=== PATIENT | male | born 1950 | race Caucasian/White ===

== ENCOUNTER 2019-02-09 17:26 | Emergency (ER) | payer MEDICARE ==
[2019-02-09 17:58] LABS: #Basophils 0.1 thou/uL (0.0-0.2); #Eosinphils 0.1 thou/uL (0.0-0.7); #Lymphocytes 1.7 thou/uL (1.20-3.40); #Monocytes 0.4 thou/uL (0.11-0.59); #Neutrophils 4.2 thou/uL (1.40-6.50); %Basophils 1.4 % (0.0-1.0); %Eosinophils 1.4 % (0.0-10.0); %Lymphocytes 26.2 % (21.0-51.0); %Monocytes 6.7 % (0.0-10.0); %Neutrophils 64.4 % (42.0-75.0); Hemoglobin 16.6 g/dL (14.0-18.0); Mean Corpuscular Hemoglobin 27.5 pg (27.0-31.0); Mean Corpuscular Volume 83.5 fL (78.0-98.0); Mean Platelet Volume 7.6 fL (7.4-10.4); Platelet Count 216 thou/uL (130-400); RBC Distribution Width 13.3 % (11.5-14.5); Red Blood Cell (RBC) Count 6.02 mill/uL (4.70-6.10); White Blood Cell (WBC) Count 6.5 thou/uL (4.8-10.8)
[2019-02-09 18:20] LABS: ALT (SGPT) 17 U/L (8-55); AST (SGOT) 18 U/L (5-34); Albumin 4.1 g/dL (3.4-4.8); Alkaline Phosphatase 90 U/L (40-150); Anion Gap 16 mmol/L (10-20); BUN (Urea Nitrogen) 17 mg/dL (8.4-25.7); Bilirubin, Total 0.6 mg/dL (0.2-1.2); Calc. Creatinine Clearance 0 mL/min (70-130); Calcium 9.4 mg/dL (7.8-10.44); Carbon Dioxide 23 mmol/L (23-31); Chloride 103 mmol/L (98-107); Estimated GFR-MDRD 78; Glucose 307 mg/dL (80-115); Potassium 3.8 mmol/L (3.5-5.1); Protein, Total 7.1 g/dL (5.8-8.1); Sodium 138 mmol/L (136-145)
--- NOTE | 2019-02-09 18:30 | CT ---
FCT head without contrast: Multiple axial tomograms obtained through the head without IV enhancement. INDICATIONS: Seizure COMPARISON: None FINDINGS: Ventricles have normal size and position. Mild frontal lobe volume loss. No evidence of hemorrhage, mass, or acute cortical infarct. There are focal areas of low-attenuation seen in the periventricular white matter and the deep white matter both cerebral hemispheres. While these findings may represent chronic ischemic white matter ch cara, the focal nature is somewhat atypical. Visualized sinuses and mastoids appear clear. Bony calvarium appears unremarkable. IMPRESSION: Multiple focal areas low attenuation in the periventricular and deep white matter of both cerebral he mispheres. Findings may represent old lacunar infarcts and/or chronic ischemic white matter change. T he focal appearance is atypical. Recommend further evaluation with MRI brain with and without contras t.
--- NOTE | 2019-02-09 21:33 | MRI ---
MRI BRAIN WITH AND WITHOUT CONTRAST: Technique: Multiplanar, multisequence MRI images were obtained of the brain. Post gadolinium images o btained after administering IV MultiHance. Indications: Dizziness, weakness, possible seizure. Exam was also performed in follow up to the CT he ad which showed focal areas of low attenuation in the deep white matter of both cerebral hemispheres. FINDINGS: The exam is somewhat degraded due to motion artifact on all sequences. Ventricles have normal size and position. FLAIR sequence shows areas of high signal in the periventri cular white matter bilaterally, corresponding to the CT findings. There is no abnormal enhancement as sociated with these foci. There is no restricted diffusion seen, and therefore, no evidence of acute cortical or lacunar infarct. There is no mass or edema within the brain. The intracranial internal carotid arteries and proximal cerebral arteries demonstrate expected flow v oids. Dural venous sinuses appear patent. Orbits unremarkable. Paranasal sinuses and mastoids appear clear. IMPRESSION: Increased T2 and FLAIR signal in the periventricular white matter corresponding to the areas of low a ttenuation seen on CT. No abnormal enhancement. Findings are probably related to chronic microvascula r ischemic white matter change in a patient of this age. POS: JUSTUS
== END 2019-02-09 21:52 | disposition home or self-care (01) ==
LOC: ERS 17:26
DX: R56.9 Unspecified convulsions (principal); E11.9 Type 2 diabetes mellitus without complications; M10.9 Gout, unspecified; F17.210 Nicotine dependence, cigarettes, uncomplicated
CPT/HCPCS: 36415; 70450; 70553; 80053; 85025; 93005

== ENCOUNTER 2019-11-23 03:12 | Inpatient (IN) | payer MEDICARE ==
[2019-11-23] MEDS ORDERED: Acetaminophen 325 MG TAB PO PRN (04:42)
[2019-11-23 05:06] LABS: Troponin I Less than 0.010 ng/mL (< 0.028)
--- NOTE | 2019-11-23 05:26 | HP ---
PRIMARY CARE PHYSICIAN: None. CHIEF COMPLAINT: Shortness of breath. HISTORY OF PRESENT ILLNESS: A 69-year-old male, limited historian, who presented to [facility] ER for shortness of breath that awoke him from his sleep, associated with cough, prompting further evaluation. The patient reports being in his usual state of health and being functional active at baseline. He reports at 4:00 p.m. feeding his Haley and tending to routine chores and at 7:30 p.m., eating tuna fish with crackers and then going to sleep. He awoke several hours later with some vague epigastric discomfort and shortness of breath and coughing episode expiratory and his boss called paramedics for further evaluation. The patient was placed on oxygen nasal cannula at a tertiary ER and a chest x-ray suggested bibasilar crackles. BNP was mildly elevated at 266.5, and the patient was administered oral aspirin, 80 mg IV Lasix, oral lisinopril, and transferred to [facility] ER for further evaluation. In ER, the patient was reported to be desaturating to 80s on room air and maintained with oxygen nasal cannula with appropriate oxygenation. At bedside, the patient reports feeling improved. Since hospitalization, he has voided a little bit. He denies any orthopnea or lower extremity edema or recent changes in functional status or angina. He denies any fevers or chills or any sick contacts. He does not use any nebulizer treatments at home and notes chronic tobacco use history. PAST MEDICAL HISTORY: None reported, and the patient does not seek any chronic medical care. PAST SURGICAL HISTORY: Right knee ACL repair. SOCIAL HISTORY: The patient admits to tobacco use, 1 pack to 1-1/2 packs per day. He denies alcohol or illicit drug use. ALLERGIES: ARE LISTED TO IBUPROFEN AND ADVIL. REVIEW OF SYSTEMS: Positive for chills. Pertinent positives noted as per HPI. Remainder of the review of systems negative. HOME MEDICATIONS: Will be reviewed as per admission medication reconciliation. FAMILY HISTORY: The patient notes longevity in both his family members. PHYSICAL EXAMINATION: VITAL SIGNS: Temperature 97.5, pulse 80s to 90s, sinus rhythm, blood pressure 137/85, oxygen saturation 94% on 2 L nasal cannula, and respirations 16 to 18 unlabored. GENERAL APPEARANCE: Elderly rugged-appearing male who is awake, alert, oriented, and limited historian, not in any obvious distress. HEENT: Normocephalic, atraumatic. No facial asymmetry. Pupils equally round. Extraocular muscles intact. Moist mucous membranes. NECK: Supple. CARDIOVASCULAR: S1, S2. Regular rate and rhythm. There is an audible S3. There are no harsh murmurs noted. There is no chest wall tenderness to palpation. LUNGS: Nonlabored respiration on bilateral posterior auscultation, coarse scattered breath sounds throughout bilateral posterior lung lopez with bibasilar rales noted. ABDOMEN: Soft, nontender, nondistended. No peritoneal signs. EXTREMITIES: No appreciable edema, cyanosis, or deformity. SKIN: Warm to touch without rash or pallor. Scattered abrasions throughout the body noted. LABORATORY DATA: Sodium 140, potassium 4.2, chloride 103, bicarb 27, glucose 242, BUN and creatinine 13/0.92, GFR 82. LFTs unremarkable. Troponin I negative x1. BNP 266.5. Albumin 4.0. WBC 7.9, hemoglobin and hematocrit 15.7/52.5, platelets 209. IMAGING DATA: One-view chest x-ray done in the ER. Official result is still pending, but reported to suggest bibasilar rales. ASSESSMENT: 1. Acute hypoxic respiratory failure, suspected secondary to acute congestive heart failure exacerbation. 2. Acute congestive heart failure exacerbation of unspecified type. 3. Chronic nicotine dependence. PLAN: 1. The patient will be admitted as inpatient status and placed on telemetry monitoring. He has been placed on oxygen nasal cannula, received 80 mg of IV Lasix with improvement in the symptoms and starting to diurese. We will monitor serial cardiac biomarkers to exclude acute coronary syndrome. We will obtain transthoracic echocardiogram to evaluate for any cardiac, structural, or valvular abnormalities. Continue IV Lasix. Monitor for electrolyte derangements. Monitor for weaning off oxygen nasal cannula for any other causes that may be contributing to resting hypoxia. The patient has good functional status and denies any concerns for venous stasis. 2. Deep venous thrombosis prophylaxis with Lovenox. 3. Check a.m. labs on 11/24/2019. CODE STATUS: Full code. The patient seen and examined on 11/23/2019. Job ID: [id number]
[2019-11-23] MEDS ORDERED: Nicotine 21 MG PATCH TD PRN (06:00)
[2019-11-23 06:03] VITALS: BMI 34.0
[2019-11-23] MEDS ORDERED: Dextrose 50% Abboject 50 ML SYRINGE SLOW IVP PRN (07:44)
[2019-11-23] MEDS ORDERED: Dextrose 5% in Water 1,000 ML IV PRN (07:44)
[2019-11-23 08:00] LABS: Troponin I 0.022 ng/mL (< 0.028)
[2019-11-23] MEDS ORDERED: levETIRAcetam 500 MG TAB PO SCH (10:00)
[2019-11-23] MEDS: Enoxaparin Sodium 40 MG/0.4 ML SYRINGE SC SCH (10:18)
[2019-11-23] MEDS: Furosemide 40 MG/4 ML VIAL SLOW IVP SCH ×2 (10:19→13:32)
[2019-11-23] MEDS: HumaLOG 300 UNITS/3 ML VIAL SC PRN ×2 (13:32→18:46)
--- NOTE | 2019-11-23 16:16 | PDOC.EVN ---
Event Note - Event Note Event Note: Patient seen and examined. He says he was told at one time that he was a borderline diabetic, but was not aware of being diabetic. Continues to smoke 1- 1.5 PPD cigs. Feeling much better overall. Heart RRR. Lungs diminished, but otherwise clear. Abd. benign. No edema. Continue diuresis. Follow up on echo. Diabetic diet, po meds.
[2019-11-23] MEDS: metFORMIN 500 MG TAB PO SCH (16:54)
[2019-11-23] MEDS: levETIRAcetam 500 MG TAB PO SCH (21:08)
[2019-11-24 04:45] LABS: Anion Gap 13 mmol/L (10-20); BUN (Urea Nitrogen) 20 mg/dL (8.4-25.7); Calc. Creatinine Clearance 106 mL/min (70-130); Calcium 9.2 mg/dL (7.8-10.44); Carbon Dioxide 30 mmol/L (23-31); Chloride 93 mmol/L (98-107); Estimated GFR-MDRD 76; Glucose 211 mg/dL (80-115); Potassium 3.2 mmol/L (3.5-5.1); Sodium 133 mmol/L (136-145)
[2019-11-24] MEDS ORDERED: Potassium Chloride 20 MEQ TAB PO SCH (07:45)
[2019-11-24] MEDS: metFORMIN 500 MG TAB PO SCH (08:53)
[2019-11-24] MEDS: Enoxaparin Sodium 40 MG/0.4 ML SYRINGE SC SCH (08:54)
[2019-11-24] MEDS: levETIRAcetam 500 MG TAB PO SCH ×2 (08:54→20:37)
[2019-11-24] MEDS: Aspirin Chewable 81 MG TAB PO SCH (08:54)
[2019-11-24] MEDS: HumaLOG 300 UNITS/3 ML VIAL SC PRN ×3 (08:57→19:44)
[2019-11-24] MEDS ORDERED: Communication Order-Pharmacy FS SCH ×2 (12:30→13:00)
--- NOTE | 2019-11-24 13:44 | CON ---
DATE OF CONSULTATION: HISTORY OF PRESENT ILLNESS: Wes Torre is a 69-year-old white male without any significant previous health problems except he thinks he has diabetes. He also has a seizure disorder that he states started in January 2019. He was evaluated in the emergency room here but not admitted. The emergency room records unfortunately cannot be called up on the computer system. He apparently was on top of a Hay, throwing Hay addis and then blacked out and found himself on the ground. He apparently was diagnosed as having seizure disorder and was placed on Keppra. He had another episode where he was walking upstairs to go to the bathroom and again found himself on the floor. He has never undergone cardiac evaluation. He does have some dyspnea on exertion if he walks rapidly. He denies any significant chest discomfort. He was taken to [facility] yesterday for increasing shortness of breath. He was transferred here for further evaluation. He apparently was desaturating to room air in the 80s in the emergency room. In [facility], he was given Lasix 40 mg IV, lisinopril 10 mg p.o., another 40 mg of Lasix IV, and aspirin 324 mg. At present time, he states that his breathing has improved. It is also of note that in January 2019 that his EKG was normal and now he has a left bundle-branch block. PAST MEDICAL HISTORY: Diabetes, untreated and history of seizure disorder, on Keppra. MEDICATIONS: 1. Keppra 500 mg b.i.d. 2. Aspirin 81 daily. ALLERGIES: NONSTEROIDAL ANTI-INFLAMMATORY DRUGS. PAST SURGICAL HISTORY: Right knee surgery. SOCIAL HISTORY: He continues to smoke 1 to 1-1/2 packs per day. He does not drink alcohol. FAMILY HISTORY: Mother had bypass surgery. Father of his heart wearing out. REVIEW OF SYSTEMS: Ten-point review of systems is otherwise unremarkable. PHYSICAL EXAMINATION: VITAL SIGNS: Blood pressure 106/64, pulse of 87. HEENT: PERRL. NECK: Supple. CHEST: Clear, but distant. CARDIOVASCULAR: S1 and S2 normal without any S3, S4, or murmurs. Carotid upstrokes normal without bruits. ABDOMEN: Normal bowel sounds without tenderness or organomegaly. EXTREMITIES: Revealed no clubbing, cyanosis, or edema. NEUROLOGICAL: Grossly intact. LABORATORY DATA: EKG reveals normal sinus rhythm with left bundle-branch block, which is a new finding from January 2019. Chest x-ray revealed probable pulmonary edema. His echocardiogram revealed ejection fraction of 25% to 30% with evidence for diastolic dysfunction, dilated left ventricle, septal bounce consistent with left bundle-branch block morphology, mild left atrial enlargement, mitral annular calcification, [id number] mitral regurgitation, aortic valvular sclerosis, mild tricuspid regurgitation. Hemoglobin 15.7, hematocrit 52.5, white count 7900, and platelets 209,000. Sodium 133, potassium 3.2, chloride 93, carbon dioxide 30, BUN 20, creatinine 0.98, and blood sugar has been as high as 327. Troponin I is unremarkable. IMPRESSION: 1. Acute pulmonary edema. 2. Severe left ventricular dysfunction. 3. Smoker. 4. Untreated diabetes. 5. Unknown cholesterol status. 6. Positive family history. 7. Questionable history of seizure disorder, which certainly could be due to some type of cardiac arrhythmia. 8. Wide-complex tachycardia at 140 to 150 per minute. PLAN: Fasting lipid profile will be obtained. The situation was discussed with the patient. It is recommended that he undergo cardiac catheterization with his severe left ventricular dysfunction and new left bundle-branch block. Risks of catheterization were discussed including , myocardial infarction, dye reaction, vascular injury, CVA, transfusion, limb loss, renal loss, etc. Also risk of intervention with PTCA and stent placement were discussed including , myocardial infarction, emergent CABG, restenosis, stent thrombosis, vessel perforation, etc. He has no history of gastrointestinal bleeding. He does not have any upcoming surgeries. He has never had a stroke. Overall, it is recommended that a drug-eluting stent be placed if required. At the present time, his blood pressure is somewhat low and I ideally would like to place him on carvedilol and an COOPER and attempt will be made to do this once his blood pressure has improved. Also, I am not certain about the diagnosis of seizures, he certainly could have had syncope on the basis of ventricular arrhythmias. Job ID: [id number] MTDD
--- NOTE | 2019-11-24 14:13 | PDOC.HOSPP ---
- Subjective Subjective: Says he feels ok. No SOB. No CP. Breathing is at baseline. - Objective Vital Signs & Weight: Vital Signs (12 hours) Temp Pulse Resp BP Pulse Ox 11/24/19 11:53 98.3 F 87 15 106/64 95 11/24/19 08:05 91 L 11/24/19 07:59 97.8 F 88 13 111/70 90 L 11/24/19 04:00 98.1 F 87 16 90/51 L 96 Weight Weight 221 lb 5 oz I&O: 11/23/19 11/24/19 11/25/19 06:59 06:59 06:59 Intake Total 1920 Balance 1920 Result Diagrams: 11/24/19 04:04 Additional Labs: Accuchecks 11/24/19 11/24/19 11/23/19 11:04 05:54 20:43 POC Glucose 264 H 218 H 211 H 11/23/19 17:43 POC Glucose 165 H Hospitalist ROS - Medication Medications: Active Medications Generic Name Dose Route Start Last Admin Trade Name Demondq PRN Reason Stop Dose Admin Aspirin 81 mg 11/24/19 09:00 11/24/19 08:54 Aspirin Chewable PO 81 mg DAILY AUDREY Administration Enoxaparin Sodium 40 mg 11/23/19 09:00 11/24/19 08:54 Lovenox SC 11/24/19 23:00 40 mg 0900 AUDREY Administration Insulin Human Lispro 0 units 11/23/19 07:44 11/24/19 12:09 Humalog SC 11/25/19 00:01 4 unit .MILD SLIDING SCALE PRN Administration Mild Correctional Scale Levetiracetam 500 mg 11/23/19 21:00 11/24/19 08:54 Keppra PO 500 mg BID AUDREY Administration Metformin HCl 500 mg 11/23/19 17:00 11/24/19 08:53 Glucophage PO 11/25/19 00:01 500 mg BID-WM AUDREY Administration Nicotine 21 mg 11/23/19 06:00 11/23/19 17:56 Nicoderm Patch TD 21 mg Q24HR PRN Administration Smoking Cessation - Exam General Appearance: NAD, awake alert Heart: RRR, no murmur, no gallops, no rubs, normal peripheral pulses Respiratory: CTAB, no wheezes, no rales, no ronchi, normal chest expansion, no tachypnea, normal percussion Respiratory - other findings: Diminished Gastrointestinal: soft, non-tender, non-distended, normal bowel sounds, no palpable masses, no hepatomegaly, no splenomegaly, no bruit Extremities: no cyanosis, no clubbing, no edema Skin: normal turgor Neurological: no focal deficits Musculoskeletal: normal tone Psychiatric: normal affect, normal behavior, A&O x 3 Hosp A/P (1) Acute systolic CHF (congestive heart failure), NYHA class 2 Code(s): I50.21 - ACUTE SYSTOLIC (CONGESTIVE) HEART FAILURE Status: Acute (2) Cardiomyopathy Code(s): I42.9 - CARDIOMYOPATHY, UNSPECIFIED Status: Acute (3) Diabetes mellitus Code(s): E11.9 - TYPE 2 DIABETES MELLITUS WITHOUT COMPLICATIONS Status: Acute (4) Wide-complex tachycardia Code(s): I47.2 - VENTRICULAR TACHYCARDIA Status: Acute (5) Hx of syncope Code(s): Z87.898 - PERSONAL HISTORY OF OTHER SPECIFIED CONDITIONS Status: Chronic (6) Tobacco abuse Code(s): Z72.0 - TOBACCO USE Status: Chronic - Plan Echo with severely reduced EF. BP does not allow for much medical intervention with ACEI, BB. Will defer that to cards. He will need a cath to define the source of the CM. Cardiology consult. Acute CHF symptoms appear to be improved. Appears euvolemic. Stop diuretics. Blood sugar control with meds. Will hold metformin in light of need for cath. SSI. Diabetic diet. Diabetic education. Discussed his wide complex tachycardia. Given his hx of syncopal events that were diagnosed as seizures, I have concern that he may have been experiencing arrhythmias. May need defibrillator sooner that later. Will need cath first. He has a nicotine patch. Says it doesn't help much. Strongly encouraged to DC smoking.
[2019-11-25 04:59] LABS: Anion Gap 11 mmol/L (10-20); BUN (Urea Nitrogen) 18 mg/dL (8.4-25.7); Calc. Creatinine Clearance 121 mL/min (70-130); Calcium 9.1 mg/dL (7.8-10.44); Carbon Dioxide 28 mmol/L (23-31); Cardiac Risk 6.3 (Less than 4.5); Chloride 102 mmol/L (98-107); Cholesterol 222 mg/dl (< 200 Desired); Estimated GFR-MDRD Greater than 90; Glucose 215 mg/dL (80-115); HDL Cholesterol 35 mg/dL (>60 Neg Risk); LDL Cholesterol, Calculated 145 mg/dL; Potassium 3.8 mmol/L (3.5-5.1); Sodium 137 mmol/L (136-145); Triglycerides 212 mg/dL (Less than 150)
[2019-11-25] MEDS: levETIRAcetam 500 MG TAB PO SCH ×2 (05:09→21:54)
[2019-11-25] MEDS: Aspirin Chewable 81 MG TAB PO SCH (05:09)
[2019-11-25] MEDS ORDERED: Sodium Chloride 0.9% 1,000 ML IV SCH ×3 (06:00→07:55)
[2019-11-25] MEDS ORDERED: Heparin (Artline) 1,000 ML ONE (06:27)
[2019-11-25] MEDS ORDERED: Heparin 10,000 UNITS/1 ML VIAL ONE (06:27)
[2019-11-25] MEDS ORDERED: Lidocaine 1% (PF) 30 ML VIAL ONE (06:28)
[2019-11-25] MEDS ORDERED: Fentanyl 100 MCG/2 ML VIAL ONE (07:12)
[2019-11-25] MEDS ORDERED: Midazolam HCl 2 mg/2 ml Vial ONE (07:12)
[2019-11-25] MEDS ORDERED: Protamine Sulfate 50 MG/5 ML VIAL ONE (07:38)
[2019-11-25] MEDS ORDERED: Acetaminophen/Codeine 30-300mg Tablet PO PRN ×2 (07:54)
[2019-11-25] MEDS ORDERED: Nitroglycerin 0.4 MG TAB (25 Tab Bottle) SL PRN (07:54)
[2019-11-25] MEDS ORDERED: Sodium Chloride 0.9% 250 ML 200 ML IV PRN (07:54)
[2019-11-25] MEDS: Furosemide 20 MG TAB PO SCH (08:47)
[2019-11-25] MEDS: Carvedilol 3.125 MG TAB PO SCH ×2 (08:48→16:47)
--- NOTE | 2019-11-25 11:47 | CON ---
DATE OF CONSULTATION: 11/25/2019 HISTORY OF PRESENT ILLNESS: I am seeing Mr. Torre at our [facility] telemetry floor as an electrophysiology technical services consultant. His problems are: 1. Newly found ischemic cardiomyopathy with acute decompensation. a. Three-vessel coronary artery disease on left heart catheterization today, planned medical management. b. 2D echo initial, LVEF of 25% to 30%. 2. Newly found left bundle-branch block. 3. Nonsustained ventricular tachycardia on telemetry. 4. History of syncope/seizure disorder, diagnosed last year. 5. History of smoking. 6. Hypercholesteremia. ALLERGIES: NONSTEROIDALS. MEDICATIONS AT HOME: 1. Aspirin. 2. Keppra. SUBJECTIVE: Mr. Torre is here after worsening heart failure like symptoms and dyspnea, starting just 4 or 5 days back. He has done fair prior to this. He does not pass out. No stroke-like symptoms. No neurological deficits. No fever, chills, or cough noted at this time. He had some PND and orthopnea. He also has dyspnea on walking fast. He has been diuresed and now feeling better, able to lie flat. REVIEW OF SYSTEMS: Rest of 12-point review of system otherwise unremarkable. PAST HISTORY: The patient had prior history of syncopal spell back in 01/2019, which again recurred later, the 1st episode occurred while he was throwing hay addis and backed out subsequently. The 2nd episode was happening while he walking upstairs. He was diagnosed with seizure disorder and was started on Keppra. Left heart catheterization this admission this morning actually revealed 3- vessel coronary artery disease and medical management is planned, 99% circumflex occlusion, 50% LAD and RCA occlusion, 60% mid-LAD occlusion is noted. His LVEF is severely reduced. Telemetry strips did reveal episode of nonsustained wide-complex tachycardia. His left bundle-branch block is newly found compared to his prior EKG in January. SOCIAL HISTORY: The patient denies drug abuse. He is a chronic smoker 1 to 1-1 /2 packs per day. Denies drug use. FAMILY HISTORY: Not contributory. OBJECTIVE DATA: VITAL SIGNS: Blood pressure is 109/69, heart rate 79, respirations 14, and temperature 97.8 degrees Fahrenheit. GENERAL: This is an alert and oriented man, in no apparent distress. NECK: Supple. Jugular veins not distended. CHEST: Coarse without crackles. HEART: Sounds are regular rate and rhythm. No murmur or gallop. ABDOMEN: Benign. Bowel sounds positive. EXTREMITIES: Lower extremities without edema, clubbing, or cyanosis. Pulses are adequate. NEUROLOGIC: The patient is nonfocal. MUSCULOSKELETAL: Without joint swelling or deformity. SKIN: Without rash. DATABASE: The EKG is reviewed, revealing left bundle-branch block pattern EKG, sinus rhythm, rate of 93 beats per minute, occasional PVCs are seen. Prior EKG from 01/2019 reveals a narrow-complex QRS. Telemetry strips revealed 10 beats of wide-complex tachycardia. ASSESSMENT AND PLAN: Mr. Torre is a 69-year-old man with prior history of diabetes, possible seizure disorder vs.syncopal spells, newly found acute heart failure with a newly found left bundle-branch block, severely reduced left ventricular ejection fraction, and a newly diagnosed coronary artery disease as well. I discussed the findings with him. I suspect he had a prior subclinical myocardial infarction, which resulted in his reduced his LVEF, and also LV dyssynchrony further worsening his cardiac function. Now he become symptomatic. Prior syncopal spells are very possibly due to ventricular tachycardia as well. He is clearly inb risk of future malignanat ventricular arrhythmia. I think it is reasonable to consider proceeding with ICD implant at this time, Bi-V stimulation likely will minimize future hospitalization and CHF recurrences as well. Risks and benefits were discussed. He is undecided, will consider for tomorrow. Job ID: [id number] [facility]
[2019-11-25] MEDS ORDERED: Iopamidol 370 76% 100 ML VIAL ONE (13:18)
--- NOTE | 2019-11-25 16:49 | PDOC.HOSPP ---
- Subjective Subjective: Doing well. Denies complaints. - Objective Vital Signs & Weight: Vital Signs (12 hours) Temp Pulse Resp BP Pulse Ox 11/25/19 12:00 97.8 F 84 18 123/73 94 L 11/25/19 08:05 94 L 11/25/19 08:00 97.8 F 79 14 109/69 94 L Weight Weight 217 lb 2.485 oz I&O: 11/24/19 11/25/19 11/26/19 06:59 06:59 06:59 Intake Total 1919 2159 Balance 1919 2159 Result Diagrams: 11/25/19 04:23 Additional Labs: Accuchecks 11/25/19 11/25/19 11/24/19 10:31 05:28 20:30 POC Glucose 205 H 210 H 232 H 11/24/19 18:23 POC Glucose 247 H Hospitalist ROS - Medication Medications: Active Medications Generic Name Dose Route Start Last Admin Trade Name Freq PRN Reason Stop Dose Admin Aspirin 81 mg 11/24/19 09:00 11/25/19 05:09 Aspirin Chewable PO 81 mg DAILY AUDREY Administration Carvedilol 1.5625 mg 11/25/19 08:00 11/25/19 08:48 Coreg PO 1.5625 mg BID-WM AUDREY Administration Furosemide 20 mg 11/25/19 09:00 11/25/19 08:47 Lasix PO 20 mg DAILY AUDREY Administration Levetiracetam 500 mg 11/23/19 21:00 11/25/19 05:09 Keppra PO 500 mg BID AUDREY Administration - Exam General Appearance: NAD, awake alert Heart: RRR, no murmur, no gallops, no rubs, normal peripheral pulses Respiratory: CTAB, no wheezes, no rales, no ronchi, normal chest expansion, no tachypnea, normal percussion Gastrointestinal: soft, non-tender, non-distended, normal bowel sounds, no palpable masses, no hepatomegaly, no splenomegaly, no bruit Extremities: no cyanosis, no clubbing, no edema Skin: normal turgor Psychiatric: normal affect, normal behavior, A&O x 3 Hosp A/P (1) Acute systolic CHF (congestive heart failure), NYHA class 2 Code(s): I50.21 - ACUTE SYSTOLIC (CONGESTIVE) HEART FAILURE Status: Acute (2) Cardiomyopathy Code(s): I42.9 - CARDIOMYOPATHY, UNSPECIFIED Status: Acute (3) Diabetes mellitus Code(s): E11.9 - TYPE 2 DIABETES MELLITUS WITHOUT COMPLICATIONS Status: Acute (4) Wide-complex tachycardia Code(s): I47.2 - VENTRICULAR TACHYCARDIA Status: Acute (5) Hx of syncope Code(s): Z87.898 - PERSONAL HISTORY OF OTHER SPECIFIED CONDITIONS Status: Chronic (6) Tobacco abuse Code(s): Z72.0 - TOBACCO USE Status: Chronic - Plan Echo with severely reduced EF. BP does not allow for much medical intervention with ACEI, BB. Cards started very low dose Coreg. Will watch BP. Cards did cath today with some CAD, but nothing necessitating intervention at this time. Acute CHF symptoms appear to be improved. Appears euvolemic. Stop diuretics. Blood sugar control with meds. Held metformin in light of need for cath. Can likely resume tomorrow. SSI. Diabetic diet. Diabetic education. Discussed his wide complex tachycardia. Given his hx of syncopal events that were diagnosed as seizures, I have concern that he may have been experiencing arrhythmias. Seen in consult by EP. Plan is for defib with Bi-V pacer this visit. He has a nicotine patch. Says it doesn't help much. Strongly encouraged to DC smoking.
[2019-11-25] MEDS ORDERED: HumaLOG 300 UNITS/3 ML VIAL SC PRN ×2 (20:24)
[2019-11-25] MEDS ORDERED: Atorvastatin Calcium 40 MG TAB PO SCH (21:00)
--- NOTE | 2019-11-26 00:13 | CON ---
DATE OF CONSULTATION: 11/25/2019 CONSULTING PHYSICIAN: Ryan Coy MD IMPRESSION: Seizure disorder that is well controlled on Keppra. PLAN: 1. Continue Keppra 500 mg twice a day. 2. Office followup. HISTORY OF PRESENT ILLNESS: Mr. Torre is a 69-year-old gentleman with a past history of seizure disorder, diabetes, and new diagnosis of congestive heart failure. He reports that his last seizure was sometime last year. He has been on Keppra and is tolerating it well. It seems he has not had any further seizures since starting on this medication. He had an MRI of the brain done several months ago, which showed some small-vessel ischemic changes but otherwise is unremarkable. He denies any history of stroke-like episodes in the past. He does not use any alcohol or drugs. He is noted to have an ejection fraction of around 25%. Dr. Coy is making game plan as to whether he needs a pacemaker defibrillator. PAST MEDICAL HISTORY: As listed above. ALLERGIES: NONSTEROIDAL. SOCIAL HISTORY: Positive for tobacco. FAMILY HISTORY: Noncontributory. REVIEW OF SYSTEMS: Ten-system review of systems is otherwise unremarkable. PHYSICAL EXAMINATION: GENERAL: He is a well-nourished elderly man, in no acute distress. VITAL SIGNS: Temperature 97.5, respirations 18. HEENT: Pupils are equal and reactive. Conjunctivae clear. Oropharynx clear. Cranium, normocephalic and atraumatic. NECK: Supple. No lymphadenopathy. EXTREMITIES: No cyanosis. NEUROLOGIC: He is alert and appropriate. His speech is fluent and clear. Cranial nerves 2 through 12 are intact. Motor exam showed good strength bilaterally. There is no fix or drift. There is no tremor or dysmetria. Sensation was intact to light touch. He can walk independently. No abnormal movements were seen. IMAGING: EKG shows a left bundle branch block. SUMMARY: Elderly gentleman with a history of seizures, does not appear to have an underlying structural cause other than his small vessel disease. He is well controlled on Keppra. I would be happy to follow up with him as an outpatient. Job ID: [id number]
[2019-11-26] MEDS: Aspirin Chewable 81 MG TAB PO SCH (08:13)
[2019-11-26] MEDS: Carvedilol 3.125 MG TAB PO SCH ×2 (08:13→16:08)
[2019-11-26] MEDS: levETIRAcetam 500 MG TAB PO SCH (08:14)
[2019-11-26] MEDS: metFORMIN 500 MG TAB PO SCH ×2 (08:14→16:08)
[2019-11-26] MEDS: Furosemide 20 MG TAB PO SCH (08:14)
[2019-11-26 10:20] LABS: Anion Gap 13 mmol/L (10-20); BUN (Urea Nitrogen) 15 mg/dL (8.4-25.7); Calc. Creatinine Clearance 116 mL/min (70-130); Calcium 9.5 mg/dL (7.8-10.44); Carbon Dioxide 26 mmol/L (23-31); Chloride 102 mmol/L (98-107); Estimated GFR-MDRD Greater than 90; Glucose 249 mg/dL (80-115); Potassium 4.4 mmol/L (3.5-5.1); Sodium 137 mmol/L (136-145)
--- NOTE | 2019-11-26 12:08 | PDOC.EP ---
- Subjective Date: 11/26/19 Time: 12:06 Interval History: follow up for consideration of BiV ICD and arrhythmia management. - Review of Systems Constitutional: denies: chills, fever, malaise, sweats, weakness Respiratory: reports: shortness of breath. denies: cough, pleuritic pain Cardiology: denies: chest pain, edema, light headedness, palpitations, passing out, pressure, swelling Gastrointestinal: denies: abdominal pain, constipation, diarrhea, nausea, vomitting Musculoskeletal: denies: unstable gait, falls, leg pain - Objective Allergies/Adverse Reactions: Allergies Allergy/AdvReac Type Severity Reaction Status Date / Time NSAIDS (Non-Steroidal Allergy Unverified 11/23/19 05:04 Anti-Inflamma Current Medications Acetaminophen (Tylenol) 650 mg PO Q4H PRN PRN Reason: Headache/Fever/Mild Pain (1-3) Acetaminophen/Codeine Phosphate (Tylenol #3) 1 tab PO Q4H PRN PRN Reason: Mild Pain (1-3) Acetaminophen/Codeine Phosphate (Tylenol #3) 2 tab PO Q4H PRN PRN Reason: Moderate Pain (4-6) Aspirin (Aspirin Chewable) 81 mg PO DAILY [facility] Last Admin: 11/26/19 08:13 Dose: 81 mg Atorvastatin Calcium (Lipitor) 40 mg PO HS [facility] Last Admin: 11/25/19 21:54 Dose: 40 mg Carvedilol (Coreg) 1.5625 mg PO BID-[facility] Last Admin: 11/26/19 08:13 Dose: 1.5625 mg Dextrose/Water (Dextrose 50%) 25 gm SLOW IVP PRN PRN PRN Reason: Hypoglycemia Furosemide (Lasix) 20 mg PO DAILY [facility] Last Admin: 11/26/19 08:14 Dose: 20 mg Glucagon (Glucagon) 1 mg IM PRN PRN PRN Reason: Hypoglycemia Dextrose/Water (D5w) 1,000 mls @ 0 mls/hr IV .Q0M PRN PRN Reason: Hypoglycemia Insulin Human Lispro (Humalog) 0 units SC .MILD SLIDING SCALE PRN PRN Reason: Mild Correctional Scale Insulin Human Lispro (Humalog) 0 units SC .BEDTIME SLIDING SC PRN PRN Reason: Bedtime Correctional Scale Last Admin: 11/25/19 21:54 Dose: 2 unit Levetiracetam (Keppra) 500 mg PO BID [facility] Last Admin: 11/26/19 08:14 Dose: 500 mg Metformin HCl (Glucophage) 500 mg PO BID-[facility] Last Admin: 11/26/19 08:14 Dose: Not Given Nitroglycerin (Nitrostat) 0.4 mg SL Q5MIN PRN PRN Reason: Chest Pain Vital Signs & Weight: Vital Signs Temp Pulse Pulse Pulse Resp BP BP 11/26/19 11:34 97.5 F L 76 17 11/26/19 10:10 11/26/19 10:03 75 84 111/68 126/67 11/26/19 07:52 98 F 77 18 11/26/19 03:20 97.4 F L 80 18 BP Pulse Ox Pulse Ox Pulse Ox 11/26/19 11:34 104/59 L 96 11/26/19 10:10 93 L 11/26/19 10:03 89 L 94 L 11/26/19 07:52 110/62 93 L 11/26/19 03:20 111/63 91 L Weight 215 lb I/O: I/O 11/25/19 11/26/19 11/27/19 06:59 06:59 06:59 Intake Total 2160 2200 Output Total 1050 Balance 2160 1150 - Physical Exam General: alert & oriented x3, appears well, no apparent distress, speech clear, affect appropriate HEENT: mucus membranes moist, normocephaly, EOMI. negative: jaundice Neck: supple neck, midline trachea, no lymphadenopathy, JVD/HJR Cardiology: regular rate and rhythm, regular rate, PMI, lateral displaced Lungs: clear to auscultation, normal breath sounds, no wheeze, rales, rhonchi Neurology: cranial nerve 2-12 intact, grossly intact, sensory function intact Abdomen: unremarkable, active bowel sounds, no pulsations/bruits, no hepatosplenomegaly Extremities: dry, strong pulses, warm - Labs Result Diagrams: 11/26/19 09:36 - EKG Interpretation EKG Method: Telemetry EKG shows: Sinus rhythm (LBBB) - Assessment/Plan Assessment/Plan: 1. Newly found ischemic cardiomyopathy with acute decompensation. a. Three-vessel coronary artery disease on left heart catheterization today, planned medical management. b. 2D echo initial, LVEF of 25% to 30%. 2. Newly found left bundle-branch block. 3. Nonsustained ventricular tachycardia on telemetry. 4. History of syncope/seizure disorder, diagnosed last year. 5. History of smoking. 6. Hypercholesteremia. Recommend BiV ICD to correct LV dissynchrony and protect from SCD with cardiomyopathy. Patient is declining ICD implant after extensive conversation about indications and concerns. He opts for medical management at this time but would be willing to consider device in the future if medication efforts are not enough to recover EF alone. He also declined life vest.
[2019-11-26 15:50] VITALS: BP 113/77; TEMP 97.6
--- NOTE | 2019-11-27 15:20 | DIS ---
DATE OF ADMISSION: 11/23/2019 DATE OF DISCHARGE: 11/26/2019 DISCHARGE DIAGNOSES: 1. Acute hypoxic respiratory failure. 2. Ischemic cardiomyopathy with ejection fraction of 25% to 30%. 3. Three-vessel coronary artery disease. 4. Left bundle branch block. 5. Nonsustained ventricular tachycardia. 6. Hyperlipidemia. 7. Tobacco abuse. 8. History of syncope, previously diagnosed seizure disorder. 9. Newly diagnosed diabetes mellitus with a hemoglobin A1c of 10.0. 10. Mild hyponatremia and hypokalemia. HISTORY OF PRESENT ILLNESS: This patient is a 69-year-old male, who has a history of several prior syncopal episodes, which were diagnosed as seizure disorder and treated with Keppra. The patient presented to the emergency department reporting increasing dyspnea and shortness of breath along with orthopnea. His initial presentation was consistent with pulmonary edema and congestive heart failure with elevated BNP. He was subsequently admitted to the hospital. HOSPITAL COURSE: The patient had initial diuresis and had substantial initial improvement following the first dose of diuresis. Echocardiogram subsequently revealed an ejection fraction of 25% to 30% with grade 1 diastolic dysfunction with epyn-ve-vxyaqzpc mitral regurgitation. He was seen in consultation by Cardiology and then underwent a heart catheterization which revealed three-vessel coronary artery disease with severely impaired ejection fraction. The details revealed ostial lesion of the proximal LAD at 30% proximal LAD, distal subsection with 50% stenosis and mid LAD at 60% stenosis, distal circumflex with 99% stenosis, third obtuse marginal with 60% stenosis and RCA with lesion of the proximal RCA at 50% and distal RCA at 50% as well with an ejection fraction measured at 20%. This was felt to be most appropriately managed with medical management. The patient also had nonsustained ventricular tachycardia noted on his telemetry. He was seen in consultation by Dr. Lyn with the plan for defibrillator and biventricular pacer to be placed prior to this discharge. He was also seen in consultation again by Dr. Ferro primarily with a question regarding his prior episodes and the appropriateness of the seizure diagnosis versus symptomatic ventricular arrhythmia. This was all explained to the patient in detail and the risks associated with the cardiomyopathy and ventricular arrhythmias with the risk of sudden . However, ultimately the patient declined intervention and declined a LifeVest as well. He was up and ambulating in the halls and felt well otherwise and was felt to be appropriate for discharge at that time given his choices. On day of discharge, temperature is 97.6, pulse 77, respirations 14, O2 saturation 94% on room air, BP is 113/77. He is awake and alert. His heart was regular without murmurs. Lungs were clear bilaterally. Abdomen was soft, nontender, and nondistended with positive bowel sounds. Extremities; no cyanosis, clubbing, or edema. The patient was noted to be hyperglycemic. At presentation, he had no history of diabetes, however, hemoglobin A1c was elevated at 10.0. He was initially placed on metformin, but this was subsequently discontinued for the heart catheterization and then resumed prior to discharge. The patient was educated on diabetic diet and follow up. DISPOSITION: The patient is discharged to home. He is to be on a heart healthy, diabetic, low-sodium diet. ACTIVITY: As tolerated. MEDICATIONS: Include, 1. Nitroglycerin 0.4 mg sublingual q.5 minutes p.r.n. 2. Atorvastatin 40 mg at bedtime. 3. Carvedilol 1.5625 one p.o. b.i.d. 4. Lasix 20 mg daily. 5. Metformin 500 mg b.i.d. 6. Aspirin 81 mg daily. 7. Keppra 500 mg b.i.d. FOLLOWUP: The patient is to follow up with the Cardiac Rehab in [place]. He will have followup at the [facility] on 12/01/2019 at 0215 hours. He should follow up with Dr. Coy in 7 days and he can return to the hospital at anytime he has the need to do so. He was strongly encouraged to discontinue smoking. TIME SPENT: Total time in discharge activities was 39 minutes. Job ID: [id number]
--- NOTE | 2019-11-28 03:04 | PQF ---
TEENA CAMPBELL DAVID R MD [id number] CLINICAL DOCUMENTATION CLARIFICATION FORM: POST DISCHARGE Addendum to original discharge summary date: ____ Late entry note date: __ DATE: 11/28/2019 ATTN: Sascha Dhillon Please exercise your independent, professional judgment in responding to the clarification form. Clinical indicators are provided on the bottom of this form for your review Please check appropriate box(s) to clarify if the following diagnosis has been ruled in or ruled out: Acute Hypoxic Respiratory Failure [ ] Ruled in diagnosis [ ] Continue to treat [ ] Resolved [ ] Ruled out diagnosis [ ] Cannot rule out diagnosis [ ] Other diagnosis [ ] Unable to determine In addition, please specify: Present on Admission (POA): [ ] Yes [ ] No [ ] Unable to determine For continuity of documentation, please document condition throughout progress notes and discharge summary. Thank You. CLINICAL INDICATORS - SIGNS / SYMPTOMS / LABS H&P p1 11/23 Dr Alegre presented to [facility] for shortness of breath that awoke him from his sleep, associated with cough, prompting further evaluation. H&P p1 11/23 Dr Alegre The patient was placed on oxygen nasal cannula at a tertiary ER and a chest x-ray suggested bibasilar crackles. H&P p1 11/23 Dr Alegre transferred to [facility] for further evaluation. In ER , the patient was reported to be de saturating to 80s on room air and maintained with oxygen nasal cannula with appropriate oxygenation. H&P p2 11/23 Dr Alegre Vital signs: Pulse 80s to 90s, Oxygen saturation 94% on 2L nasal cannula and respiration 16 to 18 unlabored H&P p3 11/23 Dr Alegre Monitoring for weaning off oxygen nasal cannula for any other causes that may be contributing to resting hypoxia RISK FACTORS H&P p1 1 69-year-old male H&P p2 11/23 Acute Hypoxic Respiratory Failure H&P p2 11/23 Acute Congestive heart failure H&P p2 11/23 Chronic nicotine dependence TREATMENTS Respiratory Panel 11/23 Oxygen 2L via nasal cannula H&P p2 11/23 Placed on telemetry monitoring MAR 11/23 IV Lasix (This form is maintained as a part of the permanent medical record) 2014 [employer]. All Rights Reserved [email or web address] [not provided] MTDD
== END 2019-11-26 17:11 | disposition home or self-care (01) | DRG 286 ==
LOC: ERS 03:12 → 2NO 05:44
PROVIDERS: ADMIT Hospitalist; ATTEND Emergency Medicine
PROC: 4A023N7 Measurement of Cardiac Sampling and Pressure, Left Heart, Percutaneous Approach (ICD-10-PCS; principal; 2019-11-25)
PROC: B2151ZZ Fluoroscopy of Left Heart using Low Osmolar Contrast (ICD-10-PCS; 2019-11-25)
PROC: B2111ZZ Fluoroscopy of Multiple Coronary Arteries using Low Osmolar Contrast (ICD-10-PCS; 2019-11-25)
DX: I50.21 Acute systolic (congestive) heart failure (principal); J96.01 Acute respiratory failure with hypoxia; I47.2 Ventricular tachycardia; I25.5 Ischemic cardiomyopathy; I44.7 Left bundle-branch block, unspecified; G40.909 Epilepsy, unspecified, not intractable, without status epilepticus; E78.00 Pure hypercholesterolemia, unspecified; F17.200 Nicotine dependence, unspecified, uncomplicated; I25.10 Atherosclerotic heart disease of native coronary artery without angina pectoris; Z88.6 Allergy status to analgesic agent; Z79.899 Other long term (current) drug therapy; Z79.82 Long term (current) use of aspirin
CPT/HCPCS: 36415; 36416; 80048; 80061; 83036; 85347; 93306; 93458; 93798; 94760; 99152; C1769; J1644; J1650; J1940; J2001; J2250; J2720; J3010; Q9967

== ENCOUNTER 2019-11-30 17:49 | Emergency (ER) | payer MEDICARE | END 2019-11-30 21:18 | disposition home or self-care (01) | LOC: ERS 17:49 | DX: R07.9 Chest pain, unspecified (principal); E11.9 Type 2 diabetes mellitus without complications; M10.9 Gout, unspecified; I11.0 Hypertensive heart disease with heart failure; I50.9 Heart failure, unspecified; F17.210 Nicotine dependence, cigarettes, uncomplicated | CPT/HCPCS: 36415; 93005 ==

== ENCOUNTER 2020-01-04 17:33 | Inpatient (IN) | payer MEDICARE ==
[2020-01-04 18:31] VITALS: BMI 32.2
[2020-01-04] MEDS ORDERED: Acetaminophen 325 MG TAB PO PRN (18:33)
[2020-01-04] MEDS ORDERED: Ondansetron PF 4 MG/2 ML Vial IVP PRN (18:33)
[2020-01-04] MEDS ORDERED: Ondansetron ODT 4 MG TAB PO PRN (18:33)
[2020-01-04] MEDS ORDERED: Senokot S 8.6-50 MG TAB PO PRN (18:33)
[2020-01-04] MEDS ORDERED: Nitroglycerin 0.4 MG TAB (25 Tab Bottle) SL PRN (18:36)
[2020-01-04 18:57] LABS: #Lymphocytes 0.5 thou/uL (1.20-3.40); #Monocytes 1.2 thou/uL (0.11-0.59); #Neutrophils 10.9 thou/uL (1.40-6.50); %Basophils 0.3 % (0.0-1.0); %Eosinophils 0.2 % (0.0-10.0); %Lymphocytes 3.9 % (21.0-51.0); %Monocytes 9.2 % (0.0-10.0); %Neutrophils 86.4 % (42.0-75.0); Hemoglobin 15.6 g/dL (14.0-18.0); Mean Corpuscular Hemoglobin 28.4 pg (27.0-31.0); Mean Corpuscular Volume 83.3 fL (78.0-98.0); Mean Platelet Volume 8.3 fL (7.4-10.4); Platelet Count 170 thou/uL (130-400); RBC Distribution Width 12.9 % (11.5-14.5); Red Blood Cell (RBC) Count 5.49 mill/uL (4.70-6.10); White Blood Cell (WBC) Count 12.6 thou/uL (4.8-10.8)
[2020-01-04 19:14] LABS: Anion Gap 15 mmol/L (10-20); BUN (Urea Nitrogen) 28 mg/dL (8.4-25.7); Calc. Creatinine Clearance 87 mL/min (70-130); Calcium 9.2 mg/dL (7.8-10.44); Carbon Dioxide 23 mmol/L (23-31); Chloride 97 mmol/L (98-107); Estimated GFR-MDRD 64; Glucose 336 mg/dL (80-115); Potassium 4.4 mmol/L (3.5-5.1); Sodium 131 mmol/L (136-145)
[2020-01-04 20:50] LABS: Bacteria/HPF None Seen HPF (None Seen); Bilirubin Negative (Negative); Blood, Urine Negative (Negative); Clarity Clear (Clear); Glucose, Urine (Dipstick) 200 mg/dL (Negative); Leukocyte Negative Leu/uL (Negative); Nitrite Negative (Negative); Protein, Urine (Dipstick) 10 mg/dL (Neg-Trace); Squamous Epithelial None Seen HPF (0-3); Urobilinogen Normal mg/dL (Less than 2); WBC/HPF 0-3 HPF (0-3)
[2020-01-04] MEDS: Furosemide 20 MG/2 ML VIAL SLOW IVP SCH (21:48)
[2020-01-04] MEDS: Atorvastatin Calcium 40 MG TAB PO SCH (21:48)
[2020-01-04] MEDS: levETIRAcetam 500 MG TAB PO SCH (21:48)
[2020-01-05 01:17] LABS: Troponin I 0.022 ng/mL (< 0.028)
[2020-01-05] MEDS ORDERED: Dextrose 50% Abboject 50 ML SYRINGE IVP PRN (02:29)
[2020-01-05] MEDS ORDERED: Dextrose 5% in Water 1,000 ML IV PRN (02:29)
[2020-01-05] MEDS: Cephalexin 250 MG CAP PO SCH ×4 (03:21→20:50)
[2020-01-05] MEDS: HumaLOG 300 UNITS/3 ML VIAL SC PRN ×4 (03:23→22:08)
[2020-01-05 05:01] LABS: #Lymphocytes 0.9 thou/uL (1.20-3.40); #Monocytes 1.2 thou/uL (0.11-0.59); %Basophils 0.3 % (0.0-1.0); %Eosinophils 0.1 % (0.0-10.0); %Lymphocytes 6.9 % (21.0-51.0); %Neutrophils 83.7 % (42.0-75.0); Mean Corpuscular HGB CONC 32.4 g/dL (32.0-36.0); Mean Corpuscular Hemoglobin 26.9 pg (27.0-31.0); Mean Corpuscular Volume 82.9 fL (78.0-98.0); Platelet Count 160 thou/uL (130-400); Red Blood Cell (RBC) Count 5.21 mill/uL (4.70-6.10); White Blood Cell (WBC) Count 13.1 thou/uL (4.8-10.8)
[2020-01-05 05:26] LABS: Anion Gap 16 mmol/L (10-20); BUN (Urea Nitrogen) 39 mg/dL (8.4-25.7); Calc. Creatinine Clearance 75 mL/min (70-130); Calcium 8.8 mg/dL (7.8-10.44); Carbon Dioxide 23 mmol/L (23-31); Chloride 95 mmol/L (98-107); Estimated GFR-MDRD 53; Glucose 428 mg/dL (80-115); Potassium 4.5 mmol/L (3.5-5.1); Sodium 129 mmol/L (136-145)
--- NOTE | 2020-01-05 05:39 | HP ---
CHIEF COMPLAINT: Chest pain. HISTORY OF PRESENT ILLNESS: A 69-year-old male, with recent pacemaker placement at an outside facility, presented with chest pain at [place] [facility]. Based on the sketchy review of the chart, it appears that pacemaker placed on . Chest pain started this morning, constant. He also had a worsening heart failure like symptoms with dyspnea. He was evaluated at [place] and transferred here for further care. It appears EP has seen him in the ER. He has a new ischemic cardiomyopathy with acute decompensation on the three-vessel coronary artery disease and the left heart catheterization planned and medical management. On my exam, the patient states that his chest pain is still ongoing. Severe shortness of breath. Subjective hard to breathe. He appears well, able to complete his sentences. He is on full Venti-Mask. So complete information is not obtainable. The patient denies any abdominal pain, recent fever, or productive cough. REVIEW OF SYSTEMS: 13-point review of systems is not obtainable completely from him currently in his current state. ALLERGIES: HE IS ALLERGIC TO NSAIDS. MEDICATIONS: He is on aspirin and Keppra. PAST MEDICAL HISTORY: Recent pacemaker placement. SOCIAL HISTORY: He denies any smoking or alcohol use, but he used to smoke and drink heavily in the past. PAST FAMILY HISTORY: Noncontributory. PHYSICAL EXAMINATION: VITAL SIGNS: Vitals are still pending on the floor. GENERAL: He is on full breathing mask, but he is hemodynamically stable. HEENT: Pupils equal, round, and reactive to light. Anicteric. Mucous membranes moist. CARDIOVASCULAR: He has a new pacemaker placed on his left-sided chest. He has swelling associated with the pacer placement. Suture site looks good. No erythema or foul smelling noted around the site. CARDIOVASCULAR: Regular rate and rhythm without murmurs, rubs, or gallops. LUNGS: Clear to auscultation bilaterally without wheezing, rales, or rhonchi. ABDOMEN: Soft, nontender, nondistended. Good bowel sounds. EXTREMITIES: Without any pitting edema. NEURO: No focal deficits. LABORATORY DATA: Labs done in [place] showed D-dimer of 1.71. Lipase was 21. CPK 76. Sodium 133, potassium 4.2, creatinine 0.98, blood glucose 322, calcium 9. LFTs in the normal range. BNP 56.5. Troponin 0.016. His hemoglobin 14.2, WBC 7.3, platelets 171. EKG showed paced rhythm at a rate of 83 beats per minute, atrial captured. Chest x-ray showed cardiomegaly with worsening bilateral vascular congestion. IMPRESSION AND PLAN: This is a 69-year-old male, with recent pacemaker placement, presenting with the following; 1. New ischemic cardiomyopathy with acute decompensation. 2. Acute decompensation with echo evaluation of 25% to 30% EF. 3. Left bundle branch block. 4. He showed a nonsustained ventricular tachycardia on the tele in the [place] ER. 5. History of seizure disorder, on Keppra. 6. Hyperlipidemia. 7. Three-vessel coronary artery disease. Plan for cath soon. The patient is admitted in the tele. Continue his medications including aspirin , Keppra, lisinopril, and statin. Since he has decompensated cardiomyopathy, I am going to hold the Coreg for now and start him on Lasix. Even though his BNP is only 56, chest x-ray is clearly showing some congestion and exam suggestive of acute congestive heart failure. We will give him IV diuretics and reassess in the morning. Consult coding technician as well as roulette dealer. DVT prophylaxis. Renally-dosed Lovenox. Job ID: [id number] MTDD
[2020-01-05] MEDS ORDERED: Carvedilol 3.125 MG TAB PO SCH (08:00)
[2020-01-05] MEDS: Furosemide 20 MG/2 ML VIAL SLOW IVP SCH (08:19)
[2020-01-05] MEDS: Aspirin Chewable 81 MG TAB PO SCH (08:20)
[2020-01-05] MEDS: levETIRAcetam 500 MG TAB PO SCH ×2 (08:20→20:50)
[2020-01-05] MEDS ORDERED: Furosemide 20 MG TAB PO SCH (09:00)
[2020-01-05] MEDS ORDERED: Sodium Chloride 0.9% 250 ML 250 ML IVPB SCH (10:00)
[2020-01-05] MEDS: Lisinopril 2.5 MG TAB PO SCH (11:15)
[2020-01-05] MEDS: metFORMIN 500 MG TAB PO SCH ×2 (11:15→18:03)
--- NOTE | 2020-01-05 12:11 | CON ---
DATE OF CONSULTATION: 01/05/2020 ADDITIONAL REFERRING PHYSICIAN: Yoana James MD. HISTORY OF PRESENT ILLNESS: I am seeing Mr. Torre at our [facility] telemetry floor as an electrophysiology retail sales vitamin consultant. His problems are: 1. Atypical pleuritic chest pain as well as diaphragmatic stim like discomforts, prompting current admission. 2. Status post Bi-V ICD implant with a Medtronic MRI-compatible Bi-V ICD on 01/02/2020. 3. Chronic systolic congestive heart failure with ischemic cardiomyopathy. a. 2D echo from 11/23/2019 shows LVEF of 25% to 30%. b. Left heart catheterization from 11/25/2019 shows 3-vessel coronary artery disease, severely impaired left ventricular systolic function, on medical management. 4. History of syncopal spells. 5. History of nonsustained ventricular tachycardia. 6. Left bundle-branch block. 7. History of COPD, smoking in the past. ALLERGIES: NONSTEROIDAL ANTI-INFLAMMATORY AGENTS. MEDICATIONS AT HOME: Included: 1. Aspirin. 2. Levetiracetam. 3. Nitroglycerin. 4. Lipitor. 5. Carvedilol. 6. Furosemide. 7. Metformin. 8. Lisinopril. 9. Cephalexin. SUBJECTIVE: Mr. Torre underwent an uneventful [facility] He has developed hiccup like sensations as well as some pleuritic appearing discomfort in the chest. He has had some swelling in his neck and radiating to the back of his neck. He had his pacing interrogated, found to be with adequate order. He was started on IV diuretics. This morning, he is feeling somewhat better. On occasion, still has some diaphragmatic stimulation like discomfort. His pleuritic pains are better. REVIEW OF SYSTEMS: Rest of 12-point review of system is unremarkable. PAST MEDICAL HISTORY: As above. SOCIAL HISTORY: The patient is a smoker, trying to cut back. Denies EtOH or drug abuse. [place] FAMILY HISTORY: Not contributory. OBJECTIVE DATA: VITAL SIGNS: Blood pressure is 88/56, heart rate 85, respirations 20, and temperature 97.3 degrees Fahrenheit. GENERAL: This is an alert and oriented man, in no apparent distress. NECK: Supple. Jugular veins not distended. CHEST: Coarse without crackles. HEART: Sounds are regular to rate and rhythm. I do not hear murmur, gallop, or rub. PMI is nonpalpable. Left precordial ICD insertion site with minimal reaction. Mild heme discoloration in the area without significant hematoma. ABDOMEN: Mildly distended. Bowel sounds positive. No hepatosplenomegaly or masses are felt. EXTREMITIES: Lower extremities without clubbing or cyanosis. 1+ edema. NEUROLOGIC: The patient is nonfocal. MUSCULOSKELETAL: Without joint swelling or deformity. SKIN: Without rash. DATABASE: Chest CT from 01/04/2020 shows no pulmonary embolus. Atelectasis in the right lung base. Small pericardial fluid on the right side. No pneumothorax or enlarged lymph nodes in the mediastinum. Review of the CT images, no significant pericardial effusion. Enlarged heart. ICD wire is in adequate position. LABORATORY DATA: White cell count 13.1, hemoglobin 14, and platelet count is 160 following 24 hours. Sodium 129, potassium 4.5, BUN is 39, and creatinine 1.33. Troponin-I 0.022. BNP is on the low at 56 on the . Chest x-ray reveals some right lung consolidation. The ICD interrogation revealing a Medtronic MRI compatible Bi-V ICD, longevity 3.6 years. Lead parameters are adequate sensing 1.9 mV in the atrium and over 20 mV in the right ventricle, impedance is 361, 418 and 247 ohms respectively. No ventricular tachyarrhythmias are seen. No therapies delivered since implant. The EKG checks reveals a sinus rhythm, ventricular pacing, morphology is questionable for LV pacing. Telemetry strips revealed continued ventricular pacing. ASSESSMENT AND PLAN: Mr. Torre is a pleasant 69-year-old man with history of congestive heart failure and ischemic cardiomyopathy, nonsustained ventricular tachycardia, recurrent syncopal spells in the past. He underwent a biventricular implantable cardiac defibrillator implantation on 01/02/2020 without apparent early complications. Now, he is returning after developing atypical chest discomforts including pleuritic discomfort with some radiation to the neck, also some symptoms of diaphragmatic stimulation may be present as well. So far, the workup reveals no pericardial effusion. Adequate positioning of the wires are seen on the reviewed images. Our plan is to have his device re-interrogated and look for diaphragmatic stimulation, also reassess his left ventricular capture threshold. Should that be found in order, he may be able to go home. For now, I am not suspecting any major arrhythmias and looks like his heart failure still felt stable. He has no obvious complication of pericardial effusion. Minor pericardial irritation likely will improve. We will continue also prophylactic antibiotic therapy as initiated for at least a week. I gave instructions for the Medtronic biotechnician to evaluate him. Thank you again for letting me to participate in the care of this patient. Job ID: [id number]
--- NOTE | 2020-01-05 16:26 | EKG ---
Test Reason : Blood Pressure : / mmHG Vent. Rate : 083 BPM Atrial Rate : 083 BPM P-R Int : 098 ms QRS Dur : 162 ms QT Int : 440 ms P-R-T Axes : 053 035 057 degrees QTc Int : 517 ms Paced rhythm Abnormal ECG When compared with ECG of 30-NOV-2019 20:01, Electronic demand pacing is now Present Premature ventricular complexes are now Present Abberant conduction is no longer Present Left bundle branch block is no longer Present Confirmed by DR. Shayna ZARATE ([id number]) on 01/05/2020 4:26:37 PM Referred By: STEFFANIE Confirmed By:DR. Shayna ZARATE
--- NOTE | 2020-01-05 20:32 | CON ---
DATE OF CONSULTATION: HISTORY OF PRESENT ILLNESS: Wes Torre is a 69-year-old white male, who I initially evaluated last month. He had a previous history of seizure disorder made in January 2019. He was apparently throwing hay addis, blacked out and found himself on the ground. He was then diagnosed as having a seizure disorder and was placed on Keppra. He also had another episode where he was walking upstairs to go to the bathroom and again found himself on the floor. He previously had never undergone any cardiac evaluation. He then developed increasing shortness of breath and was transferred to [facility] and then was sent here for further evaluation. He would desaturate on room air into the 80s in the emergency room. He is given Lasix 40 mg IV, lisinopril 10 p.o., and then another 40 of Lasix IV. His breathing significantly improved. In January 2019, his EKG was normal. However, on the admission in November 2019, he had a left bundle-branch block. Echocardiogram revealed ejection fraction of 25% to 30%, grade 1/3 diastolic dysfunction, dilated left ventricle, mild left atrial enlargement, mitral annular calcification, [id number] mitral regurgitation, aortic valvular sclerosis, mild tricuspid regurgitation. He underwent cardiac catheterization, which revealed severe global hypokinesis with ejection fraction of 25% to 30%. There was 30% proximal and 60% mid LAD. The circumflex had a distal 99% lesion, however, this was approximately 1 mm vessel and filled retrograde from the left. There was a 60% third obtuse marginal lesion. The right coronary artery had 50% mid lesion, 50% distal lesion. It was felt best to treat him medically for his 3-vessel coronary artery disease. During his time in the hospital, he had episodes of wide-complex tachycardia. With his previous history of syncope (questionable seizures), wide complex tachycardia and new left bundle-branch block, Electrophysiology was consulted. Dr. Lyn recommended that a biventricular defibrillator be placed, however, the patient declined. He also declined LifeVest. Mr. Torre since decided to proceed with biventricular ICD placement and this was performed on 01/02/2020, [facility] He then began to notice some pleuritic-type chest pain in the epigastric area that seemed to radiate to his shoulder. He also had a hiccup-type sensation, which probably was diaphragmatic stimulation. He therefore is admitted for further evaluation. He has undergone chest CT, which revealed no CT evidence of pulmonary embolism. There was no pericardial effusion. There was some right pleural fluid with compression atelectasis. At the present time, he states that his breathing has improved and with a deep breath, has only minimal discomfort. PAST MEDICAL HISTORY: Diabetes, hypercholesterolemia; 3-vessel coronary artery disease, for medical therapy; probably nonischemic cardiomyopathy with ejection fraction 25% to 30%, left bundle-branch block, wide-complex tachycardia. MEDICATIONS: 1. Aspirin 81 daily. 2. Atorvastatin 40 at bedtime. 3. Carvedilol 1.5625 b.i.d. 4. Keflex 250 q.6 hours. 5. Furosemide 20 mg q.a.m. 6. Keppra 500 mg b.i.d. 7. Lisinopril 2.5 mg daily. 8. Metformin 500 mg b.i.d. 9. Nitroglycerin p.r.n. ALLERGIES: NSAIDS. SOCIAL HISTORY: Smokes 1 to 1-1/2 packs per day. He does not drink alcohol. FAMILY HISTORY: Mother had bypass surgery. Father of "heart wearing out. " REVIEW OF SYSTEMS: 10-point review of systems is otherwise unremarkable. PAST SURGICAL HISTORY: Right knee surgery and biventricular ICD placement. PHYSICAL EXAMINATION: VITAL SIGNS: Blood pressure 90/52, pulse 81. HEENT: PERRL. NECK: Supple. CHEST: Reveals distant breath sounds. CARDIOVASCULAR: S1 and S2 normal without any S3, S4, or murmurs. ABDOMEN: Normal bowel sounds without tenderness or organomegaly. EXTREMITIES: Reveal no clubbing, cyanosis, or edema. NEUROLOGICAL: Grossly intact. SKIN: Warm and dry. LABORATORY DATA: EKG reveals ventricular pacing. Hemoglobin 14.0, hematocrit 43.2, white count 06202, platelets 160,000. D-dimer 1.71. Sodium 129, potassium 4.5, chloride 95, carbon dioxide 23, BUN 39, creatinine 1.33. Troponin I is normal x3. TSH is normal. IMPRESSION: 1. Pleuritic chest pain, probably due to pericardial irritation from the screw in leads. This has improved. 2. Left bundle-branch block. 3. Three-vessel coronary artery disease, for medical therapy. 4. Severe probably nonischemic cardiomyopathy with ejection fraction of 25% to 30%. 5. Status post biventricular ICD placement. 6. Episodes of wide-complex tachycardia. 7. History of syncope, questionable seizures. 8. Smoker. 9. Hypercholesterolemia. 10. Diabetes. 11. Positive family history. PLAN: Mr. Torre has had improvement in his current symptoms. Fasting lipid profile will be obtained in the morning. He may be discharged whenever there is approval from Electrophysiology. Job ID: [id number] MTDD
[2020-01-05] MEDS: Atorvastatin Calcium 40 MG TAB PO SCH (20:50)
[2020-01-05] MEDS ORDERED: traMADol HCl 50 MG TAB PO PRN (21:52)
[2020-01-05] MEDS ORDERED: Melatonin 3 MG TAB PO PRN (21:53)
[2020-01-05] MEDS ORDERED: Melatonin 3 MG TAB PO SCH (22:00)
[2020-01-06] MEDS: Cephalexin 250 MG CAP PO SCH ×4 (05:12→20:36)
[2020-01-06 05:18] LABS: Cardiac Risk 3.7 (Less than 4.5)
[2020-01-06] MEDS: Lisinopril 2.5 MG TAB PO SCH (08:19)
[2020-01-06] MEDS: metFORMIN 500 MG TAB PO SCH ×2 (08:19→17:28)
[2020-01-06] MEDS: Aspirin Chewable 81 MG TAB PO SCH (08:22)
[2020-01-06] MEDS: levETIRAcetam 500 MG TAB PO SCH ×2 (08:22→20:36)
[2020-01-06] MEDS ORDERED: Furosemide 20 MG TAB PO SCH (09:00)
[2020-01-06] MEDS ORDERED: Amiodarone 200 MG TAB PO SCH (10:30)
[2020-01-06 11:12] LABS: ALT (SGPT) 17 U/L (8-55); AST (SGOT) 19 U/L (5-34); Albumin 3.4 g/dL (3.4-4.8); Alkaline Phosphatase 81 U/L (40-110); Bilirubin, Direct 0.6 mg/dL (0.1-0.3); Bilirubin, Total 1.1 mg/dL (0.2-1.2); Protein, Total 6.3 g/dL (5.8-8.1)
[2020-01-06] MEDS: HumaLOG 300 UNITS/3 ML VIAL SC PRN ×3 (12:33→20:40)
--- NOTE | 2020-01-06 12:46 | PDOC.EP ---
- Subjective Date: 01/06/20 Time: 08:00 Interval History: follow up for ICD and arrhythmia management. - Review of Systems Constitutional: denies: chills, fever, malaise, sweats, weakness, other Respiratory: denies: cough, dry, hemoptysis, pleuritic pain, shortness of breath , SOB with excertion, sputum, wheezing, other Cardiology: denies: chest pain, edema, heart racing, light headedness, paroxysmal noc. dyspnea, orthopnea, palpitations, passing out, pleuritic pain, pressure, swelling, other Gastrointestinal: denies: abdominal pain, constipation, diarrhea, hematochezia, melena, nausea, vomitting, other Musculoskeletal: denies: unstable gait, falls, neck pain - Objective Allergies/Adverse Reactions: Allergies Allergy/AdvReac Type Severity Reaction Status Date / Time NSAIDS (Non-Steroidal Allergy Verified 01/04/20 21:34 Anti-Inflamma Current Medications Acetaminophen (Tylenol) 650 mg PO Q4H PRN PRN Reason: Headache/Fever/Mild Pain (1-3) Amiodarone HCl (Cordarone) 400 mg PO BID [facility] Aspirin (Aspirin Chewable) 81 mg PO DAILY [facility] Last Admin: 01/06/20 08:22 Dose: 81 mg Atorvastatin Calcium (Lipitor) 40 mg PO HS [facility] Last Admin: 01/05/20 20:50 Dose: 40 mg Cephalexin (Keflex) 500 mg PO 0300,0900,1500,2100 [facility] Last Admin: 01/06/20 08:18 Dose: 500 mg Dextrose/Water (Dextrose 50%) 25 gm IVP PRN PRN PRN Reason: HYPOGLYCEMIA PROTOCOL Furosemide (Lasix) 20 mg PO DAILY [facility] Last Admin: 01/06/20 08:23 Dose: 20 mg Glucagon (Glucagon) 1 mg IM PRN PRN PRN Reason: HYPOGLYCEMIA PROTOCOL Dextrose/Water (D5w) 1,000 mls @ 0 mls/hr IV INF PRN PRN Reason: HYPOGLYCEMIA PROTOCOL Insulin Human Lispro (Humalog) 0 units SC .MODERATE SLIDING SC PRN; Protocol PRN Reason: MODERATE SLIDING SCALE Last Admin: 01/05/20 18:02 Dose: 6 unit Insulin Human Lispro (Humalog) 0 units SC .BEDTIME SLIDING SC PRN; Protocol PRN Reason: BEDTIME SLIDING SCALE Last Admin: 01/05/20 22:08 Dose: 3 unit Levetiracetam (Keppra) 500 mg PO BID [facility] Last Admin: 01/06/20 08:22 Dose: 500 mg Lisinopril (Zestril) 2.5 mg PO DAILY [facility] Last Admin: 01/06/20 08:19 Dose: 2.5 mg Melatonin (Melatonin) 3 mg PO HS PRN PRN Reason: Insomnia Metformin HCl (Glucophage) 500 mg PO BID[facility] Last Admin: 01/06/20 08:19 Dose: 500 mg Nitroglycerin (Nitrostat) 0.4 mg SL Q5MIN PRN PRN Reason: Chest Pain Ondansetron HCl (Zofran Odt) 4 mg PO Q6H PRN PRN Reason: Nausea/Vomiting Ondansetron HCl (Zofran) 4 mg IVP Q6H PRN PRN Reason: Nausea/Vomiting Senna/Docusate Sodium (Senokot S) 2 tab PO BID PRN PRN Reason: Constipation Sodium Chloride (Flush - Normal Saline) 10 ml IVF Q12HR [facility] Last Admin: 01/06/20 08:23 Dose: 10 ml Sodium Chloride (Flush - Normal Saline) 10 ml IVF PRN PRN PRN Reason: Saline Flush Tramadol HCl (Ultram) 50 mg PO Q4H PRN PRN Reason: Moderate Pain (4-6) Last Admin: 01/05/20 22:05 Dose: 50 mg Vital Signs & Weight: Vital Signs Temp Pulse Resp BP BP Pulse Ox 01/06/20 12:00 98.5 F 75 18 94/51 L 93 L 01/06/20 11:11 94/51 L 01/06/20 09:02 92 L 01/06/20 08:20 107/53 L 92 L 01/06/20 08:19 57 L 01/06/20 07:48 98.4 F 98 18 119/58 L 90 L 01/06/20 04:00 98 F 72 16 103/62 92 L Weight 218 lb 8 oz I/O: I/O 01/05/20 01/06/20 01/07/20 06:59 06:59 06:59 Intake Total 240 920 550 Output Total 780 575 Balance 240 140 -25 - Quality Measures Condition: Atrial Fibrillation/Flutter (hx or current) - Physical Exam General: alert & oriented x3, appears well, no apparent distress, speech clear, affect appropriate HEENT: mucus membranes moist, normocephaly Neck: supple neck, midline trachea, no JVD/HJR, no masses, no bruit, no lymphadenopathy, no thromegaly Cardiology: irregularly irregular Lungs: clear to auscultation, normal breath sounds Neurology: cranial nerve 2-12 intact, grossly intact, coordination normal Abdomen: unremarkable, active bowel sounds, HJR negative Extremities: dry, strong pulses, warm Skin: device site stable w/o swelling. negative: bruising, drainage, erosion - Chadsvasc Risk factors Congestive heart failure: 1 Age 65-74: 1 Diabetes mellitus: 1 Vascular disease: 1 Risk Score: 4 - Labs Result Diagrams: 01/05/20 04:20 01/05/20 04:20 - EKG Interpretation EKG Method: Telemetry EKG shows: Atrial fibrillation - Device Device: biventricular, defibrillator Device Result: Medtronic - Assessment/Plan Assessment/Plan: 1. Atypical pleuritic chest pain as well as diaphragmatic stim like discomforts, prompting current admission. 2. Status post Bi-V ICD implant with a Medtronic MRI-compatible Bi-V ICD on 01/02/2020. 3. Chronic systolic congestive heart failure with ischemic cardiomyopathy. a. 2D echo from 11/23/2019 shows LVEF of 25% to 30%. b. Left heart catheterization from 11/25/2019 shows 3-vessel coronary artery disease, severely impaired left ventricular systolic function, on medical management. 4. History of syncopal spells. 5. History of nonsustained ventricular tachycardia. 6. Left bundle-branch block. 7. History of COPD, smoking in the past. 8. Atrial fibrillation - newly diagnosed 01/06/2020 - CHADS2-VASC score of 4, not on OAC currently although it is indicated. - started on amiodarone loading 01/06/2020
--- NOTE | 2020-01-06 16:36 | PDOC.HOSPP ---
- Subjective Encounter Date: 01/06/20 Encounter Time: 12:45 Subjective: sitting in the chair, afib, started on amio. looks much better, denies any chest /epigas discomfort. - Objective Vital Signs & Weight: Vital Signs (12 hours) Temp Pulse Resp BP BP Pulse Ox 01/06/20 15:18 97.8 F 14 101/56 L 92 L 01/06/20 12:30 101/57 L 01/06/20 12:00 98.5 F 75 18 94/51 L 93 L 01/06/20 11:11 94/51 L 01/06/20 09:02 92 L 01/06/20 08:20 107/53 L 92 L 01/06/20 08:19 57 L 01/06/20 07:48 98.4 F 98 18 119/58 L 90 L Weight Weight 218 lb 8 oz I&O: 01/05/20 01/06/20 01/07/20 06:59 06:59 06:59 Intake Total 240 920 670 Output Total 780 575 Balance 240 140 95 Result Diagrams: 01/05/20 04:20 01/05/20 04:20 Additional Labs: Accuchecks 01/06/20 01/06/20 01/05/20 11:10 06:29 20:52 POC Glucose 269 H 216 H 279 H 01/05/20 16:44 POC Glucose 252 H Hospitalist ROS - Medication Medications: Active Medications Generic Name Dose Route Start Last Admin Trade Name Freq PRN Reason Stop Dose Admin Aspirin 81 mg 01/05/20 09:00 01/06/20 08:22 Aspirin Chewable PO 81 mg DAILY [facility] Administration Atorvastatin Calcium 40 mg 01/04/20 21:00 01/05/20 20:50 Lipitor PO 40 mg HS [facility] Administration Cephalexin 500 mg 01/05/20 03:00 01/06/20 15:29 Keflex PO 500 mg 0300,0900,1500,2100 [facility] Administration Furosemide 20 mg 01/06/20 09:00 01/06/20 08:23 Lasix PO 20 mg DAILY [facility] Administration Insulin Human Lispro 0 units 01/05/20 02:29 01/06/20 12:33 Humalog SC 6 unit .MODERATE SLIDING SC PRN Administration MODERATE SLIDING SCALE Protocol Insulin Human Lispro 0 units 01/05/20 02:01/05/20 22:08 Humalog SC 3 unit .BEDTIME SLIDING SC PRN Administration BEDTIME SLIDING SCALE Protocol Levetiracetam 500 mg 01/04/20 21:00 01/06/20 08:22 Keppra PO 500 mg BID [facility] Administration Lisinopril 2.5 mg 01/05/20 09:00 01/06/20 08:19 Zestril PO 2.5 mg DAILY [facility] Administration Metformin HCl 500 mg 01/05/20 08:00 01/06/20 08:19 Glucophage PO 500 mg BID-WM [facility] Administration Sodium Chloride 10 ml 01/05/20 21:00 01/06/20 08:23 Flush - Normal Saline IVF 10 ml Q12HR [facility] Administration Tramadol HCl 50 mg 01/05/20 21:52 01/05/20 22:05 Ultram PO 50 mg Q4H PRN Administration Moderate Pain (4-6) - Exam General Appearance: NAD, awake alert Eye: PERRL ENT: normocephalic atraumatic Neck: supple Heart: irregular, murmur present Respiratory: CTAB, no wheezes, no rales, no ronchi, normal chest expansion, no tachypnea Gastrointestinal: soft, normal bowel sounds Neurological: no focal deficits Hosp A/P - Plan ischemic CMy with EF of 30%, s/p ICD placement on 01/02 AFib LBBB NSVT Wide complex tachy prior to ICD placement Hx of ? seizure s/p bvICD on [facility] at [facility] DM2 on metformin --amiodar started today --His BP is better lately - cw with his keflex, lasix and lisinopril low doses. dispo - pt lives alone and his family nearby.
--- NOTE | 2020-01-06 17:03 | EKG ---
Test Reason : Blood Pressure : / mmHG Vent. Rate : 080 BPM Atrial Rate : 080 BPM P-R Int : 106 ms QRS Dur : 182 ms QT Int : 440 ms P-R-T Axes : 031 -25 072 degrees QTc Int : 507 ms Electronic ventricular pacemaker When compared with ECG of 05-JAN-2020 00:39, Previous ECG has undetermined rhythm, needs review Confirmed by DR. Shayna ZARATE ([id number]) on 01/06/2020 5:03:12 PM Referred By: [facility] Confirmed By:DR. Shayna ZARATE
[2020-01-06] MEDS: Rivaroxaban 10 MG TAB PO SCH (17:28)
[2020-01-06] MEDS: Atorvastatin Calcium 40 MG TAB PO SCH (20:36)
[2020-01-06] MEDS: Amiodarone 200 MG TAB PO SCH (20:36)
[2020-01-07] MEDS: Cephalexin 250 MG CAP PO SCH ×4 (03:56→22:23)
[2020-01-07] MEDS: HumaLOG 300 UNITS/3 ML VIAL SC PRN ×4 (06:37→22:46)
[2020-01-07 08:10] LABS: #Monocytes 0.7 thou/uL (0.11-0.59); #Neutrophils 4.8 thou/uL (1.40-6.50); %Basophils 0.1 % (0.0-1.0); %Eosinophils 0.6 % (0.0-10.0); %Lymphocytes 14.6 % (21.0-51.0); %Monocytes 11.1 % (0.0-10.0); %Neutrophils 73.7 % (42.0-75.0); Hemoglobin 12.9 g/dL (14.0-18.0); Mean Corpuscular HGB CONC 32.9 g/dL (32.0-36.0); Mean Corpuscular Hemoglobin 27.9 pg (27.0-31.0); Mean Corpuscular Volume 84.8 fL (78.0-98.0); Mean Platelet Volume 8.7 fL (7.4-10.4); Platelet Count 162 thou/uL (130-400); RBC Distribution Width 12.9 % (11.5-14.5); Red Blood Cell (RBC) Count 4.64 mill/uL (4.70-6.10); White Blood Cell (WBC) Count 6.5 thou/uL (4.8-10.8)
[2020-01-07] MEDS ORDERED: Furosemide 20 MG TAB PO SCH (09:00)
[2020-01-07] MEDS: metFORMIN 500 MG TAB PO SCH ×2 (09:19→17:55)
[2020-01-07] MEDS: Amiodarone 200 MG TAB PO SCH ×2 (09:20→22:18)
[2020-01-07] MEDS: Aspirin Chewable 81 MG TAB PO SCH (09:20)
[2020-01-07] MEDS: levETIRAcetam 500 MG TAB PO SCH ×2 (09:22→22:18)
[2020-01-07] MEDS: Lisinopril 2.5 MG TAB PO SCH (09:47)
--- NOTE | 2020-01-07 10:50 | PDOC.EP ---
- Subjective Date: 01/07/20 Time: 08:00 Interval History: follow up for ICD and arrhythmia management. - Review of Systems Constitutional: reports: other. denies: chills, fever, malaise, sweats, weakness Respiratory: denies: cough, dry, hemoptysis, pleuritic pain, shortness of breath Cardiology: denies: chest pain, edema, heart racing, light headedness, palpitations Gastrointestinal: denies: abdominal pain, constipation, diarrhea - Objective Allergies/Adverse Reactions: Allergies Allergy/AdvReac Type Severity Reaction Status Date / Time NSAIDS (Non-Steroidal Allergy Verified 01/04/20 21:34 Anti-Inflamma Current Medications Acetaminophen (Tylenol) 650 mg PO Q4H PRN PRN Reason: Headache/Fever/Mild Pain (1-3) Amiodarone HCl (Cordarone) 400 mg PO BID [facility] Last Admin: 01/07/20 09:20 Dose: 400 mg Aspirin (Aspirin Chewable) 81 mg PO DAILY [facility] Last Admin: 01/07/20 09:20 Dose: 81 mg Atorvastatin Calcium (Lipitor) 40 mg PO HS [facility] Last Admin: 01/06/20 20:36 Dose: 40 mg Cephalexin (Keflex) 500 mg PO 0300,0900,1500,2100 [facility] Last Admin: 01/07/20 09:20 Dose: 500 mg Dextrose/Water (Dextrose 50%) 25 gm IVP PRN PRN PRN Reason: HYPOGLYCEMIA PROTOCOL Furosemide (Lasix) 20 mg PO DAILY [facility] Last Admin: 01/07/20 09:22 Dose: Not Given Glucagon (Glucagon) 1 mg IM PRN PRN PRN Reason: HYPOGLYCEMIA PROTOCOL Dextrose/Water (D5w) 1,000 mls @ 0 mls/hr IV INF PRN PRN Reason: HYPOGLYCEMIA PROTOCOL Insulin Human Lispro (Humalog) 0 units SC .MODERATE SLIDING SC PRN; Protocol PRN Reason: MODERATE SLIDING SCALE Last Admin: 01/07/20 06:37 Dose: 4 unit Insulin Human Lispro (Humalog) 0 units SC .BEDTIME SLIDING SC PRN; Protocol PRN Reason: BEDTIME SLIDING SCALE Last Admin: 01/06/20 20:40 Dose: 2 unit Levetiracetam (Keppra) 500 mg PO BID [facility] Last Admin: 01/07/20 09:22 Dose: 500 mg Lisinopril (Zestril) 2.5 mg PO DAILY [facility] Last Admin: 01/07/20 09:47 Dose: Not Given Melatonin (Melatonin) 3 mg PO HS PRN PRN Reason: Insomnia Metformin HCl (Glucophage) 500 mg PO BID-[facility] Last Admin: 01/07/20 09:19 Dose: 500 mg Nitroglycerin (Nitrostat) 0.4 mg SL Q5MIN PRN PRN Reason: Chest Pain Ondansetron HCl (Zofran Odt) 4 mg PO Q6H PRN PRN Reason: Nausea/Vomiting Ondansetron HCl (Zofran) 4 mg IVP Q6H PRN PRN Reason: Nausea/Vomiting Rivaroxaban (Xarelto) 20 mg PO 1800 [facility] Last Admin: 01/06/20 17:28 Dose: 20 mg Senna/Docusate Sodium (Senokot S) 2 tab PO BID PRN PRN Reason: Constipation Sodium Chloride (Flush - Normal Saline) 10 ml IVF Q12HR [facility] Last Admin: 01/07/20 09:18 Dose: 10 ml Sodium Chloride (Flush - Normal Saline) 10 ml IVF PRN PRN PRN Reason: Saline Flush Tramadol HCl (Ultram) 50 mg PO Q4H PRN PRN Reason: Moderate Pain (4-6) Last Admin: 01/05/20 22:05 Dose: 50 mg Vital Signs & Weight: Vital Signs Temp Pulse Resp BP BP BP Pulse Ox 01/07/20 09:47 71 108/62 01/07/20 07:38 98.2 F 70 15 97/54 L 95 01/07/20 04:00 97.8 F 70 18 101/59 L 92 L 01/07/20 00:00 97.8 F 75 18 101/59 L 92 L Weight 218 lb 8 oz I/O: I/O 01/06/20 01/07/20 01/08/20 06:59 06:59 06:59 Intake Total 920 870 Output Total 780 675 Balance 140 195 - Quality Measures Condition: Atrial Fibrillation/Flutter (hx or current) CV meds: Xarelto: Yes - Physical Exam General: alert & oriented x3, appears well, no apparent distress, speech clear, affect appropriate HEENT: mucus membranes moist, normocephaly, EOMI Neck: supple neck, midline trachea, no JVD/HJR Cardiology: regular rate and rhythm, no murmur, PMI nondisplaced Lungs: clear to auscultation, normal breath sounds, no wheeze, rales, rhonchi Neurology: cranial nerve 2-12 intact, grossly intact, sensory function intact Skin: device site stable w/o swelling, bruising, left sided device. negative: drainage, erosion - Labs Result Diagrams: 01/07/20 07:45 01/05/20 04:20 - Assessment/Plan Assessment/Plan: 1. Atypical pleuritic chest pain as well as diaphragmatic stim like discomforts, prompting current admission. 2. Status post Bi-V ICD implant with a Medtronic MRI-compatible Bi-V ICD on 01/02/2020. 3. Chronic systolic congestive heart failure with ischemic cardiomyopathy. a. 2D echo from 11/23/2019 shows LVEF of 25% to 30%. b. Left heart catheterization from 11/25/2019 shows 3-vessel coronary artery disease, severely impaired left ventricular systolic function, on medical management. 4. History of syncopal spells. 5. History of nonsustained ventricular tachycardia. 6. Left bundle-branch block. 7. History of COPD, smoking in the past. 8. Atrial fibrillation - newly diagnosed 01/06/2020 - CHADS2-VASC score of 4, started xarelto 01/06 PM - started on amiodarone loading 01/06/2020. - converted to SR 0900 on 01/06. now demand AP, [employer] pacing. 9. Amiodarone therapy - CXR 01/04 - TSH and LFTs WNL 01/05 Continue amiodarone loading. has maintained SR overnight. Continue xarelto. Continue Keflef s/p ICD implant last week.
--- NOTE | 2020-01-07 12:33 | EKG ---
Test Reason : Blood Pressure : / mmHG Vent. Rate : 074 BPM Atrial Rate : 074 BPM P-R Int : 102 ms QRS Dur : 192 ms QT Int : 484 ms P-R-T Axes : 027 -27 076 degrees QTc Int : 537 ms Electronic ventricular pacemaker When compared with ECG of 06-JAN-2020 08:59, Vent. rate has decreased BY [address] Shayna ZARATE ([id number]) on 01/07/2020 12:32:29 PM Referred By: [facility] Confirmed By:DR. Shayna ZARATE
--- NOTE | 2020-01-07 13:59 | PDOC.HOSPP ---
- Subjective Encounter Date: 01/07/20 Encounter Time: 11:50 Subjective: pt is stable, no c/o of sob, cp or dizziness, BP ont he low end. given amio this am. and coreg on hold. his BP on the low side. - Objective Vital Signs & Weight: Vital Signs (12 hours) Temp Pulse Resp BP BP BP Pulse Ox 01/07/20 11:44 98.4 F 113 H 16 96/67 95 01/07/20 09:47 71 108/62 01/07/20 07:38 98.2 F 70 15 97/54 L 95 01/07/20 04:00 97.8 F 70 18 101/59 L 92 L Weight Weight 218 lb 8 oz I&O: 01/06/20 01/07/20 01/08/20 06:59 06:59 06:59 Intake Total 920 870 Output Total 780 675 Balance 140 195 Result Diagrams: 01/07/20 07:45 01/05/20 04:20 Additional Labs: Accuchecks 01/07/20 01/07/20 01/06/20 10:51 05:25 20:29 POC Glucose 213 H 211 H 205 H 01/06/20 17:02 POC Glucose 256 H Hospitalist ROS - Medication Medications: Active Medications Generic Name Dose Route Start Last Admin Trade Name Freq PRN Reason Stop Dose Admin Amiodarone HCl 400 mg 01/06/20 21:00 01/07/20 09:20 Cordarone PO 400 mg BID [facility] Administration Aspirin 81 mg 01/05/20 09:00 01/07/20 09:20 Aspirin Chewable PO 81 mg DAILY [facility] Administration Atorvastatin Calcium 40 mg 01/04/20 21:00 01/06/20 20:36 Lipitor PO 40 mg HS [facility] Administration Cephalexin 500 mg 01/05/20 03:00 01/07/20 09:20 Keflex PO 500 mg 0300,0900,1500,2100 [facility] Administration Insulin Human Lispro 0 units 01/05/20 02:29 01/07/20 12:06 Humalog SC 4 unit .MODERATE SLIDING SC PRN Administration MODERATE SLIDING SCALE Protocol Insulin Human Lispro 0 units 01/05/20 02:29 01/06/20 20:40 Humalog SC 2 unit .BEDTIME SLIDING SC PRN Administration BEDTIME SLIDING SCALE Protocol Levetiracetam 500 mg 01/04/20 21:00 01/07/20 09:22 Keppra PO 500 mg BID [facility] Administration Lisinopril 2.5 mg 01/05/20 09:00 01/07/20 09:47 Zestril PO Not Given DAILY [facility] Metformin HCl 500 mg 01/05/20 08:00 01/07/20 09:19 Glucophage PO 500 mg BID-WM [facility] Administration Rivaroxaban 20 mg 01/06/20 18:00 01/06/20 17:28 Xarelto PO 20 mg 1800 [facility] Administration Sodium Chloride 10 ml 01/05/20 21:00 01/07/20 09:18 Flush - Normal Saline IVF 10 ml Q12HR [facility] Administration Tramadol HCl 50 mg 01/05/20 21:52 01/05/20 22:05 Ultram PO 50 mg Q4H PRN Administration Moderate Pain (4-6) - Exam Eye: PERRL ENT: normocephalic atraumatic Neck: supple Heart: RRR Respiratory: CTAB Gastrointestinal: normal bowel sounds Extremities: no cyanosis Hosp A/P - Plan ischemic CMy with EF of 30%, s/p ICD placement on 01/02 AFib LBBB NSVT Wide complex tachy prior to ICD placement Hx of ? seizure s/p bvICD on st at [facility] DM2 on metformin --amiodar started today --His BP is better lately - cw with his keflex, lasix and lisinopril low doses. dispo - pt lives alone and his family nearby. Low normal BP --reduce coreg dose, hold 2.5mg lisinopril until BP improves -started amio -back in SR with brief afib episode -TSH, LFT are in nl range -plan for dc in am, if BP improves and OK w.. EP.
[2020-01-07] MEDS ORDERED: Lisinopril 2.5 MG TAB PO SCH (14:00)
[2020-01-07] MEDS: Rivaroxaban 10 MG TAB PO SCH (17:55)
[2020-01-07] MEDS: Atorvastatin Calcium 40 MG TAB PO SCH (22:18)
[2020-01-08] MEDS: Cephalexin 250 MG CAP PO SCH ×3 (03:18→15:53)
[2020-01-08] MEDS: HumaLOG 300 UNITS/3 ML VIAL SC PRN ×2 (06:29→11:33)
[2020-01-08] MEDS: Amiodarone 200 MG TAB PO SCH (08:17)
[2020-01-08] MEDS: metFORMIN 500 MG TAB PO SCH (08:17)
[2020-01-08] MEDS: Aspirin Chewable 81 MG TAB PO SCH (08:17)
[2020-01-08] MEDS: levETIRAcetam 500 MG TAB PO SCH (08:19)
[2020-01-08] MEDS ORDERED: Lisinopril 2.5 MG TAB PO SCH (09:00)
--- NOTE | 2020-01-08 14:00 | PDOC.EP ---
- Subjective Date: 01/08/20 Time: 09:00 Interval History: follow up for ICD and arrhythmia management. No cardiac concerns or complaints today. Feels well. - Review of Systems Constitutional: denies: chills, fever, malaise, sweats, weakness, other Respiratory: denies: cough, dry, hemoptysis, pleuritic pain, shortness of breath , SOB with excertion, sputum, wheezing, other Cardiology: denies: chest pain, edema, heart racing, light headedness, paroxysmal noc. dyspnea, orthopnea, palpitations, passing out, pleuritic pain, pressure, swelling, other - Objective Allergies/Adverse Reactions: Allergies Allergy/AdvReac Type Severity Reaction Status Date / Time NSAIDS (Non-Steroidal Allergy Verified 01/04/20 21:34 Anti-Inflamma Current Medications Acetaminophen (Tylenol) 650 mg PO Q4H PRN PRN Reason: Headache/Fever/Mild Pain (1-3) Amiodarone HCl (Cordarone) 400 mg PO BID [facility] Last Admin: 01/08/20 08:17 Dose: 400 mg Aspirin (Aspirin Chewable) 81 mg PO DAILY [facility] Last Admin: 01/08/20 08:17 Dose: 81 mg Atorvastatin Calcium (Lipitor) 40 mg PO HS [facility] Last Admin: 01/07/20 22:18 Dose: 40 mg Cephalexin (Keflex) 500 mg PO 0300,0900,1500,2100 [facility] Last Admin: 01/08/20 08:19 Dose: 500 mg Dextrose/Water (Dextrose 50%) 25 gm IVP PRN PRN PRN Reason: HYPOGLYCEMIA PROTOCOL Glucagon (Glucagon) 1 mg IM PRN PRN PRN Reason: HYPOGLYCEMIA PROTOCOL Dextrose/Water (D5w) 1,000 mls @ 0 mls/hr IV INF PRN PRN Reason: HYPOGLYCEMIA PROTOCOL Insulin Human Lispro (Humalog) 0 units SC .MODERATE SLIDING SC PRN; Protocol PRN Reason: MODERATE SLIDING SCALE Last Admin: 01/08/20 11:33 Dose: 4 unit Insulin Human Lispro (Humalog) 0 units SC .BEDTIME SLIDING SC PRN; Protocol PRN Reason: BEDTIME SLIDING SCALE Last Admin: 01/07/20 22:46 Dose: 5 unit Levetiracetam (Keppra) 500 mg PO BID [facility] Last Admin: 01/08/20 08:19 Dose: 500 mg Lisinopril (Zestril) 2.5 mg PO DAILY [facility] Last Admin: 01/08/20 08:18 Dose: 2.5 mg Melatonin (Melatonin) 3 mg PO HS PRN PRN Reason: Insomnia Metformin HCl (Glucophage) 500 mg PO BID-WM [facility] Last Admin: 01/08/20 08:17 Dose: 500 mg Nitroglycerin (Nitrostat) 0.4 mg SL Q5MIN PRN PRN Reason: Chest Pain Ondansetron HCl (Zofran Odt) 4 mg PO Q6H PRN PRN Reason: Nausea/Vomiting Ondansetron HCl (Zofran) 4 mg IVP Q6H PRN PRN Reason: Nausea/Vomiting Rivaroxaban (Xarelto) 20 mg PO 1800 [facility] Last Admin: 01/07/20 17:55 Dose: 20 mg Senna/Docusate Sodium (Senokot S) 2 tab PO BID PRN PRN Reason: Constipation Sodium Chloride (Flush - Normal Saline) 10 ml IVF Q12HR [facility] Last Admin: 01/08/20 08:21 Dose: Not Given Sodium Chloride (Flush - Normal Saline) 10 ml IVF PRN PRN PRN Reason: Saline Flush Tramadol HCl (Ultram) 50 mg PO Q4H PRN PRN Reason: Moderate Pain (4-6) Last Admin: 01/05/20 22:05 Dose: 50 mg Vital Signs & Weight: Vital Signs Temp Pulse Resp BP BP Pulse Ox 01/08/20 11:43 97.5 F L 68 16 120/60 92 L 01/08/20 08:18 66 111/68 01/08/20 08:15 93 L 01/08/20 07:46 98.5 F 67 16 96/54 L 91 L 01/08/20 04:00 98.1 F 69 16 103/61 92 L Weight 218 lb 8 oz I/O: I/O 01/07/20 01/08/20 01/09/20 06:59 06:59 06:59 Intake Total 870 Output Total 675 Balance 195 - Quality Measures Condition: Atrial Fibrillation/Flutter (hx or current) CV meds: Xarelto: Yes - Physical Exam General: alert & oriented x3 HEENT: mucus membranes moist, normocephaly Neck: supple neck, midline trachea, no JVD/HJR, no masses, no bruit, no lymphadenopathy, no thromegaly Cardiology: regular rate and rhythm, no murmur, S1/S2. negative: audible murmur Lungs: clear to auscultation, normal breath sounds Neurology: cranial nerve 2-12 intact, grossly intact, coordination normal Abdomen: unremarkable, active bowel sounds, HJR negative - Labs Result Diagrams: 01/07/20 07:45 01/05/20 04:20 - EKG Interpretation EKG Method: Telemetry EKG shows: Sinus rhythm - Device Device: biventricular, defibrillator Device Result: Medtronic - Assessment/Plan Assessment/Plan: 1. Atypical pleuritic chest pain as well as diaphragmatic stim like discomforts, prompting current admission. 2. Status post Bi-V ICD implant with a Medtronic MRI-compatible Bi-V ICD on 01/02/2020. 3. Chronic systolic congestive heart failure with ischemic cardiomyopathy. a. 2D echo from 11/23/2019 shows LVEF of 25% to 30%. b. Left heart catheterization from 11/25/2019 shows 3-vessel coronary artery disease, severely impaired left ventricular systolic function, on medical management. 4. History of syncopal spells. 5. History of nonsustained ventricular tachycardia. 6. Left bundle-branch block. 7. History of COPD, smoking in the past. 8. Atrial fibrillation - newly diagnosed 01/06/2020 - CHADS2-VASC score of 4, started xarelto 01/06 PM - started on amiodarone loading 01/06/2020. - converted to SR 0900 on 01/06. now demand AP, TRACKMOBILE OPERATOR pacing. 9. Amiodarone therapy - CXR 01/04 - TSH and LFTs WNL 01/05 Continue amiodarone loading. Maintaining SR (, TRACKMOBILE OPERATOR pacing). Continue xarelto. Continue Keflef s/p ICD implant last week. OK for DC by EP. 2 week follow up device/wound check will be arranged.
[2020-01-08] MEDS ORDERED: Loperamide HCl 2 MG CAP PO SCH (15:00)
[2020-01-08 15:39] VITALS: BP 113/67; TEMP 98.2
== END 2020-01-08 16:03 | disposition home or self-care (01) | DRG 204 ==
LOC: 2SE 17:33
PROVIDERS: ADMIT Internal Medicine; ATTEND Internal Medicine
DX: R07.81 Pleurodynia (principal); I47.2 Ventricular tachycardia; I50.22 Chronic systolic (congestive) heart failure; J98.11 Atelectasis; I25.5 Ischemic cardiomyopathy; I25.10 Atherosclerotic heart disease of native coronary artery without angina pectoris; I44.7 Left bundle-branch block, unspecified; G40.909 Epilepsy, unspecified, not intractable, without status epilepticus; E78.5 Hyperlipidemia, unspecified; J44.9 Chronic obstructive pulmonary disease, unspecified; Z88.8 Allergy status to other drugs, medicaments and biological substances; Z95.810 Presence of automatic (implantable) cardiac defibrillator; E11.9 Type 2 diabetes mellitus without complications; E78.00 Pure hypercholesterolemia, unspecified; F17.210 Nicotine dependence, cigarettes, uncomplicated; Z82.49 Family history of ischemic heart disease and other diseases of the circulatory system; I48.91 Unspecified atrial fibrillation
CPT/HCPCS: 36415; 36416; 80048; 80061; 80076; 81001; 83735; 84443; 84484; 85025; 93005; 93010; J1940; J7050

== ENCOUNTER 2020-09-13 13:34 | Inpatient (IN) | payer MEDICARE ==
[2020-09-13] MEDS ORDERED: Norepinephrine 8 MG/0.9% NS 250 ML ONE (13:47)
[2020-09-13] MEDS ORDERED: Acetaminophen 500 MG TAB ONE (13:48)
[2020-09-13] MEDS ORDERED: Cefepime 2 GM VIAL ONE (13:52)
[2020-09-13] MEDS ORDERED: Vancomycin 1 GM/200 ML BAG ONE (13:52)
[2020-09-13 14:14] LABS: Hemoglobin 15.3 g/dL (14.0-18.0); Mean Corpuscular HGB CONC 35.1 g/dL (32.0-36.0); Mean Corpuscular Hemoglobin 28.6 pg (27.0-31.0); Mean Corpuscular Volume 81.4 fL (78.0-98.0); Mean Platelet Volume 8.4 fL (7.4-10.4); Platelet Count 107 thou/uL (130-400); Red Blood Cell (RBC) Count 5.36 mill/uL (4.70-6.10); White Blood Cell (WBC) Count 13.7 thou/uL (4.8-10.8)
[2020-09-13 14:29] LABS: Band 18 % (5-11); Lymphocytes 3 % (21-51); MDiff Complete? YES; Metamyelocyte 6 % (0-0); Monocytes 7 % (0-10); Neutrophil 66 % (42-75); Platelet Morphology Comment Appears Decreased; RBC Morphology Normal
--- NOTE | 2020-09-13 14:33 | RAD ---
RADIOGRAPH CHEST 1 VIEW: DATE: 09/13/2020 TIME: 2:12 PM HISTORY: 70-year-old male status post acute chest trauma from fall COMPARISON: 01/28/2020 FINDINGS: Previously demonstrated small right pleural effusion is smaller now than before. There is blunting of the left lateral costophrenic angle which appears similar to prior study which m ay or may not be a small left pleural effusion. Left subclavian AICD remains. Previously seen mild pulmonary interstitial edema has resolved. No new consolidation. No pneumothorax. IMPRESSION: Small right pleural effusion and questionable small left pleural effusion.
--- NOTE | 2020-09-13 14:33 | RAD ---
Exam:2 views left hip HISTORY: Unwitnessed fall. Pain. COMPARISON: None FINDINGS: Contour of the femoral head is maintained. Joint space appears to be preserved. No fracture or dislocation. Visualized left pelvis is intact. IMPRESSION: No fracture. If the patient is unable to bear weight, CT is recommended.
[2020-09-13 14:35] LABS: ALT (SGPT) 24 U/L (8-55); AST (SGOT) 54 U/L (5-34); Albumin 3.5 g/dL (3.4-4.8); Alkaline Phosphatase 55 U/L (40-110); Anion Gap 17 mmol/L (10-20); BUN (Urea Nitrogen) 26 mg/dL (8.4-25.7); Bilirubin, Total 1.7 mg/dL (0.2-1.2); Calc. Creatinine Clearance 0 mL/min (70-130); Calcium 8.3 mg/dL (7.8-10.44); Carbon Dioxide 21 mmol/L (23-31); Chloride 93 mmol/L (98-107); Estimated GFR-MDRD 47; Globulin 2.5 g/dL (2.4-3.5); Glucose 271 mg/dL (80-115); Potassium 3.3 mmol/L (3.5-5.1); Sodium 128 mmol/L (136-145)
[2020-09-13 14:49] LABS: Acetaminophen Less than 6.0 mcg/mL (10.0-30.0); Alcohol Less than 10 mg/dL (Less than 10); CK (CPK) 2437 U/L (30-200); Salicylate Less than 8.0 mg/dL (15.0-30.0)
--- NOTE | 2020-09-13 15:42 | CT ---
CT BRAIN NONCONTRAST: DATE: 09/13/2020 HISTORY: 70-year-old male status post acute head trauma from fall FINDINGS: There is no evidence of acute intra-axial or extra-axial hemorrhage. There is no midline shift or any other mass effect. There is no extra-axial fluid collection. There is no evidence of obstructive hydrocephalus. Calvarium is intact. There are multiple focal small patchy irregularly-shaped focal wh ite matter hypodense lesions in the periventricular and deep cerebral white matter bilaterally, involving hooper radiata and centrum semiovale. These are not typical for chronic ischemic white leticia er changes. There has been no interval change since 02/09/2019. IMPRESSION: 1. No acute intracranial findings. 2. Multifocal bilateral cerebral periventricular and deep white matter lesions. If the patient has a diagnosis of multiple sclerosis prior to the age of 50, then these could represent demyelinating plaques of multiple sclerosis. Alternatively, these could represent multiple deep cerebral white leticia er small old infarctions. 3. No interval change since 02/09/2019.
[2020-09-13 15:45] LABS: CKMB 8.1 ng/mL (0-6.6)
--- NOTE | 2020-09-13 15:45 | CT ---
CT OF CERVICAL SPINE PERFORMED WITHOUT CONTRAST ENHANCEMENT: History: Fall with neck injury. FINDINGS: Vertebral bodies are normal in height. Degenerative changes are seen along the course of the spine. D isc narrowing from C3-4 to C7-T1, most pronounced at the C5-6 level. The facets are in normal alignme nt. No significant canal stenosis. Some mild left sided foraminal narrowing at C3-4 and C5-6. There i s no CT evidence for fracture. Carotid bulb calcifications are present. Lung apices show some nonspecific parenchymal change. This i s not appreciated on the plain film examination done earlier today. IMPRESSION: 1. No CT evidence of fracture. 2. Some interstitial changes are seen in the lung apices. I cannot exclude this as some minimal groun d glass type infiltrate. It is not appreciated on the plain film examination. POS: PHNAI
[2020-09-13 15:50] LABS: SARS-CoV-2 NAA Rapid Test Not Detected (NotDetected)
[2020-09-13 15:50] LABS: Bacteria/HPF None Seen HPF (None Seen); Bilirubin Negative (Negative); Blood, Urine 3+ (Negative); Clarity Turbid (Clear); Glucose, Urine (Dipstick) Normal (Negative); Ketone, Urine Negative (Negative); Leukocyte 250 Leu/uL (Negative); Nitrite Negative (Negative); Protein, Urine (Dipstick) 100 mg/dL (Neg-Trace); Specific Gravity, Urine 1.015 (1.002-1.036); Squamous Epithelial 0-3 HPF (0-3); Urobilinogen Normal mg/dL (Less than 2); pH, Urine 5.5 (5.0-9.0)
[2020-09-13 15:58] LABS: Amphetamine Not Detected (NotDetected); Benzodiazepine Screen Not Detected (NotDetected); Cocaine Metabolite Screen Not Detected (NotDetected); Medtox Reader # READER 4; Methamphetamine Not Detected (NotDetected); Opiate Screen Not Detected (NotDetected); Phencyclidine (PCP) Not Detected (NotDetected); THC/Cannabinoid Screen Not Detected (NotDetected)
[2020-09-13 15:59] LABS: Barbiturates Screen Not Detected (NotDetected); Medtox Control Line Valid? VALID (VALID); Methadone Not Detected (NotDetected); Oxycodone Screen Not Detected (NotDetected); Tricyclic Screen Not Detected (NotDetected)
[2020-09-13 17:11] LABS: Lactic Acid 1.3 mmol/L (0.5-2.2)
[2020-09-13] MEDS ORDERED: Ondansetron PF 4 MG/2 ML Vial IVP PRN (17:15)
[2020-09-13] MEDS ORDERED: Acetaminophen 325 MG TAB PO PRN (17:15)
[2020-09-13] MEDS ORDERED: Ondansetron ODT 4 MG TAB SL PRN (17:15)
[2020-09-13 17:21] VITALS: BMI 188.4
[2020-09-13] MEDS ORDERED: Nitroglycerin 0.4 MG TAB (25 Tab Bottle) SL PRN (17:21)
[2020-09-13] MEDS ORDERED: Dextrose 5% in Water 1,000 ML IV PRN (17:23)
[2020-09-13] MEDS ORDERED: Dextrose 50% Abboject 50 ML SYRINGE SLOW IVP PRN (17:23)
--- NOTE | 2020-09-13 17:31 | PDOC.HHP ---
Hospitalist HPI - History of Present Illness Found down History of Present Illness: 70 YO M with a PMH of HTN, DM, Afib, PM, Gout and Seizures who was brought in by family after he was found down in his home covered with feces and urine. Pt is a poor historian and does not remember a lot. Hx is therefore taken from the ER DrSunitha Umaña thinks he has been down for about 3-4 daay. Does not know if he fell or pas sed out. Does not recall preceding events. Upon presentation, he was noted to be febrile w temps of 103F, elevated lactic acid and CK. UA is consisted with UTI. He will be admitted for further evaluation Hospitalist ROS - Review of Systems ROS unobtainable: due to mental status Constitutional: reports: weakness, malaise Hospitalist History - Past Medical History Cardiac: reports: AFIB, HTN, Other (Pacemaker) - Past Surgical History Past Surgical History: reports: Appendectomy, Other (knee surgery) - Family History Family History: reports: hypertension - Social History Smoking Status: Current every day smoker Tobacco Type: cigarettes Alcohol: reports: None Drugs: reports: none Living Situation: Alone Domestic Violence: Negative Activity level: independent ambulation - Exam General Appearance: awake alert, ill appearing Eye: PERRL, anicteric sclera ENT: normocephalic atraumatic, no oropharyngeal lesions Neck: supple, symmetric, no JVD, no thyromegaly Heart: RRR, no murmur, no gallops, no rubs Respiratory: CTAB, no wheezes, no rales, no ronchi Gastrointestinal: soft, non-tender, non-distended, normal bowel sounds Extremities: no cyanosis, no clubbing, no edema Skin: no lesions Skin - other findings: bruises on left knee. Scabs sen on BL LE Neurological: cranial nerve grossly intact, no focal deficits Musculoskeletal: normal strength, no muscle wasting Psychiatric: normal affect, normal behavior, oriented to place Hospitalist Results - Labs Result Diagrams: 09/13/20 13:56 09/13/20 13:56 Lab results: WBC 13.7 thou/uL (4.8-10.8) H 09/13/20 13:56 Hgb 15.3 g/dL (14.0-18.0) 09/13/20 13:56 Hct 43.6 % (42.0-52.0) 09/13/20 13:56 MCV 81.4 fL (78.0-98.0) 09/13/20 13:56 Plt Count 107 thou/uL (130-400) L 09/13/20 13:56 Band Neuts % (Manual) 18 % (5-11) H 09/13/20 13:56 Sodium 128 mmol/L (136-145) L 09/13/20 13:56 Potassium 3.3 mmol/L (3.5-5.1) L 09/13/20 13:56 Chloride 93 mmol/L (98-107) L 09/13/20 13:56 Carbon Dioxide 21 mmol/L (23-31) L 09/13/20 13:56 BUN 26 mg/dL (8.4-25.7) H 09/13/20 13:56 Creatinine 1.48 mg/dL (0.7-1.3) H 09/13/20 13:56 Glucose 271 mg/dL (80-115) H 09/13/20 13:56 Lactic Acid 1.3 mmol/L (0.5-2.2) 09/13/20 16:36 Calcium 8.3 mg/dL (7.8-10.44) 09/13/20 13:56 Total Bilirubin 1.7 mg/dL (0.2-1.2) H 09/13/20 13:56 AST 54 U/L (5-34) H 09/13/20 13:56 ALT 24 U/L (8-55) 09/13/20 13:56 Alkaline Phosphatase 55 U/L (40-110) 09/13/20 13:56 Creatine Kinase 2437 U/L (30-200) H 09/13/20 13:56 CK-MB (CK-2) 8.1 ng/mL (0-6.6) H* 09/13/20 13:56 Troponin I 0.109 ng/mL (< 0.028) H 09/13/20 13:56 Serum Total Protein 6.0 g/dL (5.8-8.1) 09/13/20 13:56 Albumin 3.5 g/dL (3.4-4.8) 09/13/20 13:56 Urine Ketones Negative mg/dL (Negative) 09/13/20 15:00 Urine Blood 3+ (Negative) A 09/13/20 15:00 Urine Nitrite Negative (Negative) 09/13/20 15:00 Ur Leukocyte Esterase 250 Hodan/uL (Negative) A 09/13/20 15:00 Urine RBC 7-10 HPF (0-3) A 09/13/20 15:00 Urine WBC 11-20 HPF (0-3) A 09/13/20 15:00 Ur Squamous Epith Cells 0-3 HPF (0-3) 09/13/20 15:00 Urine Bacteria None Seen HPF (None Seen) 09/13/20 15:00 Hospitalist H&P A/P - Problem (1) Rhabdomyolysis Code(s): M62.82 - RHABDOMYOLYSIS Status: Acute Qualifiers: Rhabdomyolysis type: non-traumatic Qualified Code(s): M62.82 - Rhabdomyolysis Assessment and Plan: Likely due to staying on floor for a few days. Will hydrate and check CK levels. (2) WILL (acute kidney injury) Code(s): N17.9 - ACUTE KIDNEY FAILURE, UNSPECIFIED Status: Acute Assessment and Plan: Will hydrate and check Cr. (3) Hypokalemia Code(s): E87.6 - HYPOKALEMIA Status: Acute Assessment and Plan: Will replace. Monitor K levels. (4) Sepsis Code(s): A41.9 - SEPSIS, UNSPECIFIED ORGANISM Status: Acute Qualifiers: Sepsis type: sepsis due to unspecified organism Assessment and Plan: Determined by fever, leucocytosis and elevated lactic acid. Possible source is a UTI. Will cont abx, f/u with bld and urine cx. (5) UTI (urinary tract infection) Status: Acute (6) Acute systolic CHF (congestive heart failure), NYHA class 2 Code(s): I50.21 - ACUTE SYSTOLIC (CONGESTIVE) HEART FAILURE Status: Acute Assessment and Plan: Cont med mgt. Will monitor for symp of vol overload, given current hydration for WILL and Rhabdo. (7) Diabetes mellitus Code(s): E11.9 - TYPE 2 DIABETES MELLITUS WITHOUT COMPLICATIONS Status: Acute Assessment and Plan: Cont prior meds Cover with SSI. (8) Hx of syncope Code(s): Z87.898 - PERSONAL HISTORY OF OTHER SPECIFIED CONDITIONS Status: C hronic Assessment and Plan: Unclear etiology. Pt has a PM too. May need to get interrogated. Have consulted cardiology. (9) Tobacco abuse Code(s): Z72.0 - TOBACCO USE Status: Chronic Assessment and Plan: Will be counseled prior to dc when more stable. Will give nicotine patch for now - Plan Plan: PPx: SCDs. CODE: FULL. Dispo: Admit as inpt.
--- NOTE | 2020-09-13 17:41 | RAD ---
EXAM: CHEST ONE VIEW HISTORY: Sepsis COMPARISON: 09/13/2020 at 1412 hours FINDINGS: Triple lead left subclavian AICD device remains in place. Cardiac silhouette is magnified by projecti on. Inferior aspect left lateral costophrenic angle is excluded from view. There are linear densities at the left lung base probably attributable to atelectasis. Small left pleural effusion see n on prior study is less perceptible on this exam. Right lung is clear. No other interval change. IMPRESSION: Atelectasis left lung base. The inferior aspect left lateral costophrenic angle is excluded from view on this exam.
[2020-09-13] MEDS ORDERED: Potassium Chloride 20 MEQ TAB PO SCH (17:45)
[2020-09-13] MEDS ORDERED: Rivaroxaban 10 MG TAB PO SCH (18:00)
[2020-09-13] MEDS: Lactated Ringer's 1,000 ML IV SCH (18:15)
[2020-09-13] MEDS: Sodium Chloride 0.9% 1,000 ML IV SCH (18:15)
[2020-09-13] MEDS: HumaLOG 300 UNITS/3 ML VIAL SC PRN (18:24)
[2020-09-13 18:41] LABS: CKMB 13.9 ng/mL (0-6.6)
[2020-09-13] MEDS: Atorvastatin Calcium 40 MG TAB PO SCH (20:44)
[2020-09-13] MEDS: Amiodarone 200 MG TAB PO SCH (20:44)
[2020-09-13] MEDS: levETIRAcetam 500 MG TAB PO SCH (20:45)
[2020-09-13 21:06] LABS: Troponin I 0.185 ng/mL (< 0.028)
[2020-09-13] MEDS ORDERED: Cefepime 2 GM VIAL IVPB SCH (22:00)
[2020-09-14] MEDS: Lactated Ringer's 1,000 ML IV SCH (01:24)
[2020-09-14] MEDS: Cefepime 2 GM in Sodium Chloride 0.9% 100 ML IVPB SCH ×2 (01:27→18:20)
[2020-09-14] MEDS: Sodium Chloride 0.9% 1,000 ML IV SCH ×3 (01:28→21:25)
[2020-09-14] MEDS ORDERED: Sodium Chloride 0.9% 250 ML IV SCH (02:45)
[2020-09-14 03:58] LABS: #Lymphocytes 0.5 thou/uL (1.20-3.40); #Monocytes 0.6 thou/uL (0.11-0.59); #Neutrophils 8.3 thou/uL (1.40-6.50); %Basophils 0.2 % (0.0-1.0); %Eosinophils 0.1 % (0.0-10.0); %Lymphocytes 5.5 % (21.0-51.0); %Monocytes 6.3 % (0.0-10.0); %Neutrophils 87.9 % (42.0-75.0); Hemoglobin 14.4 g/dL (14.0-18.0); Mean Corpuscular HGB CONC 34.1 g/dL (32.0-36.0); Mean Corpuscular Hemoglobin 28.2 pg (27.0-31.0); Mean Corpuscular Volume 82.8 fL (78.0-98.0); Mean Platelet Volume 8.4 fL (7.4-10.4); Platelet Count 99 thou/uL (130-400); RBC Distribution Width 13.1 % (11.5-14.5); Red Blood Cell (RBC) Count 5.08 mill/uL (4.70-6.10); White Blood Cell (WBC) Count 9.5 thou/uL (4.8-10.8)
[2020-09-14 04:33] LABS: ALT (SGPT) 32 U/L (8-55); AST (SGOT) 88 U/L (5-34); Albumin 3.1 g/dL (3.4-4.8); Alkaline Phosphatase 51 U/L (40-110); Anion Gap 13 mmol/L (10-20); BUN (Urea Nitrogen) 21 mg/dL (8.4-25.7); Bilirubin, Total 1.1 mg/dL (0.2-1.2); CK (CPK) 3163 U/L (30-200); Calc. Creatinine Clearance 103 mL/min (70-130); Calcium 8.3 mg/dL (7.8-10.44); Carbon Dioxide 27 mmol/L (23-31); Chloride 100 mmol/L (98-107); Estimated GFR-MDRD 83; Globulin 2.4 g/dL (2.4-3.5); Glucose 157 mg/dL (80-115); Potassium 3.2 mmol/L (3.5-5.1); Protein, Total 5.5 g/dL (5.8-8.1); Sodium 137 mmol/L (136-145)
[2020-09-14] MEDS ORDERED: Electrolyte Replacement Protocol FS PRN (07:00)
[2020-09-14] MEDS ORDERED: FLU VACC QS2020-21(65YR UP)/PF 240 MCG/0.7 ML SYRINGE IM ONE (09:00)
[2020-09-14] MEDS: Lisinopril 2.5 MG TAB PO SCH (09:14)
[2020-09-14] MEDS: levETIRAcetam 500 MG TAB PO SCH ×2 (09:15→21:24)
[2020-09-14] MEDS: Carvedilol 3.125 MG TAB PO SCH ×2 (09:15→17:49)
[2020-09-14] MEDS: Aspirin Chewable 81 MG TAB PO SCH (09:15)
[2020-09-14] MEDS: Famotidine 20 MG TAB PO SCH (09:15)
[2020-09-14] MEDS: Amiodarone 200 MG TAB PO SCH ×2 (09:16→21:25)
[2020-09-14] MEDS: Furosemide 20 MG TAB PO SCH (09:16)
[2020-09-14] MEDS: metFORMIN 500 MG TAB PO SCH ×2 (09:16→17:49)
[2020-09-14] MEDS ORDERED: Iopamidol-370 76% 500 ML 1 ML ONE (10:24)
[2020-09-14 12:24] LABS: Potassium 3.5 mmol/L (3.5-5.1)
--- NOTE | 2020-09-14 14:33 | CT ---
CT CHEST AND ABDOMEN AND PELVIS WITH IV CONTRAST: Date: 09/14/2020 PROVIDED CLINICAL HISTORY: Bacteremia. FINDINGS: Correlation is made with CT angiogram of the chest dated 01/04/2020. The mckeon, pericardium, and great vessels demonstrate an unremarkable CT appearance other than vascula r calcification including coronary calcium. There is no evidence for thoracic lymph node enlargement. Evaluation of the lung parenchyma is limite d by patient respiratory motion. Findings typical for atelectatic change demonstrated in both lung ba ses. Emphysematous changes are seen involving the lung apices. There is no pleural fluid or pneumotho rax apparent. The airway appears patent and of normal caliber. The liver, spleen, pancreas, kidneys, and adrenal glands appear unremarkable. There is no bowel dilatation, inflammatory fat stranding, free fluid, or lymph node enlargement appar ent. There are occasional somewhat linear filling defects within the distal small bowel, the etiology and significance of which are not certain. There is a 3.1 cm infrarenal abdominal aortic aneurysm. Conspicuous sigmoid colonic diverticulosis without CT evidence for diverticulitis. The osseous structures demonstrate no concerning lytic or blastic lesions. IMPRESSION: No definite evidence for an acute process. Chronic findings as above. POS: AH
--- NOTE | 2020-09-14 15:40 | PDOC.HOSPP ---
- Subjective Encounter Date: 09/14/20 Encounter Time: 10:50 Subjective: awake, no cough, chest pain, palp or abd pain no nausea or diarrhea is eating well, oriented well now has flaking of his skin all over, he doesn't know if he has a skin condition leading to those - Objective Vital Signs & Weight: Vital Signs (12 hours) Temp Pulse Pulse Ox 09/14/20 15:00 99.8 F H 09/14/20 09:14 97 09/14/20 08:00 98 09/14/20 07:14 99.0 F 09/14/20 04:02 98.6 F Weight Weight 209 lb 7.026 oz Most Recent Monitor Data Heart Rate from ECG 87 NIBP 109/66 NIBP BP-Mean 80 Respiration from ECG 19 SpO2 97 I&O: 09/13/20 09/14/20 09/15/20 06:59 06:59 06:59 Intake Total 1590 Output Total 1200 275 Balance 390 -275 Result Diagrams: 09/14/20 03:18 09/14/20 11:52 Additional Labs: Accuchecks 09/14/20 09/13/20 09/13/20 05:31 20:56 18:14 POC Glucose 138 H 208 H 232 H Hospitalist ROS - Medication Medications: Active Medications Generic Name Dose Route Start Last Admin Trade Name Demondq PRN Reason Stop Dose Admin Amiodarone HCl 400 mg 09/13/20 21:00 09/14/20 09:16 Amiodarone 200 Mg Tab PO 09/18/20 21:01 400 mg BID AUDREY Administration Aspirin 81 mg 09/14/20 09:00 09/14/20 09:15 Aspirin Chewable 81 Mg Tab PO 81 mg DAILY AUDREY Administration Atorvastatin Calcium 40 mg 09/13/20 21:00 09/13/20 20:44 Atorvastatin Calcium 40 Mg Tab PO 40 mg HS AUDREY Administration Carvedilol 1.5625 mg 09/14/20 08:00 09/14/20 09:15 Carvedilol 3.125 Mg Tab PO 1.5625 mg BID-WM AUDREY Administration Famotidine 20 mg 09/14/20 09:00 09/14/20 09:15 Famotidine 20 Mg Tab PO 20 mg DAILY AUDREY Administration Furosemide 20 mg 09/14/20 09:00 09/14/20 09:16 Furosemide 20 Mg Tab PO 20 mg DAILY AUDREY Administration Cefepime HCl 2 gm/ Sodium 100 mls @ 200 mls/hr 09/14/20 02:00 09/14/20 01:27 Chloride IVPB 100 mls 0200,1400 AUDREY Administration Sodium Chloride 1,000 mls @ 100 mls/hr 09/14/20 07:55 09/14/20 09:17 Normal Saline 0.9% IV 1,000 mls .Q10H AUDREY Administration Insulin Human Lispro 0 units 09/13/20 17:23 09/13/20 18:24 Humalog 300 Units/3 Ml Vial SC 4 unit .MODERATE SLIDING SC PRN Administration Moderate Correctional Scale Levetiracetam 500 mg 09/13/20 21:00 09/14/20 09:15 Levetiracetam 500 Mg Tab PO 500 mg BID AUDREY Administration Lisinopril 2.5 mg 09/14/20 09:00 09/14/20 09:14 Lisinopril 2.5 Mg Tab PO 2.5 mg DAILY AUDREY Administration Metformin HCl 500 mg 09/14/20 08:00 09/14/20 09:16 Metformin 500 Mg Tab PO 500 mg BID-WM AUDREY Administration - Exam General Appearance: awake alert Eye: PERRL, anicteric sclera ENT: no oropharyngeal lesions, dry oral mucosa Neck: supple, no JVD Heart: RRR, no murmur Respiratory: no wheezes, no rales, rhonchi Gastrointestinal: soft, non-tender, non-distended, normal bowel sounds Extremities: no cyanosis, no edema Neurological: cranial nerve grossly intact, no focal deficits Psychiatric: normal affect, A&O x 3 Hosp A/P (1) Bacteremia Code(s): R78.81 - BACTEREMIA Status: Acute (2) WILL (acute kidney injury) Code(s): N17.9 - ACUTE KIDNEY FAILURE, UNSPECIFIED Status: Resolved (3) Rhabdomyolysis Code(s): M62.82 - RHABDOMYOLYSIS Status: Acute Qualifiers: Rhabdomyolysis type: non-traumatic Qualified Code(s): M62.82 - Rhabdomyolysis (4) Sepsis Code(s): A41.9 - SEPSIS, UNSPECIFIED ORGANISM Status: Acute Qualifiers: Sepsis type: sepsis due to unspecified organism (5) UTI (urinary tract infection) Status: Acute Qualifiers: Urinary tract infection type: acute cystitis Hematuria presence: without hematuria Qualified Code(s): N30.00 - Acute cystitis without hematuria (6) Cardiomyopathy Code(s): I42.9 - CARDIOMYOPATHY, UNSPECIFIED Status: Chronic Qualifiers: Cardiomyopathy type: unspecified Qualified Code(s): I42.9 - Cardiomyopathy, unspecified (7) Diabetes mellitus Code(s): E11.9 - TYPE 2 DIABETES MELLITUS WITHOUT COMPLICATIONS Status: Chronic Qualifiers: Diabetes mellitus type: type 2 Diabetes mellitus termite control servicer insulin use: without termite control servicer use (8) Wide-complex tachycardia Code(s): I47.2 - VENTRICULAR TACHYCARDIA Status: Suspected - Plan is on amiodarone, iv fluids, cefepime and vanc await full cultures results, is growing gm +ve cocci 2/2, ID consultation CT chest, abd and pelvis, no obvious source likely infection source is his skin? echo CT brain showed lesions s/o MS? or severe chr isch changes is on asp, lipitor, coreg, keppra, lisinopril, metformin, xarelto hemostable may tx to tele
--- NOTE | 2020-09-14 17:28 | CON ---
DATE OF CONSULTATION: HISTORY: Wes Torre is a 70-year-old white male, initially evaluated in November 2019. He had previous history of seizure disorder, made in January 2019. He apparently was throwing hay addis, blacked down, found himself on the ground. He was then diagnosed to have a seizure disorder and was placed on Keppra. He also had another episode where he was walking upstairs to go to the bathroom and again found himself on the floor. Prior to that, he had never undergone any cardiac evaluation. He then developed increasing shortness of breath. He was transferred to [facility] and then was sent here for further evaluation. He would desaturate on room air into the 80s in the emergency room. He was given Lasix 40 mg IV, lisinopril 10 mg p.o., and another 40 mg of Lasix IV. His breathing significantly improved. In January 2019, his EKG was normal. However, on admission in November 2019, he had left bundle-branch block. Echocardiogram in November 2019 revealed ejection fraction of 25% to 30% with grade 1/3 diastolic dysfunction, dilated left ventricle, mild left atrial enlargement, mitral annular calcification, [id number] mitral regurgitation, aortic valvular sclerosis, mild tricuspid regurgitation. He underwent cardiac catheterization which revealed severe global left ventricular hypokinesis with ejection fraction of 25% to 30%. There was a 30% proximal LAD and 60% mid LAD lesion. The circumflex had a distal 99% lesion; however, this was approximately 1-mm vessel and filled retrograde from the left. There was 60% 3rd obtuse marginal lesion. The right coronary artery had a 50% mid lesion and 50% distal lesion. It was felt best to treat him medically for his 3-vessel coronary artery disease. During that admission, at times, he would have episodes of wide-complex tachycardia. With his previous history of syncope, (questionable seizures), wide-complex tachycardia, new left bundle-branch block, Electrophysiology was consulted. Dr. Lyn recommended a biventricular defibrillator be placed; however, he declined. He also declined a LifeVest. Mr. Torre then decided to proceed with biventricular ICD placement, which was performed on [facility] He then began to notice some pleuritic-type chest pain in the epigastric area that seemed to radiate to his shoulder. He also had hiccup-type sensation, which probably was diaphragmatic stimulation. Chest CT revealed no evidence of pulmonary embolism. There was no pericardial effusion. His shortness of breath improved, although the chest discomfort was pleuritic in nature. He did not require any specific treatment and was discharged 4 days later. He was seen in April 2020 via telemedicine followup. He denies any chest discomfort or shortness of breath. He stated that his energy level had dramatically improved with the device. He again was seen for telemedicine visit in May 2020, and again denied any chest discomfort or shortness of breath. Echocardiogram was performed, which revealed ejection fraction of 25% to 30% with severe global hypokinesis, evidence for diastolic dysfunction, defibrillator lead in the right ventricle, left atrial enlargement, aortic valve sclerosis, moderate mitral regurgitation, mild tricuspid regurgitation. His carvedilol was increased at that time, and there was consideration of placing him on Entresto in the future, but I did not have any recent blood work to know what his creatinine was. He apparently was doing well until several days ago. He apparently was found down at home, covered with feces and urine. The patient does not recall exactly what happened, but just "I fell." He thought he had been down for approximately 3 to 4 days. He was found to have a temperature of 103 and is growing gram-positive cocci in 2/2 blood cultures. He denies any chest discomfort, shortness of breath, or leg edema and again re-emphasized that his energy level dramatically improved after placement of the biventricular ICD, although his ejection fraction was not significantly improved. PAST MEDICAL HISTORY: Diabetes, hypercholesterolemia, 3-vessel coronary artery disease for medical therapy, probably nonischemic cardiomyopathy with ejection fraction of 25% to 30%, left bundle-branch block, wide-complex tachycardia. MEDICATIONS: 1. Amiodarone 200 mg b.i.d. 2. Aspirin 81 daily. 3. Atorvastatin 40 mg at bedtime. 4. Carvedilol 3.125 b.i.d. 5. Furosemide 20 mg daily. 6. Keppra 500 mg b.i.d. 7. Lisinopril 2.5 daily. 8. Metformin 500 mg b.i.d. 9. Nitroglycerin p.r.n. 10. Xarelto 20 mg daily. ALLERGIES: NSAIDS. OPERATIONS: Appendectomy and knee surgery. SOCIAL HISTORY: He smoked 1 to 1-1/2 packs per day, but apparently stopped in May. He does not drink alcohol. FAMILY HISTORY: Mother had bypass surgery. REVIEW OF SYSTEMS: A 10-point review of systems unremarkable. PHYSICAL EXAMINATION: VITAL SIGNS: Blood pressure 109/66, pulse of 87. HEENT: PERRL. NECK: Supple. CHEST: Clear. CARDIAC: S1 and S2 normal without any S3, S4, or murmurs. ABDOMEN: Normal bowel sounds without tenderness or organomegaly. EXTREMITIES: Revealed no clubbing, cyanosis, or edema. NEUROLOGIC: Grossly intact. LABORATORY DATA: EKG reveals ventricular pacing. Chest CT, abdominal CT results are pending. Brain CT revealed multifocal bilateral cerebral, periventricular, and deep white matter lesions. On admission, white count was 13,700, but is now down to 9500. Urine drug screen is negative. COVID is negative. Sodium 137, potassium 3.2, carbon dioxide 27, BUN 21, creatinine 0.91. Creatine kinase 3163, CK-MB 13.9, troponin I 0.194. 2/2 blood cultures growing gram-positive cocci. IMPRESSION: 1. Found down at home for possibly 3 days. 2. Rhabdomyolysis. 3. Ccw-IV-slcblxq elevation myocardial infarction, type 2. 4. 3-vessel coronary artery disease for medical therapy. 5. Severe left ventricular dysfunction with last ejection fraction of 25% to 30%. 6. Status post biventricular implantable cardioverter-defibrillator with dramatic improvement in his energy level. 7. Left bundle-branch block which was new in November 2019. 8. Hypercholesterolemia. 9. Former smoker. 10. Syncope. 11. Diabetes. 12. Seizure disorder. 13. Aortic valvular sclerosis. 14. Moderate mitral regurgitation. RECOMMENDATIONS: The patient will continue on current medications. Blood pressure will be watched closely and consideration may be given to therapy with Entresto. He is being covered with broad-spectrum antibiotics. Also, his ICD will be interrogated. Job ID: [id number] [facility]
[2020-09-14] MEDS: Rivaroxaban 10 MG TAB PO SCH (17:48)
--- NOTE | 2020-09-14 18:48 | CON ---
DATE OF CONSULTATION: 09/14/2020 REASON FOR CONSULTATION: Bacteremia. HISTORY OF PRESENT ILLNESS: A 70-year-old gentleman, who has a history of ischemic cardiomyopathy, EF 25% to 30% and an AICD placed recently, who was found unconscious in his house by his traffic expert and EMS was brought him over to the emergency room at [facility]. On arrival, he was febrile with a temperature of 103 and BP in 86/55, O2 saturations were 87 on room air and 91 on 2 L. The exam shows mild erythema in the gluteal region. He did not appear in acute distress, was alert and oriented. Initial findings included white cell count 13.7, hemoglobin 15, platelets 107, and bands were 18%. Creatinine 0.91, AST 88, and alkaline phosphatase was 51. CK was 3100, albumin 3.1, and troponin 0.185. Urinalysis with 11 to 20 wbc's. Toxicology with less than 10 alcohol plasma. No other drug found in his toxic screen. SARS-CoV was not detected. CT abdomen, chest, and pelvis were not particularly remarkable. No infiltrates in the chest noted. He had a cervical spine CT without any findings of significance. Of note, there was some motion artifact in the CT of chest. Brain CT with periventricular and deep white matter lesions of unclear etiology and now, we have 2 sets of blood cultures positive for likely Staphylococcus aureus, pending identification and susceptibility profile. Currently, Mr. Torre is awake. He is pleasant. He denies any headaches. No visual symptoms, sore throat, odynophagia, or dysphagia. He denies any dyspnea or chest pain right now. No abdominal pain. He is voiding without difficulty. No diarrhea. He had some low back pain, but he blames the bed for that, did not have it before he was admitted to the hospital. No joint symptoms outside that area. PAST MEDICAL HISTORY: Ischemic cardiomyopathy, three-vessel coronary artery disease managed medically, AICD placement, chronic smoking, previously diagnosed seizure disorder although this has a somewhat questionable documentation, and type 2 diabetes with A1c of 10. He has a longstanding history of smoking. He has had appendectomy in the past. FAMILY HISTORY: Hypertension. SOCIAL HISTORY: He works for [employer], who [place] in [place]. He does not drink any alcoholic beverages. PHYSICAL EXAMINATION: VITAL SIGNS: The T-max 99, blood pressure 109/66, heart rate 97, and O2 saturation is 98 on 1 L/minute. SKIN: With a few areas of excoriation. He has had areas of end bite hines noted. He has peripheral IV access. The AICD pocket site appears normal without any fluid or erythema. No lymphadenopathy. HEENT: Ocular movements conjugate. Oral cavity with still quite a few teeth in place with some decay and gum disease. Oral mucosa is normal. NECK: Supple. No jugular vein distention. No back tenderness. HEART: S1 and S2. Regular rate. Markedly diminished heart sounds. LUNGS: Sounds appear clear without crackles or wheezing. ABDOMEN: Soft, not distended or tender. No ascites. No bladder distention. EXTREMITIES: No joint inflammatory activity. No edema. Pulses 1+ in dorsalis pedis. Plantar responses are flexor. He moves all extremities equally. NEUROLOGIC: He is awake, oriented, and follows commands. Speech is normal. Recollection is good. LABORATORY DATA: The latest lab data; white cell count 9.5, hemoglobin 14, platelets 99, and 87% neutrophils. His potassium 3.5. ASSESSMENT AND PLAN: Ischemic cardiomyopathy, recent automatic implantable cardioverter-defibrillator placement, now sepsis with likely Staphylococcus aureus bacteremia, pending final identification and susceptibility results. Evidently, could be a coagulase-negative Staph as well, but we will wait for the final identification. This could reflect colonization of the automatic implantable cardioverter-defibrillator or endocarditis. Other sites of involvement are not apparent at this time. We will leave him on this current regimen until we have the final identification of the organism and then deescalate accordingly. He probably will need a transesophageal echocardiogram depending on the final identification of the organism and will likely require long-term antimicrobial therapy administration. Evidently, if the leads are involved, then the device would have to be extracted. Job ID: [id number]
[2020-09-14] MEDS: Vancomycin 1.5 GRAM/300 ML BAG 1.5 GM in Premix Bag 1 BAG IVPB SCH (19:09)
[2020-09-14] MEDS: Atorvastatin Calcium 40 MG TAB PO SCH (21:24)
[2020-09-15] MEDS: Cefepime 2 GM in Sodium Chloride 0.9% 100 ML IVPB SCH ×2 (02:38→14:46)
[2020-09-15] MEDS: HYDROcodone/Acetaminophen 5/325 mg Tablet PO PRN ×2 (02:43→16:30)
[2020-09-15 04:00] LABS: Hemoglobin 13.6 g/dL (14.0-18.0); Platelet Count 95 thou/uL (130-400)
[2020-09-15 04:31] LABS: Calc. Creatinine Clearance 120 mL/min (70-130); Cholesterol 75 mg/dl (< 200 Desired); Estimated GFR-MDRD Greater than 90; HDL Cholesterol Less than 8 mg/dL (>60 Neg Risk); Triglycerides 195 mg/dL (Less than 150)
[2020-09-15 04:37] LABS: Cardiac Risk TEST NOT PERFORMED (Less than 4.5)
[2020-09-15] MEDS ORDERED: Potassium Chloride 20 MEQ TAB PO SCH (06:30)
[2020-09-15] MEDS: HumaLOG 300 UNITS/3 ML VIAL SC PRN ×3 (06:35→17:39)
[2020-09-15] MEDS: Sodium Chloride 0.9% 1,000 ML IV SCH ×2 (06:41→17:41)
[2020-09-15] MEDS: Amiodarone 200 MG TAB PO SCH ×2 (08:28→21:58)
[2020-09-15] MEDS: metFORMIN 500 MG TAB PO SCH ×2 (08:28→16:30)
[2020-09-15] MEDS: Furosemide 20 MG TAB PO SCH (08:28)
[2020-09-15] MEDS: levETIRAcetam 500 MG TAB PO SCH ×2 (08:29→21:57)
[2020-09-15] MEDS: Famotidine 20 MG TAB PO SCH ×2 (08:29→22:00)
[2020-09-15] MEDS: Aspirin Chewable 81 MG TAB PO SCH (08:29)
[2020-09-15] MEDS: Lisinopril 2.5 MG TAB PO SCH (08:29)
[2020-09-15] MEDS: Carvedilol 3.125 MG TAB PO SCH ×2 (08:29→16:30)
[2020-09-15 09:43] LABS: Anion Gap 12 mmol/L (10-20); BUN (Urea Nitrogen) 11 mg/dL (8.4-25.7); Calc. Creatinine Clearance 130 mL/min (70-130); Calcium 7.8 mg/dL (7.8-10.44); Carbon Dioxide 27 mmol/L (23-31); Chloride 98 mmol/L (98-107); Estimated GFR-MDRD Greater than 90; Glucose 209 mg/dL (80-115); Potassium 3.3 mmol/L (3.5-5.1); Sodium 134 mmol/L (136-145)
--- NOTE | 2020-09-15 12:47 | PDOC.HOSPP ---
- Subjective Encounter Date: 09/15/20 Encounter Time: 11:15 Subjective: no sob or chest pain or palp feels better no fever is ambulating in room - Objective Vital Signs & Weight: Vital Signs (12 hours) Temp Pulse Pulse Resp BP BP BP 09/15/20 11:29 97.5 F L 75 16 98/60 09/15/20 09:03 80 104/63 09/15/20 08:09 09/15/20 07:35 98.0 F 86 16 101/51 L 09/15/20 03:46 97.2 F L 83 18 109/58 L Pulse Ox 09/15/20 11:29 100 09/15/20 09:03 09/15/20 08:09 98 09/15/20 07:35 92 L 09/15/20 03:46 92 L Weight Weight 214 lb 6.4 oz Most Recent Monitor Data Heart Rate from ECG 87 NIBP 127/67 NIBP BP-Mean 87 Respiration from ECG 19 SpO2 97 I&O: 09/14/20 09/15/20 09/16/20 06:59 06:59 06:59 Intake Total 1590 1896 Output Total 1200 1650 Balance 390 246 Result Diagrams: 09/15/20 03:16 09/15/20 09:05 Additional Labs: Accuchecks 09/15/20 09/15/20 09/14/20 10:33 05:22 21:17 POC Glucose 234 H 165 H 236 H Hospitalist ROS - Medication Medications: Active Medications Generic Name Dose Route Start Last Admin Trade Name Freq PRN Reason Stop Dose Admin Hydrocodone Bitart/Acetaminophen 1 tab 09/13/20 17:14 09/15/20 02:43 Hydrocodone/Acetaminophen 5/325 Mg Tablet PO 1 tab Q4H PRN Administration Moderate Pain (4-6) Amiodarone HCl 400 mg 09/13/20 21:00 09/15/20 08:28 Amiodarone 200 Mg Tab PO 09/18/20 21:01 400 mg BID AUDREY Administration Aspirin 81 mg 09/14/20 09:00 09/15/20 08:29 Aspirin Chewable 81 Mg Tab PO 81 mg DAILY AUDREY Administration Atorvastatin Calcium 40 mg 09/13/20 21:00 09/14/20 21:24 Atorvastatin Calcium 40 Mg Tab PO 40 mg HS AUDREY Administration Carvedilol 1.5625 mg 09/14/20 08:00 09/15/20 08:29 Carvedilol 3.125 Mg Tab PO 1.5625 mg BID-WM AUDREY Administration Furosemide 20 mg 09/14/20 09:00 09/15/20 08:28 Furosemide 20 Mg Tab PO 20 mg DAILY AUDREY Administration Vancomycin HCl 1.5 gm/ Device 300 mls @ 200 mls/hr 09/14/20 15:00 09/14/20 19:09 IVPB 300 mls 1500 AUDREY Administration Cefepime HCl 2 gm/ Sodium 100 mls @ 200 mls/hr 09/14/20 02:00 09/15/20 02:38 Chloride IVPB 100 mls 0200,1400 AUDREY Administration Sodium Chloride 1,000 mls @ 100 mls/hr 09/14/20 07:55 09/15/20 06:41 Normal Saline 0.9% IV 1,000 mls .Q10H AUDREY Administration Insulin Human Lispro 0 units 09/13/20 17:23 09/15/20 12:09 Humalog 300 Units/3 Ml Vial SC 4 unit .MODERATE SLIDING SC PRN Administration Moderate Correctional Scale Levetiracetam 500 mg 09/13/20 21:00 09/15/20 08:29 Levetiracetam 500 Mg Tab PO 500 mg BID AUDREY Administration Lisinopril 2.5 mg 09/14/20 09:00 09/15/20 08:29 Lisinopril 2.5 Mg Tab PO 2.5 mg DAILY AUDREY Administration Metformin HCl 500 mg 09/14/20 08:00 09/15/20 08:28 Metformin 500 Mg Tab PO 500 mg BID-WM AUDREY Administration Rivaroxaban 20 mg 09/14/20 17:00 09/14/20 17:48 Rivaroxaban 10 Mg Tab PO 20 mg 1700 AUDREY Administration Sodium Chloride 10 ml 09/14/20 21:00 09/15/20 09:53 Flush - Normal Saline 10 Ml Syringe IVF 10 ml Q12HR AUDREY Administration - Exam General Appearance: awake alert Eye: PERRL, anicteric sclera ENT: no oropharyngeal lesions, moist mucosa Neck: supple, no JVD Heart: RRR, no murmur Respiratory: no wheezes, no rales, rhonchi Gastrointestinal: soft, non-tender, non-distended, normal bowel sounds Extremities: no cyanosis, no edema Neurological: cranial nerve grossly intact, no focal deficits Psychiatric: normal affect, A&O x 3 Hosp A/P (1) Bacteremia Code(s): R78.81 - BACTEREMIA Status: Acute (2) WILL (acute kidney injury) Code(s): N17.9 - ACUTE KIDNEY FAILURE, UNSPECIFIED Status: Resolved (3) Rhabdomyolysis Code(s): M62.82 - RHABDOMYOLYSIS Status: Acute Qualifiers: Rhabdomyolysis type: non-traumatic Qualified Code(s): M62.82 - Rhabdomyolysis (4) Sepsis Code(s): A41.9 - SEPSIS, UNSPECIFIED ORGANISM Status: Acute Qualifiers: Sepsis type: methicillin susceptible Staphylococcus aureus Severe sepsis shock status: without septic shock (5) UTI (urinary tract infection) Status: Acute Qualifiers: Urinary tract infection type: acute cystitis Hematuria presence: without hematuria Qualified Code(s): N30.00 - Acute cystitis without hematuria (6) Cardiomyopathy Code(s): I42.9 - CARDIOMYOPATHY, UNSPECIFIED Status: Chronic Qualifiers: Cardiomyopathy type: unspecified Qualified Code(s): I42.9 - Cardiomyopathy, unspecified (7) Diabetes mellitus Code(s): E11.9 - TYPE 2 DIABETES MELLITUS WITHOUT COMPLICATIONS Status: Chronic Qualifiers: Diabetes mellitus type: type 2 Diabetes mellitus intermodal dispatcher insulin use: without fdc use (8) Wide-complex tachycardia Code(s): I47.2 - VENTRICULAR TACHYCARDIA Status: Suspected - Plan is on amiodarone, iv fluids, cefepime and vanc await full cultures results, is growing staph aureus 2/2 CT chest, abd and pelvis shows no obvious source likely infection source is his skin?/aicd echo, may need ILYA if tte is -ve for veg CT brain showed lesions s/o MS? or severe chr isch changes is on asp, lipitor, coreg, keppra, lisinopril, metformin, xarelto hemostable
[2020-09-15] MEDS: Rivaroxaban 10 MG TAB PO SCH (16:29)
[2020-09-15] MEDS: Vancomycin 1.5 GRAM/300 ML BAG 1.5 GM in Premix Bag 1 BAG IVPB SCH (16:31)
[2020-09-15] MEDS: Atorvastatin Calcium 40 MG TAB PO SCH (21:58)
[2020-09-16] MEDS: Cefepime 2 GM in Sodium Chloride 0.9% 100 ML IVPB SCH ×2 (02:26→14:32)
[2020-09-16] MEDS: Sodium Chloride 0.9% 1,000 ML IV SCH ×3 (02:28→22:51)
[2020-09-16 04:41] LABS: #Lymphocytes 0.7 thou/uL (1.20-3.40); #Monocytes 0.8 thou/uL (0.11-0.59); #Neutrophils 4.5 thou/uL (1.40-6.50); %Basophils 0.7 % (0.0-1.0); %Eosinophils 0.7 % (0.0-10.0); %Lymphocytes 10.8 % (21.0-51.0); %Monocytes 12.9 % (0.0-10.0); %Neutrophils 74.9 % (42.0-75.0); Hemoglobin 12.7 g/dL (14.0-18.0); Mean Corpuscular HGB CONC 34.1 g/dL (32.0-36.0); Mean Corpuscular Hemoglobin 28.5 pg (27.0-31.0); Mean Corpuscular Volume 83.8 fL (78.0-98.0); Mean Platelet Volume 9.3 fL (7.4-10.4); Platelet Count 109 thou/uL (130-400); RBC Distribution Width 13.2 % (11.5-14.5); Red Blood Cell (RBC) Count 4.45 mill/uL (4.70-6.10)
[2020-09-16 05:00] LABS: Anion Gap 12 mmol/L (10-20); BUN (Urea Nitrogen) 11 mg/dL (8.4-25.7); Calc. Creatinine Clearance 131 mL/min (70-130); Calcium 7.8 mg/dL (7.8-10.44); Carbon Dioxide 24 mmol/L (23-31); Chloride 101 mmol/L (98-107); Estimated GFR-MDRD Greater than 90; Glucose 242 mg/dL (80-115); Potassium 3.3 mmol/L (3.5-5.1); Sodium 134 mmol/L (136-145)
[2020-09-16] MEDS: HumaLOG 300 UNITS/3 ML VIAL SC PRN ×2 (06:29→16:41)
[2020-09-16] MEDS ORDERED: Potassium Chloride 20 MEQ TAB PO SCH (06:45)
[2020-09-16] MEDS: metFORMIN 500 MG TAB PO SCH ×2 (08:46→16:43)
[2020-09-16] MEDS: levETIRAcetam 500 MG TAB PO SCH ×2 (08:46→22:50)
[2020-09-16] MEDS: Lisinopril 2.5 MG TAB PO SCH (08:47)
[2020-09-16] MEDS: Amiodarone 200 MG TAB PO SCH ×2 (08:47→22:50)
[2020-09-16] MEDS: Carvedilol 3.125 MG TAB PO SCH ×2 (08:47→16:43)
[2020-09-16] MEDS: Aspirin Chewable 81 MG TAB PO SCH (08:48)
[2020-09-16] MEDS: Famotidine 20 MG TAB PO SCH ×2 (08:49→22:51)
[2020-09-16] MEDS: Furosemide 20 MG TAB PO SCH (08:49)
[2020-09-16] MEDS ORDERED: PROPOFOL 200 MG/20 ML VIAL ONE (11:16)
--- NOTE | 2020-09-16 12:42 | PDOC.HOSPP ---
- Subjective Encounter Date: 09/16/20 Encounter Time: 11:15 Subjective: feels better is npo for ilya amb in room, no chest pain or palp or sob - Objective Vital Signs & Weight: Vital Signs (12 hours) Temp Pulse Pulse Pulse Resp BP BP 09/16/20 11:58 98.0 F 73 14 09/16/20 11:17 73 74 107/63 114/64 09/16/20 07:51 09/16/20 07:44 99.1 F 80 16 09/16/20 05:27 09/16/20 04:45 97.6 F 80 18 BP Pulse Ox 09/16/20 11:58 107/63 93 L 09/16/20 11:17 09/16/20 07:51 93 L 09/16/20 07:44 112/61 93 L 09/16/20 05:27 93 L 09/16/20 04:45 121/66 93 L Weight Weight 221 lb Most Recent Monitor Data Heart Rate from ECG 87 NIBP 127/67 NIBP BP-Mean 87 Respiration from ECG 19 SpO2 97 I&O: 09/15/20 09/16/20 09/17/20 06:59 06:59 06:59 Intake Total 1896 3850 Output Total 1650 1800 Balance 246 2049 Result Diagrams: 09/16/20 04:07 09/16/20 04:07 Additional Labs: Accuchecks 09/16/20 09/16/20 09/15/20 10:34 05:46 20:07 POC Glucose 202 H 241 H 196 H 09/15/20 16:48 POC Glucose 238 H Hospitalist ROS - Medication Medications: Active Medications Generic Name Dose Route Start Last Admin Trade Name Freq PRN Reason Stop Dose Admin Hydrocodone Bitart/Acetaminophen 1 tab 09/13/20 17:14 09/15/20 16:30 Hydrocodone/Acetaminophen 5/325 Mg Tablet PO 1 tab Q4H PRN Administration Moderate Pain (4-6) Amiodarone HCl 400 mg 09/13/20 21:00 09/16/20 08:47 Amiodarone 200 Mg Tab PO 09/18/20 21:01 400 mg BID AUDREY Administration Aspirin 81 mg 09/14/20 09:00 09/16/20 08:48 Aspirin Chewable 81 Mg Tab PO 81 mg DAILY AUDREY Administration Atorvastatin Calcium 40 mg 09/13/20 21:00 09/15/20 21:58 Atorvastatin Calcium 40 Mg Tab PO 40 mg HS AUDREY Administration Carvedilol 1.5625 mg 09/14/20 08:00 09/16/20 08:47 Carvedilol 3.125 Mg Tab PO 1.5625 mg BID-WM AUDREY Administration Famotidine 20 mg 09/15/20 21:00 09/16/20 08:49 Famotidine 20 Mg Tab PO 20 mg BID AUDREY Administration Furosemide 20 mg 09/14/20 09:00 09/16/20 08:49 Furosemide 20 Mg Tab PO 20 mg DAILY AUDREY Administration Vancomycin HCl 1.5 gm/ Device 300 mls @ 200 mls/hr 09/14/20 15:00 09/15/20 16:31 IVPB 300 mls 1500 AUDREY Administration Cefepime HCl 2 gm/ Sodium 100 mls @ 200 mls/hr 09/14/20 02:00 09/16/20 02:26 Chloride IVPB 100 mls 0200,1400 AUDREY Administration Sodium Chloride 1,000 mls @ 100 mls/hr 09/14/20 07:55 09/16/20 02:28 Normal Saline 0.9% IV 1,000 mls .Q10H AUDREY Administration Insulin Human Lispro 0 units 09/13/20 17:23 09/16/20 06:29 Humalog 300 Units/3 Ml Vial SC 4 unit .MODERATE SLIDING SC PRN Administration Moderate Correctional Scale Levetiracetam 500 mg 09/13/20 21:00 09/16/20 08:46 Levetiracetam 500 Mg Tab PO 500 mg BID AUDREY Administration Lisinopril 2.5 mg 09/14/20 09:00 09/16/20 08:47 Lisinopril 2.5 Mg Tab PO 2.5 mg DAILY AUDREY Administration Metformin HCl 500 mg 09/14/20 08:00 09/16/20 08:46 Metformin 500 Mg Tab PO 500 mg BID-WM AUDREY Administration Rivaroxaban 20 mg 09/14/20 17:00 09/15/20 16:29 Rivaroxaban 10 Mg Tab PO 20 mg 1700 AUDREY Administration Sodium Chloride 10 ml 09/14/20 21:00 09/16/20 09:59 Flush - Normal Saline 10 Ml Syringe IVF Not Given Q12HR AUDREY - Exam General Appearance: awake alert Eye: PERRL, anicteric sclera ENT: no oropharyngeal lesions, moist mucosa Neck: supple, no JVD Heart: RRR, no murmur Respiratory: no wheezes, no rales Gastrointestinal: soft, non-tender, non-distended, normal bowel sounds Extremities: no cyanosis, no edema Neurological: cranial nerve grossly intact, no focal deficits Psychiatric: normal affect, A&O x 3 Hosp A/P (1) Bacteremia Code(s): R78.81 - BACTEREMIA Status: Acute (2) WILL (acute kidney injury) Code(s): N17.9 - ACUTE KIDNEY FAILURE, UNSPECIFIED Status: Resolved (3) Rhabdomyolysis Code(s): M62.82 - RHABDOMYOLYSIS Status: Resolved Qualifiers: Rhabdomyolysis type: non-traumatic Qualified Code(s): M62.82 - Rhabdomyolysis (4) Sepsis Code(s): A41.9 - SEPSIS, UNSPECIFIED ORGANISM Status: Acute Qualifiers: Sepsis type: methicillin susceptible Staphylococcus aureus Severe sepsis shock status: without septic shock (5) UTI (urinary tract infection) Status: Acute Qualifiers: Urinary tract infection type: acute cystitis Hematuria presence: without hematuria Qualified Code(s): N30.00 - Acute cystitis without hematuria (6) Cardiomyopathy Code(s): I42.9 - CARDIOMYOPATHY, UNSPECIFIED Status: Chronic Qualifiers: Cardiomyopathy type: unspecified Qualified Code(s): I42.9 - Cardiomyopathy, unspecified (7) Diabetes mellitus Code(s): E11.9 - TYPE 2 DIABETES MELLITUS WITHOUT COMPLICATIONS Status: Chronic Qualifiers: Diabetes mellitus type: type 2 Diabetes mellitus fdc insulin use: without local intermodal truck driver use (8) Wide-complex tachycardia Code(s): I47.2 - VENTRICULAR TACHYCARDIA Status: Suspected - Plan is on amiodarone, cefepime and vanc has mssa bacteremia 2/2, for ILYA today, transthoracic echo did not reveal obvious veg. CT chest, abd and pelvis shows no obvious source likely infection source is his skin?/aicd CT brain showed lesions s/o MS? or severe chr isch changes is on asp, lipitor, coreg, keppra, lisinopril, metformin, xarelto hemostable
--- NOTE | 2020-09-16 14:53 | OP ---
DATE OF PROCEDURE: 09/16/2020 PROCEDURE PERFORMED: Transesophageal echocardiogram. INDICATIONS: A 70-year-old gentleman with paroxysmal atrial fibrillation. DESCRIPTION OF PROCEDURE: The patient was taken to the PACU. The patient was sedated by Anesthesiology. A transesophageal probe was placed in the distal esophagus and stomach. Echocardiographic images were obtained. The transesophageal probe was removed. FINDINGS: 1. Severe decrease in left ventricular systolic function. 2. Normal mitral and aortic valves. 3. [id number] mitral regurgitation. 4. Mild tricuspid regurgitation. 5. Defibrillator noted in the right ventricle. 6. No vegetations noted on the aortic, mitral, or tricuspid valves. 7. No vegetations were noted on the defibrillator wires. IMPRESSION: No vegetation noted on the defibrillator wires or cardiac valves. Job ID: [id number] [facility]
[2020-09-16] MEDS: Vancomycin 1.5 GRAM/300 ML BAG 1.5 GM in Premix Bag 1 BAG IVPB SCH ×2 (15:39→15:45)
[2020-09-16] MEDS: Rivaroxaban 10 MG TAB PO SCH (16:43)
[2020-09-16] MEDS: HYDROcodone/Acetaminophen 5/325 mg Tablet PO PRN (22:50)
[2020-09-16] MEDS: Atorvastatin Calcium 40 MG TAB PO SCH (22:50)
[2020-09-17] MEDS: Cefepime 2 GM in Sodium Chloride 0.9% 100 ML IVPB SCH ×2 (02:48→15:16)
[2020-09-17] MEDS: Vancomycin 1.5 GRAM/300 ML BAG 1.5 GM in Premix Bag 1 BAG IVPB SCH ×2 (04:44→16:34)
[2020-09-17 05:18] LABS: Anion Gap 12 mmol/L (10-20); BUN (Urea Nitrogen) 11 mg/dL (8.4-25.7); Calc. Creatinine Clearance 121 mL/min (70-130); Calcium 8.3 mg/dL (7.8-10.44); Carbon Dioxide 30 mmol/L (23-31); Chloride 100 mmol/L (98-107); Estimated GFR-MDRD Greater than 90; Glucose 289 mg/dL (80-115); Sodium 138 mmol/L (136-145)
[2020-09-17 06:27] LABS: Band 10 % (5-11); Hemoglobin 12.8 g/dL (14.0-18.0); Lymphocytes 17 % (21-51); MDiff Complete? YES; Mean Corpuscular HGB CONC 34.4 g/dL (32.0-36.0); Mean Corpuscular Hemoglobin 28.9 pg (27.0-31.0); Mean Corpuscular Volume 84.1 fL (78.0-98.0); Mean Platelet Volume 9.1 fL (7.4-10.4); Monocytes 9 % (0-10); Neutrophil 63 % (42-75); Platelet Count 119 thou/uL (130-400); Platelet Morphology Comment Appears Decreased; RBC Distribution Width 13.3 % (11.5-14.5); Reactive Lymphocytes 1 % (0-10); Red Blood Cell (RBC) Count 4.43 mill/uL (4.70-6.10); White Blood Cell (WBC) Count 6.2 thou/uL (4.8-10.8)
[2020-09-17] MEDS: HumaLOG 300 UNITS/3 ML VIAL SC PRN ×3 (06:34→17:02)
[2020-09-17] MEDS: Lisinopril 2.5 MG TAB PO SCH (09:25)
[2020-09-17] MEDS: Famotidine 20 MG TAB PO SCH ×2 (09:25→22:04)
[2020-09-17] MEDS: Aspirin Chewable 81 MG TAB PO SCH (09:25)
[2020-09-17] MEDS: Amiodarone 200 MG TAB PO SCH ×2 (09:26→22:04)
[2020-09-17] MEDS: metFORMIN 500 MG TAB PO SCH ×2 (09:26→16:33)
[2020-09-17] MEDS: Furosemide 20 MG TAB PO SCH (09:26)
[2020-09-17] MEDS: Carvedilol 3.125 MG TAB PO SCH ×2 (09:26→16:33)
[2020-09-17] MEDS: levETIRAcetam 500 MG TAB PO SCH ×2 (09:27→22:04)
[2020-09-17] MEDS: Sodium Chloride 0.9% 1,000 ML IV SCH ×2 (09:31→16:46)
--- NOTE | 2020-09-17 14:02 | PDOC.HOSPP ---
- Subjective Encounter Date: 09/17/20 Encounter Time: 11:30 Subjective: no fever, sob or chest pain feels good has no c/o pain in his spine, no wounds on her buttocks no cough - Objective Vital Signs & Weight: Vital Signs (12 hours) Temp Pulse Pulse Pulse Resp BP BP 09/17/20 11:21 98.2 F 63 12 09/17/20 10:00 71 65 145/80 H 122/70 09/17/20 07:45 98.4 F 71 12 09/17/20 07:33 09/17/20 05:51 98.3 F 71 14 09/17/20 05:37 BP BP Pulse Ox Pulse Ox Pulse Ox 09/17/20 11:21 116/58 L 99 09/17/20 10:00 99 97 09/17/20 07:45 121/68 96 09/17/20 07:33 96 09/17/20 05:51 113/58 L 92 L 09/17/20 05:37 92 L Weight Weight 221 lb Most Recent Monitor Data Heart Rate from ECG 87 NIBP 127/67 NIBP BP-Mean 87 Respiration from ECG 19 SpO2 97 I&O: 09/16/20 09/17/20 09/18/20 06:59 06:59 06:59 Intake Total 3850 2700 Output Total 1800 1150 Balance 2050 1550 Result Diagrams: 09/17/20 04:38 09/17/20 04:38 Additional Labs: Accuchecks 09/17/20 09/17/20 09/16/20 11:08 06:18 20:29 POC Glucose 236 H 271 H 214 H Hospitalist ROS - Medication Medications: Active Medications Generic Name Dose Route Start Last Admin Trade Name Freq PRN Reason Stop Dose Admin Hydrocodone Bitart/Acetaminophen 1 tab 09/13/20 17:14 09/16/20 22:50 Hydrocodone/Acetaminophen 5/325 Mg Tablet PO 1 tab Q4H PRN Administration Moderate Pain (4-6) Amiodarone HCl 400 mg 09/13/20 21:00 09/17/20 09:26 Amiodarone 200 Mg Tab PO 09/18/20 21:01 400 mg BID AUDREY Administration Aspirin 81 mg 09/14/20 09:00 09/17/20 09:25 Aspirin Chewable 81 Mg Tab PO 81 mg DAILY AUDREY Administration Atorvastatin Calcium 40 mg 09/13/20 21:00 09/16/20 22:50 Atorvastatin Calcium 40 Mg Tab PO 40 mg HS AUDREY Administration Carvedilol 1.5625 mg 09/14/20 08:00 09/17/20 09:26 Carvedilol 3.125 Mg Tab PO 1.5625 mg BID-WM AUDREY Administration Famotidine 20 mg 09/15/20 21:00 09/17/20 09:25 Famotidine 20 Mg Tab PO 20 mg BID AUDREY Administration Furosemide 20 mg 09/14/20 09:00 09/17/20 09:26 Furosemide 20 Mg Tab PO 20 mg DAILY AUDREY Administration Cefepime HCl 2 gm/ Sodium 100 mls @ 200 mls/hr 09/14/20 02:00 09/17/20 02:48 Chloride IVPB 100 mls 0200,1400 AUDREY Administration Sodium Chloride 1,000 mls @ 100 mls/hr 09/14/20 07:55 09/17/20 09:31 Normal Saline 0.9% IV Not Given .Q10H AUDREY Vancomycin HCl 1.5 gm/ Device 300 mls @ 200 mls/hr 09/16/20 16:00 09/17/20 04:44 IVPB 300 mls 0400,1600 AUDREY Administration Insulin Human Lispro 0 units 09/13/20 17:23 09/17/20 12:27 Humalog 300 Units/3 Ml Vial SC 4 unit .MODERATE SLIDING SC PRN Administration Moderate Correctional Scale Levetiracetam 500 mg 09/13/20 21:00 09/17/20 09:27 Levetiracetam 500 Mg Tab PO 500 mg BID AUDREY Administration Lisinopril 2.5 mg 09/14/20 09:00 09/17/20 09:25 Lisinopril 2.5 Mg Tab PO 2.5 mg DAILY AUDREY Administration Metformin HCl 500 mg 09/14/20 08:00 09/17/20 09:26 Metformin 500 Mg Tab PO 500 mg BID-WM AUDREY Administration Rivaroxaban 20 mg 09/14/20 17:00 09/16/20 16:43 Rivaroxaban 10 Mg Tab PO 20 mg 1700 AUDREY Administration Sodium Chloride 10 ml 09/14/20 21:00 09/17/20 09:27 Flush - Normal Saline 10 Ml Syringe IVF Not Given Q12HR AUDREY - Exam General Appearance: awake alert Eye: PERRL, anicteric sclera ENT: no oropharyngeal lesions, moist mucosa Neck: supple, no JVD Heart: RRR, no murmur Respiratory: no wheezes, no rales Gastrointestinal: soft, non-tender, non-distended, normal bowel sounds Extremities: no cyanosis, no edema Neurological: cranial nerve grossly intact, no focal deficits Psychiatric: normal affect, A&O x 3 Hosp A/P (1) Bacteremia Code(s): R78.81 - BACTEREMIA Status: Acute (2) WILL (acute kidney injury) Code(s): N17.9 - ACUTE KIDNEY FAILURE, UNSPECIFIED Status: Resolved (3) Rhabdomyolysis Code(s): M62.82 - RHABDOMYOLYSIS Status: Resolved Qualifiers: Rhabdomyolysis type: non-traumatic Qualified Code(s): M62.82 - Rhabdomyolysis (4) Sepsis Code(s): A41.9 - SEPSIS, UNSPECIFIED ORGANISM Status: Acute Qualifiers: Sepsis type: methicillin susceptible Staphylococcus aureus Severe sepsis shock status: without septic shock (5) UTI (urinary tract infection) Status: Acute Qualifiers: Urinary tract infection type: acute cystitis Hematuria presence: without hematuria Qualified Code(s): N30.00 - Acute cystitis without hematuria (6) Cardiomyopathy Code(s): I42.9 - CARDIOMYOPATHY, UNSPECIFIED Status: Chronic Qualifiers: Cardiomyopathy type: unspecified Qualified Code(s): I42.9 - Cardiomyopathy, unspecified (7) Diabetes mellitus Code(s): E11.9 - TYPE 2 DIABETES MELLITUS WITHOUT COMPLICATIONS Status: Chronic Qualifiers: Diabetes mellitus type: type 2 Diabetes mellitus [facility] insulin use: without [facility] use (8) Wide-complex tachycardia Code(s): I47.2 - VENTRICULAR TACHYCARDIA Status: Suspected - Plan is on ancef q8h till 10/11, weekly labs per will need outpt antibiotic to be set up, PICC line has mssa bacteremia 2/2, ILYA and transthoracic echo did not reveal obvious veg. CT chest, abd and pelvis shows no obvious source likely infection source is his skin? CT brain showed lesions s/o MS? or severe chr isch changes is on asp, lipitor, coreg, keppra, lisinopril, metformin, xarelto hemostable May dc once outpt antibiotics and PICC line is placed
--- NOTE | 2020-09-17 14:27 | PRG ---
DATE OF SERVICE: 09/17/2020 SUBJECTIVE: Mr. Torre feels better. No dyspnea or chest pain. No back pain. No abdominal pain or diarrhea. OBJECTIVE: VITAL SIGNS: Normal temperature, BP 116/58, heart rate 63, O2 saturation 99% on 2 L. GENERAL: The patient appears in no distress, alert. NECK: Supple. LUNGS: Symmetric. Clear breath sounds. HEART: S1, S2 without murmurs. ABDOMEN: Soft. Not distended. NEURO: Nonfocal. LABORATORY DATA: Labs showed white cell count 6.2, hemoglobin 12.8, platelets 119. Creatinine 0.82. Microbiology with methicillin-sensitive Staphylococcus aureus identified. The patient had a ILYA, which was performed by Dr. Moore and showed severe decrease in LV function, normal mitral and aortic valves, [id number] mitral regurg, defibrillator noted in the right ventricle. No vegetations noted. ASSESSMENT AND DISCUSSION: Ischemic cardiomyopathy, recent defibrillator implantation, sepsis due to MSSA. Even though the ILYA was normal, we will pursue 4 weeks of IV cefazolin through a PICC line. Place orders for Case Management. If he may experience recurrence of this bacteremia in that case, the AICD may have to be removed. ILYA is reassuring regarding the absence of obvious vegetation or perivalvular abscess or other complications, so I think treating with antimicrobials for 4 weeks would be a reasonable approach for now. Job ID: [id number]
--- NOTE | 2020-09-17 15:40 | SPC ---
Left upper extremity PICC placement sonographic guided HISTORY: Sepsis. FINDINGS: After explaining the procedure and answering all questions, the left upper extremity was pr epped and draped in usual sterile fashion. Sterile technique, buffered local anesthesia, sonographic guidance, and a 22-gauge needle were used t o carefully access the left basilic vein. Standard technique was used to place the tip of a 5 [place] single lumen PICC so that the tip lies at the level of the superior vena cava. Catheter was flushed and secured externally. Patient tolerated the procedure well and was returned in unchanged condition. IMPRESSION : Left upper extremity PICC is ready for use.
[2020-09-17] MEDS: Rivaroxaban 10 MG TAB PO SCH (16:33)
[2020-09-17] MEDS: Atorvastatin Calcium 40 MG TAB PO SCH (22:05)
[2020-09-17] MEDS: HYDROcodone/Acetaminophen 5/325 mg Tablet PO PRN (22:08)
[2020-09-18] MEDS: Cefepime 2 GM in Sodium Chloride 0.9% 100 ML IVPB SCH ×2 (02:49→14:56)
[2020-09-18] MEDS: Sodium Chloride 0.9% 1,000 ML IV SCH ×2 (02:50→12:32)
[2020-09-18 04:04] LABS: #Eosinphils 0.1 thou/uL (0.0-0.7); #Monocytes 0.7 thou/uL (0.11-0.59); #Neutrophils 3.5 thou/uL (1.40-6.50); %Basophils 0.6 % (0.0-1.0); %Eosinophils 2.5 % (0.0-10.0); %Lymphocytes 19.3 % (21.0-51.0); %Monocytes 12.7 % (0.0-10.0); %Neutrophils 64.8 % (42.0-75.0); Hemoglobin 12.9 g/dL (14.0-18.0); Mean Corpuscular HGB CONC 32.6 g/dL (32.0-36.0); Mean Corpuscular Hemoglobin 28.1 pg (27.0-31.0); Mean Corpuscular Volume 86.2 fL (78.0-98.0); Mean Platelet Volume 8.6 fL (7.4-10.4); Platelet Count 170 thou/uL (130-400); RBC Distribution Width 13.4 % (11.5-14.5); Red Blood Cell (RBC) Count 4.61 mill/uL (4.70-6.10); White Blood Cell (WBC) Count 5.3 thou/uL (4.8-10.8)
[2020-09-18 04:15] LABS: Vancomycin, Trough 10.8 ug/mL
[2020-09-18] MEDS: Vancomycin 1.5 GRAM/300 ML BAG 1.5 GM in Premix Bag 1 BAG IVPB SCH (04:15)
[2020-09-18 04:17] LABS: Anion Gap 12 mmol/L (10-20); BUN (Urea Nitrogen) 9 mg/dL (8.4-25.7); Calc. Creatinine Clearance 127 mL/min (70-130); Calcium 8.2 mg/dL (7.8-10.44); Carbon Dioxide 31 mmol/L (23-31); Chloride 99 mmol/L (98-107); Estimated GFR-MDRD Greater than 90; Glucose 292 mg/dL (80-115); Potassium 3.7 mmol/L (3.5-5.1); Sodium 138 mmol/L (136-145)
[2020-09-18] MEDS: Lisinopril 2.5 MG TAB PO SCH (08:00)
[2020-09-18] MEDS: Famotidine 20 MG TAB PO SCH ×2 (08:00→21:35)
[2020-09-18] MEDS: Furosemide 20 MG TAB PO SCH (08:00)
[2020-09-18] MEDS: Aspirin Chewable 81 MG TAB PO SCH (08:00)
[2020-09-18] MEDS: metFORMIN 500 MG TAB PO SCH (08:01)
[2020-09-18] MEDS: Amiodarone 200 MG TAB PO SCH ×2 (08:01→21:36)
[2020-09-18] MEDS: levETIRAcetam 500 MG TAB PO SCH ×2 (08:01→21:36)
[2020-09-18] MEDS: Carvedilol 3.125 MG TAB PO SCH ×2 (08:01→17:12)
[2020-09-18] MEDS: HumaLOG 300 UNITS/3 ML VIAL SC PRN ×2 (11:20→17:12)
[2020-09-18] MEDS: Vancomycin HCl 1.25 GM in Sodium Chloride 0.9% 250 ML 250 ML IVPB SCH ×2 (14:56→23:22)
--- NOTE | 2020-09-18 15:43 | PDOC.HOSPP ---
- Subjective Encounter Date: 09/18/20 Encounter Time: 15:41 Subjective: Mr. Torre was seen today in follow-up of MSSA Bacteremia. He says he is beginning to feel a little better every day. No new complaints. - Objective Vital Signs & Weight: Vital Signs (12 hours) Temp Pulse Resp BP Pulse Ox 09/18/20 15:06 98.5 F 61 20 117/65 95 09/18/20 11:13 97.7 F 60 14 114/66 94 L 09/18/20 07:55 95 09/18/20 07:43 98.7 F 62 18 123/66 95 Weight Weight 221 lb Most Recent Monitor Data Heart Rate from ECG 87 NIBP 127/67 NIBP BP-Mean 87 Respiration from ECG 19 SpO2 97 I&O: 09/17/20 09/18/20 09/19/20 06:59 06:59 06:59 Intake Total 2700 2760 Output Total 1150 2710 Balance 1550 50 Result Diagrams: 09/18/20 03:10 09/18/20 03:10 Additional Labs: Accuchecks 09/18/20 09/18/20 09/17/20 10:38 05:49 20:47 POC Glucose 326 H 296 H 270 H 09/17/20 17:01 POC Glucose 189 H Hospitalist ROS - Medication Medications: Active Medications Generic Name Dose Route Start Last Admin Trade Name Freq PRN Reason Stop Dose Admin Hydrocodone Bitart/Acetaminophen 1 tab 09/13/20 17:14 09/17/20 22:08 Hydrocodone/Acetaminophen 5/325 Mg Tablet PO 1 tab Q4H PRN Administration Moderate Pain (4-6) Amiodarone HCl 400 mg 09/13/20 21:00 09/18/20 08:01 Amiodarone 200 Mg Tab PO 09/18/20 21:01 400 mg BID AUDREY Administration Aspirin 81 mg 09/14/20 09:00 09/18/20 08:00 Aspirin Chewable 81 Mg Tab PO 81 mg DAILY AUDREY Administration Atorvastatin Calcium 40 mg 09/13/20 21:00 09/17/20 22:05 Atorvastatin Calcium 40 Mg Tab PO 40 mg HS AUDREY Administration Carvedilol 1.5625 mg 09/14/20 08:00 09/18/20 08:01 Carvedilol 3.125 Mg Tab PO 1.5625 mg BID-WM AUDREY Administration Famotidine 20 mg 09/15/20 21:00 09/18/20 08:00 Famotidine 20 Mg Tab PO 20 mg BID AUDREY Administration Furosemide 20 mg 09/14/20 09:00 09/18/20 08:00 Furosemide 20 Mg Tab PO 20 mg DAILY AUDREY Administration Cefepime HCl 2 gm/ Sodium 100 mls @ 200 mls/hr 09/14/20 02:00 09/18/20 14:56 Chloride IVPB 100 mls 0200,1400 AUDREY Administration Sodium Chloride 1,000 mls @ 100 mls/hr 09/14/20 07:55 09/18/20 12:32 Normal Saline 0.9% IV Not Given .Q10H AUDREY Vancomycin HCl 1.25 gm/ Sodium 250 mls @ 166.667 mls/hr 09/18/20 14:00 09/18/20 14:56 Chloride IVPB 250 mls Q8HR AUDREY Administration Insulin Human Lispro 0 units 09/13/20 17:23 09/18/20 11:20 Humalog 300 Units/3 Ml Vial SC 8 unit .MODERATE SLIDING SC PRN Administration Moderate Correctional Scale Levetiracetam 500 mg 09/13/20 21:00 09/18/20 08:01 Levetiracetam 500 Mg Tab PO 500 mg BID AUDREY Administration Lisinopril 2.5 mg 09/14/20 09:00 09/18/20 08:00 Lisinopril 2.5 Mg Tab PO 2.5 mg DAILY AUDREY Administration Metformin HCl 500 mg 09/14/20 08:00 09/18/20 08:01 Metformin 500 Mg Tab PO 500 mg BID-WM AUDREY Administration Rivaroxaban 20 mg 09/14/20 17:00 09/17/20 16:33 Rivaroxaban 10 Mg Tab PO 20 mg 1700 AUDREY Administration Sodium Chloride 10 ml 09/14/20 21:00 09/18/20 08:02 Flush - Normal Saline 10 Ml Syringe IVF 10 ml Q12HR AUDREY Administration - Exam Eye: PERRL, anicteric sclera Heart: RRR, no gallops, no rubs, normal peripheral pulses, murmur present, II/IV Respiratory: CTAB, no wheezes, no rales, no ronchi, normal chest expansion, no tachypnea, normal percussion Gastrointestinal: soft, non-tender, non-distended, normal bowel sounds, no palpable masses, no hepatomegaly Extremities: 1+ LE edema (trace pedal edema) Hosp A/P (1) MSSA bacteremia Code(s): R78.81 - BACTEREMIA; B95.61 - METHICILLIN SUSCEP STAPH INFCT CAUSING DIS CLASSD ELSWHR Status: Acute (2) Cardiomyopathy Code(s): I42.9 - CARDIOMYOPATHY, UNSPECIFIED Status: Chronic Qualifiers: Cardiomyopathy type: unspecified Qualified Code(s): I42.9 - Cardiomyopathy, unspecified (3) Diabetes mellitus Code(s): E11.9 - TYPE 2 DIABETES MELLITUS WITHOUT COMPLICATIONS Status: Chronic Qualifiers: Diabetes mellitus type: type 2 Diabetes mellitus terminal supervisor insulin use: without terminal supervisor use - Plan * MSSA Bacteremia- continue Cefepime, and the plan is to transition him to IV Ancef * DM- blood glucose is elevated- will titrate the dose of Glucophage * HTN- blood pressure is stable * Cardiomyopathy- compensated
--- NOTE | 2020-09-18 16:29 | EKG ---
Test Reason : Blood Pressure : / mmHG Vent. Rate : 113 BPM Atrial Rate : 113 BPM P-R Int : 082 ms QRS Dur : 202 ms QT Int : 434 ms P-R-T Axes : 091 -65 100 degrees QTc Int : 595 ms Electronic ventricular pacemaker Confirmed by GIANNA KLEIN DO ([id number]), image editor ARJUN BLANKENSHIP ([id number]) on 09/18/2020 4:28:44 PM Referred By: Confirmed By:GIANNA KLEIN DO
[2020-09-18] MEDS: Rivaroxaban 10 MG TAB PO SCH (17:12)
[2020-09-18] MEDS: metFORMIN 850 MG TAB PO SCH (17:12)
[2020-09-18] MEDS: Atorvastatin Calcium 40 MG TAB PO SCH (21:35)
[2020-09-18] MEDS: HYDROcodone/Acetaminophen 5/325 mg Tablet PO PRN (23:42)
[2020-09-19] MEDS: Cefepime 2 GM in Sodium Chloride 0.9% 100 ML IVPB SCH ×2 (02:47→13:46)
[2020-09-19] MEDS: Vancomycin HCl 1.25 GM in Sodium Chloride 0.9% 250 ML 250 ML IVPB SCH ×3 (06:30→22:01)
[2020-09-19] MEDS: HumaLOG 300 UNITS/3 ML VIAL SC PRN ×3 (06:57→17:12)
[2020-09-19] MEDS: levETIRAcetam 500 MG TAB PO SCH ×2 (08:46→20:47)
[2020-09-19] MEDS: Carvedilol 3.125 MG TAB PO SCH ×2 (08:46→17:13)
[2020-09-19] MEDS: Furosemide 20 MG TAB PO SCH (08:46)
[2020-09-19] MEDS: Lisinopril 2.5 MG TAB PO SCH (08:47)
[2020-09-19] MEDS: Aspirin Chewable 81 MG TAB PO SCH (08:47)
[2020-09-19] MEDS: Amiodarone 200 MG TAB PO SCH ×2 (08:47→20:48)
[2020-09-19] MEDS: Famotidine 20 MG TAB PO SCH ×2 (08:47→20:47)
[2020-09-19] MEDS: metFORMIN 850 MG TAB PO SCH ×2 (08:48→17:13)
--- NOTE | 2020-09-19 15:32 | PDOC.HOSPP ---
- Subjective Encounter Date: 09/19/20 Encounter Time: 15:31 Subjective: Mr. Torre was seen today in follow-up of MSSA Bacteremia. He does not have any complaints this afternoon. - Objective Vital Signs & Weight: Vital Signs (12 hours) Temp Pulse Resp BP BP Pulse Ox Pulse Ox 09/19/20 15:01 98.1 F 60 20 118/69 94 L 09/19/20 11:52 97.7 F 60 18 113/62 94 L 09/19/20 11:00 95 09/19/20 07:41 97.5 F L 64 17 134/62 93 L 09/19/20 04:00 60 128/74 Pulse Ox Pulse Ox 09/19/20 15:01 09/19/20 11:52 09/19/20 11:00 99 98 09/19/20 07:41 09/19/20 04:00 Weight Weight 225 lb Most Recent Monitor Data Heart Rate from ECG 87 NIBP 127/67 NIBP BP-Mean 87 Respiration from ECG 19 SpO2 97 I&O: 09/18/20 09/19/20 09/20/20 06:59 06:59 06:59 Intake Total 2760 1180 Output Total 2710 400 Balance 50 780 Result Diagrams: 09/18/20 03:10 09/18/20 03:10 Additional Labs: Accuchecks 09/19/20 09/19/20 09/18/20 11:04 06:45 21:33 POC Glucose 256 H 197 H 177 H 09/18/20 09/18/20 20:50 16:49 POC Glucose 181 H 194 H Hospitalist ROS - Medication Medications: Active Medications Generic Name Dose Route Start Last Admin Trade Name Freq PRN Reason Stop Dose Admin Hydrocodone Bitart/Acetaminophen 1 tab 09/13/20 17:14 09/18/20 23:42 Hydrocodone/Acetaminophen 5/325 Mg Tablet PO 1 tab Q4H PRN Administration Moderate Pain (4-6) Amiodarone HCl 200 mg 09/19/20 09:00 09/19/20 08:47 Amiodarone 200 Mg Tab PO 10/02/20 21:01 200 mg BID AUDREY Administration Aspirin 81 mg 09/14/20 09:00 09/19/20 08:47 Aspirin Chewable 81 Mg Tab PO 81 mg DAILY AUDREY Administration Atorvastatin Calcium 40 mg 09/13/20 21:00 09/18/20 21:35 Atorvastatin Calcium 40 Mg Tab PO 40 mg HS AUDREY Administration Carvedilol 1.5625 mg 09/14/20 08:00 09/19/20 08:46 Carvedilol 3.125 Mg Tab PO 1.5625 mg BID-WM AUDREY Administration Famotidine 20 mg 09/15/20 21:00 09/19/20 08:47 Famotidine 20 Mg Tab PO 20 mg BID AUDREY Administration Furosemide 20 mg 09/14/20 09:00 09/19/20 08:46 Furosemide 20 Mg Tab PO 20 mg DAILY AUDREY Administration Cefepime HCl 2 gm/ Sodium 100 mls @ 200 mls/hr 09/14/20 02:00 09/19/20 13:46 Chloride IVPB 100 mls 0200,1400 AUDREY Administration Vancomycin HCl 1.25 gm/ Sodium 250 mls @ 166.667 mls/hr 09/18/20 14:00 09/19/20 14:52 Chloride IVPB 250 mls Q8HR AUDREY Administration Insulin Human Lispro 0 units 09/13/20 17:23 09/19/20 11:59 Humalog 300 Units/3 Ml Vial SC 6 unit .MODERATE SLIDING SC PRN Administration Moderate Correctional Scale Levetiracetam 500 mg 09/13/20 21:00 09/19/20 08:46 Levetiracetam 500 Mg Tab PO 500 mg BID AUDREY Administration Lisinopril 2.5 mg 09/14/20 09:00 09/19/20 08:47 Lisinopril 2.5 Mg Tab PO 2.5 mg DAILY AUDREY Administration Metformin HCl 850 mg 09/18/20 17:00 09/19/20 08:48 Metformin 850 Mg Tab PO 850 mg BID-WM AUDREY Administration Rivaroxaban 20 mg 09/14/20 17:00 09/18/20 17:12 Rivaroxaban 10 Mg Tab PO 20 mg 1700 AUDREY Administration Sodium Chloride 10 ml 09/14/20 21:00 09/19/20 08:47 Flush - Normal Saline 10 Ml Syringe IVF 10 ml Q12HR AUDREY Administration - Exam Eye: PERRL, anicteric sclera Heart: RRR, no murmur, no gallops, no rubs, normal peripheral pulses Respiratory: CTAB, no wheezes, no rales, no ronchi, normal chest expansion Gastrointestinal: soft, non-tender, non-distended, normal bowel sounds, no palpable masses Extremities: no cyanosis, no edema Hosp A/P (1) MSSA bacteremia Code(s): R78.81 - BACTEREMIA; B95.61 - METHICILLIN SUSCEP STAPH INFCT CAUSING DIS CLASSD ELSWHR Status: Acute (2) Cardiomyopathy Code(s): I42.9 - CARDIOMYOPATHY, UNSPECIFIED Status: Chronic Qualifiers: Cardiomyopathy type: unspecified Qualified Code(s): I42.9 - Cardiomyopathy, unspecified (3) Diabetes mellitus Code(s): E11.9 - TYPE 2 DIABETES MELLITUS WITHOUT COMPLICATIONS Status: [facility] Qualifiers: Diabetes mellitus type: type 2 Diabetes mellitus terminal gauger insulin use: without terminal gauger use - Plan * MSSA Bacteremia- continue Cefepime * He will need at least 4 weeks of Cefazolin upon discharge * DM- blood glucose is elevated- blood glucose level is a bit better * HTN- blood pressure is stable * Cardiomyopathy- compensated
[2020-09-19] MEDS: Rivaroxaban 10 MG TAB PO SCH (17:13)
[2020-09-19] MEDS: Atorvastatin Calcium 40 MG TAB PO SCH (20:47)
[2020-09-20] MEDS: Cefepime 2 GM in Sodium Chloride 0.9% 100 ML IVPB SCH ×2 (02:46→15:17)
[2020-09-20] MEDS: Vancomycin HCl 1.25 GM in Sodium Chloride 0.9% 250 ML 250 ML IVPB SCH ×2 (06:16→15:17)
[2020-09-20] MEDS: HumaLOG 300 UNITS/3 ML VIAL SC PRN ×2 (07:24→12:05)
[2020-09-20 07:57] LABS: #Eosinphils 0.1 thou/uL (0.0-0.7); #Lymphocytes 1.2 thou/uL (1.20-3.40); #Monocytes 0.6 thou/uL (0.11-0.59); #Neutrophils 5.2 thou/uL (1.40-6.50); %Basophils 0.2 % (0.0-1.0); %Lymphocytes 16.5 % (21.0-51.0); %Monocytes 7.7 % (0.0-10.0); %Neutrophils 73.6 % (42.0-75.0); Hemoglobin 13.1 g/dL (14.0-18.0); Mean Corpuscular HGB CONC 32.5 g/dL (32.0-36.0); Mean Corpuscular Hemoglobin 27.7 pg (27.0-31.0); Mean Corpuscular Volume 85.2 fL (78.0-98.0); Mean Platelet Volume 7.6 fL (7.4-10.4); Platelet Count 284 thou/uL (130-400); RBC Distribution Width 13.3 % (11.5-14.5); Red Blood Cell (RBC) Count 4.73 mill/uL (4.70-6.10); White Blood Cell (WBC) Count 7.1 thou/uL (4.8-10.8)
[2020-09-20 08:14] LABS: Anion Gap 11 mmol/L (10-20); BUN (Urea Nitrogen) 8 mg/dL (8.4-25.7); Calc. Creatinine Clearance 135 mL/min (70-130); Calcium 8.7 mg/dL (7.8-10.44); Carbon Dioxide 34 mmol/L (23-31); Chloride 97 mmol/L (98-107); Estimated GFR-MDRD Greater than 90; Glucose 224 mg/dL (80-115); Potassium 4.2 mmol/L (3.5-5.1); Sodium 138 mmol/L (136-145)
[2020-09-20] MEDS: metFORMIN 850 MG TAB PO SCH (08:28)
[2020-09-20] MEDS: Carvedilol 3.125 MG TAB PO SCH (08:28)
[2020-09-20] MEDS: Furosemide 20 MG TAB PO SCH (08:29)
[2020-09-20] MEDS: Aspirin Chewable 81 MG TAB PO SCH (08:29)
[2020-09-20] MEDS: Amiodarone 200 MG TAB PO SCH (08:29)
[2020-09-20] MEDS: levETIRAcetam 500 MG TAB PO SCH (08:29)
[2020-09-20] MEDS: Famotidine 20 MG TAB PO SCH (08:29)
[2020-09-20] MEDS: Lisinopril 2.5 MG TAB PO SCH (08:29)
[2020-09-20 12:12] VITALS: BP 131/65; TEMP 97.8
--- NOTE | 2020-09-20 12:25 | PDOC.HOSPP ---
- Subjective Encounter Date: 09/20/20 Encounter Time: 12:23 Subjective: Mr. Torre was seen today in follow-up of MSSA Bacteremia. He does not have any complaints. - Objective Vital Signs & Weight: Vital Signs (12 hours) Temp Pulse Resp BP Pulse Ox 09/20/20 12:08 97.8 F 63 21 H 131/65 94 L 09/20/20 07:33 97.4 F L 65 20 124/60 95 09/20/20 04:00 97.6 F 63 16 122/58 L 92 L Weight Weight 223 lb 9.6 oz Most Recent Monitor Data Heart Rate from ECG 87 NIBP 127/67 NIBP BP-Mean 87 Respiration from ECG 19 SpO2 97 I&O: 09/19/20 09/20/20 09/21/20 06:59 06:59 06:59 Intake Total 1180 2500 Output Total 400 3040 Balance 780 -540 Result Diagrams: 09/20/20 07:44 09/20/20 07:44 Additional Labs: Accuchecks 09/20/20 09/20/20 09/19/20 10:53 06:33 19:57 POC Glucose 196 H 208 H 187 H 09/19/20 17:07 POC Glucose 188 H Hospitalist ROS - Medication Medications: Active Medications Generic Name Dose Route Start Last Admin Trade Name Freq PRN Reason Stop Dose Admin Hydrocodone Bitart/Acetaminophen 1 tab 09/13/20 17:14 09/18/20 23:42 Hydrocodone/Acetaminophen 5/325 Mg Tablet PO 1 tab Q4H PRN Administration Moderate Pain (4-6) Amiodarone HCl 200 mg 09/19/20 09:00 09/20/20 08:29 Amiodarone 200 Mg Tab PO 10/02/20 21:01 200 mg BID AUDREY Administration Aspirin 81 mg 09/14/20 09:00 09/20/20 08:29 Aspirin Chewable 81 Mg Tab PO 81 mg DAILY AUDREY Administration Atorvastatin Calcium 40 mg 09/13/20 21:00 09/19/20 20:47 Atorvastatin Calcium 40 Mg Tab PO 40 mg HS AUDREY Administration Carvedilol 1.5625 mg 09/14/20 08:00 09/20/20 08:28 Carvedilol 3.125 Mg Tab PO 1.5625 mg BID-WM AUDREY Administration Famotidine 20 mg 09/15/20 21:00 09/20/20 08:29 Famotidine 20 Mg Tab PO 20 mg BID AUDREY Administration Furosemide 20 mg 09/14/20 09:00 09/20/20 08:29 Furosemide 20 Mg Tab PO 20 mg DAILY UADREY Administration Cefepime HCl 2 gm/ Sodium 100 mls @ 200 mls/hr 09/14/20 02:00 09/20/20 02:46 Chloride IVPB 100 mls 0200,1400 AUDREY Administration Vancomycin HCl 1.25 gm/ Sodium 250 mls @ 166.667 mls/hr 09/18/20 14:00 09/20/20 06:16 Chloride IVPB 250 mls Q8HR AUDREY Administration Insulin Human Lispro 0 units 09/13/20 17:23 09/20/20 12:05 Humalog 300 Units/3 Ml Vial SC 2 unit .MODERATE SLIDING SC PRN Administration Moderate Correctional Scale Levetiracetam 500 mg 09/13/20 21:00 09/20/20 08:29 Levetiracetam 500 Mg Tab PO 500 mg BID AUDREY Administration Lisinopril 2.5 mg 09/14/20 09:00 09/20/20 08:29 Lisinopril 2.5 Mg Tab PO 2.5 mg DAILY AUDREY Administration Metformin HCl 850 mg 09/18/20 17:00 09/20/20 08:28 Metformin 850 Mg Tab PO 850 mg BID-WM AUDREY Administration Rivaroxaban 20 mg 09/14/20 17:00 09/19/20 17:13 Rivaroxaban 10 Mg Tab PO 20 mg 1700 AUDREY Administration Sodium Chloride 10 ml 09/14/20 21:00 09/20/20 08:30 Flush - Normal Saline 10 Ml Syringe IVF 10 ml Q12HR AUDREY Administration - Exam Eye: PERRL, anicteric sclera Heart: RRR, no murmur, no gallops, no rubs, normal peripheral pulses Respiratory: CTAB, no wheezes, no rales, no ronchi, normal chest expansion, no t achypnea Gastrointestinal: soft, non-tender, non-distended, normal bowel sounds, no palpable masses, no hepatomegaly Extremities: no cyanosis, no edema Hosp A/P (1) MSSA bacteremia Code(s): R78.81 - BACTEREMIA; B95.61 - METHICILLIN SUSCEP STAPH INFCT CAUSING DIS CLASSD ELSWHR Status: Acute (2) Cardiomyopathy Code(s): I42.9 - CARDIOMYOPATHY, UNSPECIFIED Status: Chronic Qualifiers: Cardiomyopathy type: unspecified Qualified Code(s): I42.9 - Cardiomyopathy, unspecified (3) Diabetes mellitus Code(s): E11.9 - TYPE 2 DIABETES MELLITUS WITHOUT COMPLICATIONS Status: Chronic Qualifiers: Diabetes mellitus type: type 2 Diabetes mellitus pick remover insulin use: without pick remover use - Plan * MSSA Bacteremia- Outpatient antibiotics are being arranged * He will need at least 4 weeks of Cefazolin upon discharge * DM- blood glucose is better * HTN- blood pressure is stable * Cardiomyopathy- compensated
[2020-09-20 13:10] LABS: Vancomycin, Trough 19.1 ug/mL
[2020-09-20] MEDS ORDERED: CEFAZOLIN 2 GM in Premix Bag 1 BAG IVPB SCH (14:00)
--- NOTE | 2020-09-20 17:38 | PDOC.DS.DS ---
Provider - Provider Date of Admission: 09/13/20 15:46 Date of Discharge: 09/20/20 Admitting Provider: Ivis Nicholas MD Consultations: Cardiology, Infectious Disease Primary Care Physician: Clint Palma MD Course - Hospital Course Hospital Course: Mr. Vasquez is a 70-year-old gentleman that has a history of hypertension diabetes and atrial fibrillation. He was found down. He does not know if he fell or passed out. He was brought to the emergency room where he was found to be febrile with a temperature of 103. Urinalysis was consistent with urinary tract infection. He was admitted to the hospital and started on empiric IV antibiot ics. Urine culture was positive for mixed skin carole. However blood cultures revealed staph aureus which was methicillin sensitive. It was 2 out of 2 cultures which were positive. For this reason an infectious disease consult was obtained. And he underwent echocardiogram to rule out endocarditis. This was negative. CT of the abdomen and pelvis did not reveal any significant findings. And it was felt that this could potentially be endocarditis despite the negative echocardiogram. Since the organism with met was methicillin sensitive he will be discharged on Cefazolin. He will need an approximately 4-week course of therapy. Once the arrangements were made for him to receive outpatient IV antibiotics the patient was able to be discharged home. Please note that the patient also had a transesophageal echo which was also negative for vegetations. The patient on admission had a CT scan of the brain as well as a CT scan of the cervical spine both of which were negative for bleed or for fracture. Resuscitation Status: 09/13/20 17:14 Resuscitation Status Routine Resuscitation Status: FULL: Full Resuscitation Discussed with: pt - Labs Lab Results: 09/20/20 07:44 09/20/20 07:44 Abnormal Lab Results - Last 48 hrs 09/20/20 07:44: Chloride 97 L, Carbon Dioxide 34 H, BUN 8 L 09/20/20 07:44: Hgb 13.1 L, Hct 40.3 L, Lymphocytes % 16.5 L, Monocytes # 0.6 H Microbiology - Entire Visit 09/13/20 13:56 Venous blood - Left Arm Blood Culture - Final Staphylococcus aureus 09/13/20 13:56 Venous blood - Right Arm Blood Culture - Final Staphylococcus aureus 09/13/20 15:00 Urine voided Urine Culture - Final - Physical Exam Vitals: Vital Signs (12 hours) Temp Pulse Resp BP Pulse Ox 09/20/20 12:08 97.8 F 63 21 H 131/65 94 L 09/20/20 07:33 97.4 F L 65 20 124/60 95 Weight Weight 223 lb 9.6 oz Most Recent Monitor Data Heart Rate from ECG 87 NIBP 127/67 NIBP BP-Mean 87 Respiration from ECG 19 SpO2 97 Physical Exam: The patient was seen and examined on the day of discharge. Problem - Problem (1) MSSA bacteremia Code(s): R78.81 - BACTEREMIA; B95.61 - METHICILLIN SUSCEP STAPH INFCT CAUSING DIS CLASSD ELSWHR Status: Acute (2) Cardiomyopathy Code(s): I42.9 - CARDIOMYOPATHY, UNSPECIFIED Status: Chronic Qualifiers: Cardiomyopathy type: unspecified Qualified Code(s): I42.9 - Cardiomyopathy, unspecified (3) Diabetes mellitus Code(s): E11.9 - TYPE 2 DIABETES MELLITUS WITHOUT COMPLICATIONS Status: Chronic Qualifiers: Diabetes mellitus type: type 2 Diabetes mellitus fci insulin use: without intermediate accountant use Plan - Discharge Medications Prescriptions: Cefazolin [Ancef] 2 gm IV Q8HR 21 Days bag Amiodarone [Cordarone] 200 mg PO BID #60 tab metFORMIN [Glucophage] 850 mg PO BID-WM #60 tab Home Medications: Medication Instructions Recorded Confirmed Type Atorvastatin Calcium [Lipitor] 40 mg PO HS #30 tab 11/26/19 09/18/20 Rx Lisinopril 2.5 mg PO DAILY 01/04/20 09/18/20 History Rivaroxaban [Xarelto] 20 mg PO 1800 30 Days #30 tab 01/08/20 09/18/20 Rx levETIRAcetam [Keppra] 500 mg PO BID 09/18/20 09/18/20 History Amiodarone [Cordarone] 200 mg PO BID #60 tab 09/20/20 Rx Cefazolin [Ancef] 2 gm IV Q8HR 21 Days bag 09/20/20 Rx metFORMIN [Glucophage] 850 mg PO BID-WM #60 tab 09/20/20 Rx Allergies: NSAIDS (Non-Steroidal Anti-Inflamma Allergy (Verified 01/04/20 21:34) PER ER NOTES - Discharge Instructions Activity:: Activity as Tolerated Nourishment:: Heart Healthy Diet Therapies:: Home Health - Follow up Plan Referrals: [facility] [Outside] (detention for home iv infusion follow up, weekly labs, and Blood cultures x2. ) [facility] [Outside] (Home IV Antibiotic Ancef 2 Gram every 8 hours through October 11, 2020.) Clint Palma MD [Primary Care Provider] - 7 Days (Please call the office to schedule a follow up appointment with your primary care provider.) Disposition: HOME HEALTH Quality - Care Measures CORE MEASURES:: N/A
[2020-10-03] MEDS ORDERED: Amiodarone 200 MG TAB PO SCH (09:00)
== END 2020-09-20 15:20 | disposition home health service (06) | DRG 871 ==
LOC: ERS 13:34 → IMCU/EMU 15:46 → 2NO 09-14 18:33
PROVIDERS: ADMIT Hospitalist; ATTEND Internal Medicine
PROC: B24BZZ4 Ultrasonography of Heart with Aorta, Transesophageal (ICD-10-PCS; principal; 2020-09-16)
PROC: 02HV33Z Insertion of Infusion Device into Superior Vena Cava, Percutaneous Approach (ICD-10-PCS; 2020-09-17)
PROC: B548ZZA Ultrasonography of Superior Vena Cava, Guidance (ICD-10-PCS; 2020-09-17)
DX: A41.01 Sepsis due to Methicillin susceptible Staphylococcus aureus (principal); I21.A1 Myocardial infarction type 2; I50.23 Acute on chronic systolic (congestive) heart failure; M62.82 Rhabdomyolysis; N17.9 Acute kidney failure, unspecified; N30.00 Acute cystitis without hematuria; I42.8 Other cardiomyopathies; I47.2 Ventricular tachycardia; Z20.828 Contact with and (suspected) exposure to other viral communicable diseases; I11.0 Hypertensive heart disease with heart failure; M10.9 Gout, unspecified; G40.909 Epilepsy, unspecified, not intractable, without status epilepticus; F17.210 Nicotine dependence, cigarettes, uncomplicated; I48.91 Unspecified atrial fibrillation; E87.6 Hypokalemia; R65.20 Severe sepsis without septic shock; I44.7 Left bundle-branch block, unspecified; E78.00 Pure hypercholesterolemia, unspecified; I08.0 Rheumatic disorders of both mitral and aortic valves; I08.3 Combined rheumatic disorders of mitral, aortic and tricuspid valves; I25.5 Ischemic cardiomyopathy; Z28.21 Immunization not carried out because of patient refusal; Z95.810 Presence of automatic (implantable) cardiac defibrillator; Z90.49 Acquired absence of other specified parts of digestive tract; Z79.899 Other long term (current) drug therapy; Z79.82 Long term (current) use of aspirin; Z79.84 Long term (current) use of oral hypoglycemic drugs
CPT/HCPCS: 36415; 36416; 36569; 70450; 71045; 71260; 72125; 74177; 80048; 80053; 80061; 80202; 80306; 80307; 81003; 81015; 82550; 82553; 82565; 83605; 84443; 84484; 85014; 85018; 85025; 85049; 87040; 87077; 87086; 87149; 87186; 93005; 93306; 93312; C1751; J0690; J0692; J2704; J3370; J3490; J7050; Q9967; U0002

== ENCOUNTER 2020-09-24 12:56 | Emergency (ER) | payer MEDICARE ==
--- NOTE | 2020-09-24 14:01 | RAD ---
PORTABLE CHEST ONE VIEW: 09/24/20 at 1:52 p.m. HISTORY: Chest pain, left arm pain. FINDINGS/IMPRESSION: No significant interval change is seen since the earlier exam of 8:33 a.m. from the same date. POS: AH
[2020-09-24 14:25] LABS: #Basophils 0.1 thou/uL (0.0-0.2); #Eosinphils 0.1 thou/uL (0.0-0.7); #Lymphocytes 1.2 thou/uL (1.20-3.40); #Monocytes 0.4 thou/uL (0.11-0.59); #Neutrophils 6.4 thou/uL (1.40-6.50); %Basophils 0.8 % (0.0-1.0); %Monocytes 5.4 % (0.0-10.0); %Neutrophils 78.7 % (42.0-75.0); Hemoglobin 13.3 g/dL (14.0-18.0); Mean Corpuscular HGB CONC 32.5 g/dL (32.0-36.0); Mean Corpuscular Hemoglobin 27.4 pg (27.0-31.0); Mean Corpuscular Volume 84.2 fL (78.0-98.0); Mean Platelet Volume 7.2 fL (7.4-10.4); Platelet Count 343 thou/uL (130-400); RBC Distribution Width 13.5 % (11.5-14.5); Red Blood Cell (RBC) Count 4.86 mill/uL (4.70-6.10); White Blood Cell (WBC) Count 8.2 thou/uL (4.8-10.8)
[2020-09-24 14:45] LABS: ALT (SGPT) 20 U/L (8-55); AST (SGOT) 26 U/L (5-34); Albumin 3.4 g/dL (3.4-4.8); Alkaline Phosphatase 98 U/L (40-110); Anion Gap 15 mmol/L (10-20); BUN (Urea Nitrogen) 13 mg/dL (8.4-25.7); Bilirubin, Total 0.9 mg/dL (0.2-1.2); Calc. Creatinine Clearance 0 mL/min (70-130); Calcium 9.2 mg/dL (7.8-10.44); Carbon Dioxide 29 mmol/L (23-31); Chloride 97 mmol/L (98-107); Estimated GFR-MDRD Greater than 90; Globulin 3.4 g/dL (2.4-3.5); Glucose 164 mg/dL (80-115); Potassium 4.1 mmol/L (3.5-5.1); Protein, Total 6.8 g/dL (5.8-8.1); Sodium 137 mmol/L (136-145)
--- NOTE | 2020-09-24 15:38 | ULT ---
Exam: Left upper extremity venous ultrasound with Doppler HISTORY: PICC line placement. Swelling and edema. TECHNIQUE: Grayscale, color flow, Doppler imaging spectral waveform analysis FINDINGS: Limited evaluation due to bandage material Visualized left upper upper extremity venous system demonstrates patency and flow. The PICC line is n ot visualized in its entirety. A portion PICC line is noted in the axillary vein. There is mild soft tissue edema. IMPRESSION: No evidence of thrombus in the visualized left upper extremity arterial system. There is compressibil ity and flow in the internal jugular vein. Flow in the subclavian vein, axillary vein, brachial vein, radial vein, cephalic vein. Proximal basilic vein is only partially visualized. Distal basilic vein is not appreciated. Transcribed Date/Time: 09/24/2020 3:40 PM
[2020-09-24] MEDS ORDERED: Furosemide 40 MG/4 ML VIAL ONE (16:42)
== END 2020-09-24 17:36 | disposition home or self-care (01) ==
LOC: ERS 12:56
DX: I11.0 Hypertensive heart disease with heart failure (principal); I50.9 Heart failure, unspecified; R60.9 Edema, unspecified; E78.5 Hyperlipidemia, unspecified; E78.00 Pure hypercholesterolemia, unspecified; E11.9 Type 2 diabetes mellitus without complications; M10.9 Gout, unspecified; Z87.891 Personal history of nicotine dependence; Z79.899 Other long term (current) drug therapy; Z79.84 Long term (current) use of oral hypoglycemic drugs
CPT/HCPCS: 36415; 71045; 85379; 96374; J1940